=== PATIENT | female | born 1970 | race Caucasian/White ===

== ENCOUNTER → 2019-12-23 17:55 | Outpatient (CLI) | payer OTHER, SELFPAY ==
[2019-12-23 18:17] LABS: Basophils # 0.1 K/mm3 (0-0.2); Basophils % 0.5 % (0.1-2.0); Eosinophils # 0.3 K/mm3 (0.0-0.4); Eosinophils % 2.6 % (0.1-12.0); Hematocrit 42.7 % (37.0-47.0); Hemoglobin 14.4 g/dL (12.2-16.2); Lymphocytes # 2.9 K/mm3 (0.7-4.5); Lymphocytes % 26.7 % (10-50); Mean Corpuscular HGB Conc 33.7 g/dL (31.8-35.4); Mean Corpuscular Hemoglobin 30.6 pg (27.0-31.2); Mean Corpuscular Volume 90.7 fl (81-99); Mean Platelet Volume 8.8 fl (7.4-10.4); Monocytes # 0.6 K/mm3 (0.1-1.0); Monocytes % 5.5 % (1.7-9.3); Neutrophils # 7.1 K/mm3 (1.8-7.8); Neutrophils % 64.6 % (37.0-80.0); Platelet Count 363 K/mm3 (142-424); Red Blood Count 4.71 M/mm3 (4.20-5.40); Red Cell Distribution Width 15.3 % (11.5-17.5); White Blood Count 10.9 K/mm3 (4.8-10.8)
[2019-12-23 18:19] LABS: Chloride 108 mmol/L (98-107); Potassium 4.2 mmoL/L (3.5-5.1); Sodium 142 mmol/L (136-145)
[2019-12-23 18:21] LABS: Blood Urea Nitrogen 8 mg/dl (7-17); Estimated Glomerular Filt Rate 76 ml/min (>60); GFR (African American) 92 ML/MIN (>60)
[2019-12-23 18:22] LABS: Alanine Aminotransferase 19 U/L (12-78); Albumin Level 4.4 g/dl (3.5-5.0); Albumin/Globulin Ratio 1.5 (1.1-1.8); Alkaline Phosphatase 89 U/L (38-126); Anion Gap 14.2 mEq/L (5-15); Aspartate Amino Transferase 27 U/L (14-36); Bilirubin,Total 0.5 mg/dl (0.2-1.3); Calcium 9.9 mg/dl (8.4-10.2); Carbon Dioxide 24 mmol/L (22.0-30.0); Creatine Kinase 112 U/L (30-135); Globulin 2.9 g/dL (1.3-3.2); Glucose 102 mg/dl (74-100); Total Protein,Serum 7.3 g/dl (6.3-8.2)
[2019-12-23 18:28] LABS: C-Reactive Protein 10.6 mg/L (0-4)
[2019-12-23 18:39] LABS: T4 (Thyroxine) 13.5 ug/dl (5.53-11.0)
[2019-12-23 18:53] LABS: Thyroid Stimulating Hormone 1.79 uIU/mL (0.465-4.68)
[2019-12-23 18:54] LABS: Hemoglobin A1C 5.8 % (4.0-6.0)
== END ==
PROVIDERS: Visit Provider Family Medicine
DX: R53.83 Other fatigue (principal)
CPT/HCPCS: 80053; 82550; 83036; 84436; 84443; 85025; 86140

== ENCOUNTER → 2020-01-01 17:52 | Outpatient (CLI) | payer OTHER, SELFPAY ==
[2020-01-01 19:25] LABS: Erythrocyte Sedimentation Rate 17 mm/hr (0-20)
[2020-01-05 15:46] LABS: Anti-Centromere B Antibodies <0.2 AI (0.0-0.9); Anti-Jo-1 <0.2 AI (0.0-0.9); Anti-Smith Antibody <0.2 AI (0.0-0.9); Antichromatin Antibodies <0.2 AI (0.0-0.9); Antiscleroderma-70 Antibodies <0.2 AI (0.0-0.9); RNP Antibodies <0.2 AI (0.0-0.9); Sjogren's Anti-SS-A <0.2 AI (0.0-0.9); Sjogren's Anti-SS-B <0.2 AI (0.0-0.9)
[2020-01-06 09:59] LABS: Anti-DNA (DS) Ab Qn 1 IU/mL (0-9)
== END ==
PROVIDERS: Visit Provider Nurse Practitioner Family
DX: M25.50 Pain in unspecified joint (principal)
CPT/HCPCS: 85651; 86225; 86235

== ENCOUNTER → 2021-05-10 16:00 | Outpatient (CLI) | payer MEDICAID, SELFPAY | PROVIDERS: Visit Provider Family Medicine | DX: R42 Dizziness and giddiness (principal) | CPT/HCPCS: 87086 ==

== ENCOUNTER → 2021-06-23 07:09 | Outpatient (CLI) | payer MEDICAID, SELFPAY ==
--- NOTE | 2021-06-23 | CA_ITS ---
APPROVED REPORT Exam: Pharmacologic Technologist: Coby Garzon, Ht: 5 ft 3 in Wt: 167 lbs BSA: 1.79 m2 HR: 76 bpm BP: 112/79 mmHg Rhythm: NSR, RIGHTWARD AXIS, T WAVE ABNS ANTERIORLY Medical History Medications: Omeprazole,,,,, Albuterol,,,,, Allergies: No known drug allergies Cardiac Risk Factors: FHX of CAD, Smoking Stress Test Details Test: LEXISCAN HR Resting HR: 81 bpm Max Heart Rate (APMHR): 168.568401 bpm Max HR Achieved: 125 bpm Target HR (85% APMHR): 142.150216 bpm % of APMHR: 74.40 Recovery HR: 90 bpm BP Resting BP: 112/79 mmHg Max BP: 166/85 mmHg Recovery BP: 129.0/85.0 mmHg ECG Resting ECG: NSR, RIGHTWARD AXIS T WAVE ABNS ANTERIOLY Clinical Exercise duration: 04:05 min Highest Stage Achieved: Stress ECG Conclusion PT HAD CHEST PRESSURE, MILD NAUSEA, MILD SOA, AND HEAD DISCOMFORT. RARE PVC. NO SIGNIFICANT CHANGES. UNREMARKABLE LEXISCAN STRESS. MYOVIEW IMAGES REPORTED SEPARATELY. Test Summary REST 02:46 . . 81 . 112/ 79 . . Stage 1 01:00 . . 122 . . . . Stage 2 01:00 . . 117 . 153/ 91 . . Stage 3 01:00 . . 107 . 166/ 85 . . Stage 4 01:00 . . 101 . 132/ 79 . . Stage 4 01:05 . . 99 . 132/ 79 . Stop exercise at 04:05 RECOVERY 01:00 . . 100 . . . . RECOVERY 02:00 . . 91 . 113/ 82 . . RECOVERY 03:00 . . 97 . 118/ 85 . . RECOVERY 04:00 . . 90 . 118/ 85 . . RECOVERY 05:00 . . 91 . 129/ 85 . . RECOVERY 05:16 . . 91 . 129/ 85 . . Electronically signed by : Donnie Olmos MD 06/24/2021 11:57:29
--- NOTE | 2021-06-23 07:10 | NM_ITS ---
APPROVED REPORT Exam: Nuclear Stress Test Indication: chest pain Patient Location: Outpatient Stress Tech: Coby Garzon [place] Tech:Ivy Sheffield JETBrandon RT(R)(N) Ht: 5 ft 2 in Wt: 145 lbs Bra Size: 36c HR: 76 bpm BP: 112/79 mmHg BSA: 1.67 m2 BMI: 26.5 Procedure: Patient received a 0.4 mg of intravenous Lexiscan, resting heart rate 76 bpm, resting blood pressure 112/79 mmHg, with Lexiscan maximum heart rate achived was 118 bpm which is 85 % of the maximum predicted heart rate and blood pressure was 153/91 mmHg. Electrocardiogram Resting electrocardiogram shows sinus rhythm nonspecific ST-T changes, with Lexiscan there is less than 1.[address] segment depression noted from the baseline EKG. The EKG portion of the Lexiscan is nondiagnostic. Cardiac Stress and Resting SPECT Images: Cardiac Stress and Resting SPECT images were obtained using technetium 99m Myoview 29.9 mCi stress and 10.48 mCi at rest. Gated SPECT for analysis of segmental wall motion and calculation of the ejection fraction also done. Prone images were also obtained. Cardiac stress and resting SPECT images show a mild fixed defect in the anterior wall with normal contractility gated SPECT is likely secondary to soft tissue attenuation, no reversible ischemia seen, compared right ejection fraction is 68% with no regional wall motion abnormality, right ventricle is normal size and contractility. Conclusion: 1. The EKG portion of the exercise Myoview is nondiagnostic. 2. No scintigraphic evidence of reversible ischemia seen, computer derived ejection fraction is 68% with no regional wall motion abnormality, right ventricle is normal size and contractility. 3. Likely normal Lexiscan Myoview study. Electronically signed by : Donnie Olmos MD 06/24/2021 12:00:27
== END ==
PROVIDERS: PCP Family Medicine; Visit Provider Family Medicine
DX: R07.9 Chest pain, unspecified (principal)
CPT/HCPCS: 78452; 93017; A9502; J2785

== ENCOUNTER → 2022-01-17 12:35 | Outpatient (CLI) | payer MEDICAID, SELFPAY ==
--- NOTE | 2022-01-17 12:41 | XR_ITS ---
FINAL REPORT CLINICAL HISTORY: foot pain FINDINGS: LEFT FOOT Three views of the left foot demonstrate no acute fracture or dislocation. The visualized joint spaces are normally aligned. The joint spaces are preserved. The soft tissues are unremarkable. IMPRESSION: No acute bony abnormality. Reviewed, Interpreted and Dictated by Sammy Vasquez III, MD Transcribed by Honey Rob Authenticated and [facility]
--- NOTE | 2022-01-17 12:41 | XR_ITS ---
FINAL REPORT CLINICAL HISTORY: foot pain FINDINGS: RIGHT FOOT Three views of the right foot demonstrate no acute fracture or dislocation. The visualized joint spaces are normally aligned. The joint spaces are preserved. The soft tissues are unremarkable. IMPRESSION: No acute bony abnormality. Reviewed, Interpreted and Dictated by Sammy Vasquez III, MD Transcribed by Honey Rob Authenticated and [facility]
== END ==
PROVIDERS: PCP Family Medicine; Visit Provider Podiatrist
DX: M79.671 Pain in right foot (principal); M79.672 Pain in left foot
CPT/HCPCS: 73630

== ENCOUNTER → 2022-02-07 13:20 | Outpatient (CLI) | payer MEDICAID, SELFPAY ==
--- NOTE | 2022-02-07 13:20 | US_ITS ---
FINAL REPORT CLINICAL HISTORY: CLAUDICATION,REST PAIN,SMOKER,HLD FINDINGS: ANKLE-BRACHIAL PRESSURE INDICES Pressure indices are as follows: RIGHT LOWER EXTREMITY: Ankle-brachial pressure index: 1.0 Comments: Normal LEFT LOWER EXTREMITY: Ankle-brachial pressure index: 1.0 Comments: Normal CONCLUSION: No evidence of significant obstructive peripheral vascular disease of the lower extremities Reviewed, Interpreted and Dictated by Apolinar Sims MD Transcribed by Honey Rob Authenticated and [facility]
--- NOTE | 2022-02-07 14:11 | US_ITS ---
FINAL REPORT CLINICAL HISTORY: palpable fullness-- hx pf cancer FINDINGS: Sonographic images of the thyroid were obtained. The right lobe of the thyroid measures 4.8 x 1.8 x 2.2 cm. The left lobe of the thyroid measures 3.6 x 1.3 x 1.8 cm. The thyroid is heterogeneous. No discrete nodules are identified, may be related to diffuse goiter. IMPRESSION: Heterogeneous thyroid, may be related to diffuse goiter. Reviewed, Interpreted and Dictated by Apolinar Sims MD Transcribed by Fátima Thompson Authenticated and [facility]
== END ==
PROVIDERS: PCP Family Medicine; Visit Provider Family Medicine
DX: R22.1 Localized swelling, mass and lump, neck (principal)
CPT/HCPCS: 76536; 93923

== ENCOUNTER → 2022-04-11 14:00 | Outpatient (CLI) | payer MEDICAID, SELFPAY ==
[2022-04-11 18:27] LABS: Free T4 (Free Thyroxine) 1.39 ng/dl (0.78-2.19)
[2022-04-11 21:35] LABS: Thyroid Stimulating Hormone 1.13 uIU/mL (0.465-4.68)
== END ==
PROVIDERS: PCP Family Medicine; Visit Provider Family Medicine
DX: R53.83 Other fatigue (principal)
CPT/HCPCS: 84439; 84443

== ENCOUNTER → 2022-08-04 16:15 | Outpatient (CLI) | payer MEDICAID, SELFPAY ==
[2022-08-04 18:13] LABS: Basophils # 0.1 K/mm3 (0-0.2); Basophils % 0.4 % (0.1-2.0); Eosinophils # 0.3 K/mm3 (0.0-0.4); Hemoglobin 14.1 g/dL (12.2-16.2); Lymphocytes # 3.3 K/mm3 (0.7-4.5); Lymphocytes % 25.5 % (10-50); Mean Corpuscular HGB Conc 32.7 g/dL (31.8-35.4); Mean Corpuscular Hemoglobin 30.4 pg (27.0-31.2); Mean Corpuscular Volume 93.1 fl (81-99); Mean Platelet Volume 8.5 fl (7.4-10.4); Monocytes # 0.7 K/mm3 (0.1-1.0); Monocytes % 5.3 % (1.7-9.3); Neutrophils # 8.7 K/mm3 (1.8-7.8); Neutrophils % 66.8 % (37.0-80.0); Platelet Count 357 K/mm3 (142-424); Red Blood Count 4.62 M/mm3 (4.20-5.40); White Blood Count 13.1 K/mm3 (4.8-10.8)
[2022-08-04 18:41] LABS: Alanine Aminotransferase 16 U/L (12-78); Albumin Level 4.3 g/dl (3.5-5.0); Albumin/Globulin Ratio 1.5 (1.1-1.8); Alkaline Phosphatase 92 U/L (38-126); Anion Gap 14.8 mEq/L (5-15); Aspartate Amino Transferase 21 U/L (14-36); Bilirubin,Total 0.5 mg/dl (0.2-1.3); Blood Urea Nitrogen 10 mg/dl (7-17); Calcium 9.3 mg/dl (8.4-10.2); Carbon Dioxide 25 mmol/L (22.0-30.0); Chloride 105 mmol/L (98-107); Estimated Glomerular Filt Rate 65 ml/min (>60); GFR (African American) 79 ML/MIN (>60); Globulin 2.8 g/dL (1.3-3.2); Glucose 81 mg/dl (74-100); Potassium 3.8 mmoL/L (3.5-5.1); Sodium 141 mmol/L (136-145); Total Protein,Serum 7.1 g/dl (6.3-8.2)
[2022-08-04 19:10] LABS: Thyroid Stimulating Hormone 0.84 uIU/mL (0.465-4.68)
[2022-08-11 16:13] LABS: Testosterone, Total, LC/MS 4.7 ng/dL (.); Testosterone,Free <0.2 pg/mL (0.0-4.2)
== END ==
PROVIDERS: PCP Family Medicine; Visit Provider Family Medicine
DX: C80.1 Malignant (primary) neoplasm, unspecified (principal); M54.9 Dorsalgia, unspecified
CPT/HCPCS: 80053; 84402; 84403; 84443; 85025

== ENCOUNTER → 2022-08-16 12:49 | Outpatient (CLI) | payer MEDICAID, SELFPAY ==
--- NOTE | 2022-08-16 12:49 | US_ITS ---
FINAL REPORT CLINICAL HISTORY: goiter FINDINGS: Limited sonographic images of the thyroid were obtained. The thyroid demonstrates a somewhat heterogeneous echotexture. No mass is identified. The right lobe of the thyroid measures 4.1 x 1.7 x 1.9 cm. The left lobe of the thyroid measures 3.7 x 1.3 x 1.5 cm. IMPRESSION: Somewhat heterogeneous thyroid. Reviewed, Interpreted and Dictated by Sammy Vasquez III, MD Transcribed by Fátima Thompson Authenticated and . [facility]
== END ==
PROVIDERS: PCP Family Medicine; Visit Provider Family Medicine
DX: E04.9 Nontoxic goiter, unspecified (principal)
CPT/HCPCS: 76536

== ENCOUNTER → 2022-09-14 11:54 | Outpatient (CLI) | payer MEDICAID, SELFPAY ==
[2022-09-16 12:10] LABS: Thyroid Peroxidase Antibodies 10 IU/mL (0-34)
[2022-09-18 18:09] LABS: Thyroglobulin IMA CHARGE YES; Thyroglobulin Level <1.0 IU/mL (0.0-0.9)
== END ==
PROVIDERS: PCP Family Medicine; Visit Provider Family Medicine
DX: E04.9 Nontoxic goiter, unspecified (principal); E07.9 Disorder of thyroid, unspecified
CPT/HCPCS: 84443; 86376; 86800

== ENCOUNTER → 2022-09-27 08:07 | Outpatient (CLI) | payer MEDICAID, SELFPAY ==
[2022-09-27 09:34] LABS: Chloride 103 mmol/L (98-107); Potassium 3.7 mmoL/L (3.5-5.1); Sodium 142 mmol/L (136-145)
[2022-09-27 09:36] LABS: Blood Urea Nitrogen 10 mg/dl (7-17); Estimated Glomerular Filt Rate 75 ml/min (>60); GFR (African American) 91 ML/MIN (>60)
[2022-09-27 09:37] LABS: Alanine Aminotransferase 18 U/L (12-78); Albumin Level 4.1 g/dl (3.5-5.0); Albumin/Globulin Ratio 1.5 (1.1-1.8); Alkaline Phosphatase 80 U/L (38-126); Anion Gap 14.7 mEq/L (5-15); Aspartate Amino Transferase 21 U/L (14-36); Bilirubin,Total 0.2 mg/dl (0.2-1.3); Calcium 9.1 mg/dl (8.4-10.2); Carbon Dioxide 28 mmol/L (22.0-30.0); Globulin 2.7 g/dL (1.3-3.2); Glucose 77 mg/dl (74-100); Total Protein,Serum 6.8 g/dl (6.3-8.2)
== END ==
PROVIDERS: PCP Family Medicine; Visit Provider Family Medicine
DX: I70.8 Atherosclerosis of other arteries (principal)
CPT/HCPCS: 80053

== ENCOUNTER → 2022-09-28 08:35 | Outpatient (CLI) | payer MEDICAID, SELFPAY ==
--- NOTE | 2022-09-28 08:35 | CT_ITS ---
FINAL REPORT TECHNIQUE: Axial CT images were obtained from the lung bases to the mid abdomen before and following IV contrast administration in multiple phases. Reformatted images were reconstructed from the axial dataset provided for interpretation.This study was performed with techniques to keep radiation doses as low as reasonably achievable (ALARA). Individualized dose reduction techniques using automated exposure control or adjustment of mA and/or kV according to the patient's size were employed. CLINICAL HISTORY: Kinked Celiac Artery FINDINGS: CTA ABDOMEN ABDOMEN: Liver, gallbladder and bile ducts: The liver enhances homogeneously without suspicious focal hepatic lesion.. The patient is status post cholecystectomy. No biliary ductal dilatation. Adrenal glands: The adrenal glands are morphologically unremarkable without suspicious lesion. Kidneys, ureters: No suspicious renal stones. No nephrolithiasis. No hydronephrosis. Spleen: The spleen is normal in size. Pancreas: The pancreas is unremarkable. Gastrointestinal system and mesentery: There is no evidence of bowel obstruction. The appendix is visualized and unremarkable. There is no significant mesenteric inflammation. Lymph nodes: No pathologically enlarged abdominal lymph nodes are present. Vessels: There is no evidence of abdominal aortic aneurysm or dissection. The proximal celiac axis is very tortuous with mild narrowing proximally of a proximally 50%. The superior ear mesenteric artery is normal. The inferior mesenteric artery is patent. The renal arteries appear normal. Peritoneum: No free intraperitoneal fluid or pneumoperitoneum. Body wall: No body wall contusion. No significant body wall hernias. Bones: No acute fracture. IMPRESSION: No evidence of abdominal aortic aneurysm. Mild, less than 50% narrowing of the proximal celiac axis. Reviewed, Interpreted and Dictated by Sammy Vasquez III, MD Transcribed by Nica Frank Authenticated and [facility]
--- NOTE | 2022-09-28 08:35 | CT_ITS ---
FINAL REPORT CLINICAL HISTORY: lung cancer screening CURRENT SMOKER 1.5PPD X40 YEARS FINDINGS: Axial images were obtained from the lung apex to the mid abdomen by computed tomography. Low-dose protocol was utilized. CTDl vol(mGy): 2.90 DLP (mGy-cm): 96.38 FINDINGS: There is no axillary adenopathy. There is no hilar or mediastinal adenopathy. The heart size is normal. There is no pericardial or pleural effusion. There is mild emphysema and mild scarring. Limited images of the upper abdomen show postoperative changes from cholecystectomy. Lung window images demonstrate a calcified granuloma in the left lower lobe. There is a 3 mm noncalcified nodule in the left lower lobe.. IMPRESSION: Lung RADS category 2. Recommend 12 month follow-up low-dose chest CT. Reviewed, Interpreted and Dictated by Sammy Vasquez III, MD Transcribed by Nica Frank Authenticated and [facility]
== END ==
PROVIDERS: PCP Family Medicine; Visit Provider Family Medicine
DX: I70.8 Atherosclerosis of other arteries (principal); Z85.048 Personal history of other malignant neoplasm of rectum, rectosigmoid junction, and anus; Z85.41 Personal history of malignant neoplasm of cervix uteri; Z87.891 Personal history of nicotine dependence; Z12.2 Encounter for screening for malignant neoplasm of respiratory organs
CPT/HCPCS: 71271; 74175; Q9967

== ENCOUNTER 2022-12-05 07:53 | Day surgery (SDC) | payer MEDICAID, SELFPAY ==
[2022-12-01 11:13] VITALS: BMI 28.3
[2022-12-05 08:20] VITALS: BP 124/93; PULSE 85; RESP 18; TEMP 36.1; O2SAT 95
--- NOTE | 2022-12-05 08:37 | P.PNANES_ITS ---
[facility] Disclaimer: The information contained in this section may have been updated after the patient was seen, as this information can be updated by other users. Medical History Anal cancer Cervical cancer GERD (gastroesophageal reflux disease) History of umbilical hernia Hypothyroid Splenic infarct Surgical History History of cholecystectomy History of hysterectomy History of rectal surgery Family History Brother Colon cancer Other Family history of cardiac arrest Social History Smoking Status: Current every day smoker tobacco type: cigarettes alcohol intake: never substance use type: denies use current occupational status: unemployed Travel in the last 8 weeks: None caffeine: Yes [facility] Anesthesia Checklist Patient Identification Patient Identification: Arm Band and Verbal (Name & ) Structural Data Admitted From: Home Planned Operative Procedure/s: Colonoscopy Consent for Planned Operative Procedure(s) Verified: Yes NPO Status Verified Time NPO: 07:40 Additional verifications Anesthesia Reactions: No Airway Assessment Mallampati Score:: Class IV C-Spine Mobility Assessed: Yes TMJ Mobility Assessed: Yes Dentition: Edentulous Neurological Assessment Level of Consciousness: Awake Hx Seizures: No Numbness or tingling in extremities: No Anesthesia Plan Anesthesia Risk discussed: Yes Anesthesia Plan: Verified ASA Class: III Anesthesia Type: MAC
[2022-12-05 10:01] VITALS: O2SAT 95
[2022-12-05 10:34] VITALS: BP 87/60; PULSE 83; RESP 14; TEMP 36.3; O2SAT 91
--- NOTE | 2022-12-05 10:37 | HMH.SCOPE ---
Procedure: Date: 12/05/22 Patient Date of :: 1970 Procedure Performed:: Colonoscopy Indications:: History of colon polyps History of anal cancer (treated at the [facility]) Performing Provider:: Yoan Oden MD Referring Provider:: . Sedation:: Monitored anesthesia care Procedure:: After informed consent was obtained the patient was taken to the endoscopy suite. Sedation ensued after the patient was transferred to the left lateral decubitus position. Pulse, blood pressure, and oxygen saturation were monitored throughout the procedure. Digital rectal exam revealed no significant abnormality. The colonoscope was placed in position. The entire colon was evaluated. The colonoscope was carefully removed and the patient was transferred to recovery in stable condition. Please see findings and specimens below for detail. Findings:: Hemorrhoidal cushions Bowel preparation moderate to poor Fairly significant lack of relaxation (specifically pronounced within sigmoid colon) Specimens:: none Recommendations:: Repeat colonoscopy in 1-2 years with extended/alternate bowel preparation Complications:: Moderate to poor bowel preparation Estimated blood obtained (mL): 0 Colonoscopy Component Colonoscopy Component Was a colonoscopy performed during today's procedure?: Yes Recommended follow up colonoscopy of at least 10 years?: No If no, follow up colonoscopy recommended in ___ years?: 1-2 Reason for not recommending >/= 10 yr follow-up interval?: (See above)
[2022-12-05 10:44] VITALS: BP 90/55; PULSE 78; RESP 15; O2SAT 92
[2022-12-05 10:54] VITALS: BP 105/72; PULSE 75; RESP 18; O2SAT 98
--- NOTE | 2022-12-05 11:00 | SUR.PHASEII ---
1034Osmin Rdz DATA CONTROL ASSISTANT at bedside aware of O2 and BP. nno.
[2022-12-05 11:04] VITALS: BP 107/78; PULSE 73; RESP 16; O2SAT 99
== END 2022-12-05 11:20 | disposition home or self-care (01) ==
PROVIDERS: PCP Family Medicine; Visit Provider Surgery
PROC: 0DJD8ZZ Inspection of Lower Intestinal Tract, Via Natural or Artificial Opening Endoscopic (ICD-10-PCS; CPT 45378; principal; 2022-12-05 09:00)
DX: Z12.11 Encounter for screening for malignant neoplasm of colon (principal); Z86.010 Personal history of colon polyps; Z85.048 Personal history of other malignant neoplasm of rectum, rectosigmoid junction, and anus
CPT/HCPCS: 45378; J2704

== ENCOUNTER 2023-04-30 10:54 | Outpatient (CLI) | payer MEDICAID, SELFPAY ==
--- NOTE | 2023-04-30 11:00 | US_ITS ---
FINAL REPORT CLINICAL HISTORY: Decreased pedal pulses, smoker, hld, COMPARISON: 02/07/2022 FINDINGS: LOWER EXTREMITY SEGMENTAL PRESSURE MEASUREMENTS Pressure indices are as follows: RIGHT LOWER EXTREMITY: Thigh: 0.96 Calf: 0.98 Ankle, posterior tibial artery: 1.04 Ankle, dorsalis pedis: 0.91 Toe: 0.62 Comments: Within normal limits LEFT LOWER EXTREMITY: Thigh: 0.99 Calf: 0.94 Ankle, posterior tibial artery: 0.84 Ankle, dorsalis pedis: 0.98 Toe: 0.68 Comments: Posterior tibial mildly diminished, may reflect isolated disease limited to left posterior artery circulation IMPRESSION: No overall significant peripheral vascular disease, although probable mild peripheral vascular disease in the posterior tibial artery on the left. Reviewed, Interpreted and Dictated by Faye Becker MD Transcribed by Laura Bush Authenticated and [facility]
== END 2023-04-30 23:59 ==
LOC: RT 10:54
PROVIDERS: PCP Family Medicine; Visit Provider Podiatrist
DX: R09.89 Other specified symptoms and signs involving the circulatory and respiratory systems (principal)
CPT/HCPCS: 93923

== ENCOUNTER 2023-05-15 11:18 | Outpatient (CLI) | payer MEDICAID, SELFPAY ==
[2023-05-15 11:52] LABS: Blood Urea Nitrogen 9 mg/dl (7-17); Estimated Glomerular Filt Rate 75 ml/min (>60); GFR (African American) 90 ML/MIN (>60)
[2023-05-15 14:32] LABS: Occult Blood,Stool Negative (Negative)
[2023-05-17 12:39] LABS: Bile Acids 2.9
[2023-05-20 23:00] LABS: Calprotectin, Fecal 76 ug/g (0-120)
[2023-05-22 13:18] LABS: Pancreatic Elastase, Fecal 192 (>200)
== END 2023-05-15 23:59 ==
LOC: LAB.DROPOF 11:19
PROVIDERS: Physician Assistant; PCP Family Medicine; Visit Provider Nurse Practitioner
DX: R19.5 Other fecal abnormalities (principal); R10.10 Upper abdominal pain, unspecified; C21.0 Malignant neoplasm of anus, unspecified; K58.9 Irritable bowel syndrome, unspecified; Z90.49 Acquired absence of other specified parts of digestive tract; Z12.11 Encounter for screening for malignant neoplasm of colon
CPT/HCPCS: 36415; 82239; 82272; 82565; 82656; 83993; 84520; G0328

== ENCOUNTER 2023-06-08 09:46 | Outpatient (CLI) | payer MEDICAID, SELFPAY ==
--- NOTE | 2023-06-08 09:47 | CT_ITS ---
FINAL REPORT CLINICAL HISTORY: claudication of lower extremities harpreet/abnl fatoumata COMPARISON: None FINDINGS: Thin section axial CT images of the abdomen, pelvis and lower extremities were obtained with contrast. Multiplanar reformatted images were also obtained and reviewed. ABDOMEN AND PELVIS: There is no abdominal aortic dissection. There is mild ectasia of the infrarenal abdominal aorta. The celiac axis and proximal superior mesenteric artery are unremarkable. There is an enlarged tortuous gastroduodenal artery of uncertain etiology. There is no renal artery stenosis. The inferior mesenteric artery is patent. There is no significant stenosis of the right common iliac artery or external right iliac artery. There is no significant stenosis of the left common iliac artery or external left iliac artery. The internal iliac arteries are patent. RIGHT LOWER EXTREMITY: There is no significant stenosis of the right common femoral or superficial femoral arteries. The right deep femoral artery is patent. The right popliteal artery is patent. There is three-vessel runoff to the distal lower leg. LEFT LOWER EXTREMITY: There is no significant stenosis of the left common femoral or superficial femoral arteries. The left deep femoral artery is patent. The left popliteal artery is patent. There is three-vessel runoff to the distal lower leg. IMPRESSION: Prominent tortuous gastroduodenal artery of uncertain etiology. If indicated, catheter angiogram could further evaluate. Reviewed, Interpreted and Dictated by Sammy Vasquez III, MD Transcribed by Laura Bush Authenticated and . [facility]
[2023-06-08] MEDS: 0.9 % SODIUM CHLORIDE 50 ML VIAL 100 ML IV (10:51)
[2023-06-08] MEDS: IOPAMIDOL-370 (76%);100ML BOTTLE 120 ML IV (10:51)
[2023-06-08] MEDS: SODIUM CHLORIDE 0.9% 10ML SYR (RAD ONLY) 10 ML IV (10:51)
== END 2023-06-08 23:59 ==
LOC: RAD 09:47
PROVIDERS: PCP Family Medicine; Visit Provider Physician Assistant
DX: I73.9 Peripheral vascular disease, unspecified (principal); R68.89 Other general symptoms and signs; F17.210 Nicotine dependence, cigarettes, uncomplicated
CPT/HCPCS: 75635; Q9967

== ENCOUNTER 2023-06-13 11:13 | Outpatient (CLI) | payer MEDICAID, SELFPAY ==
[2023-06-13 11:38] LABS: Basophils # 0.1 K/mm3 (0-0.2); Eosinophils # 0.3 K/mm3 (0.0-0.4); Eosinophils % 2.1 % (0.1-12.0); Hematocrit 44.5 % (37.0-47.0); Hemoglobin 14.5 g/dL (12.2-16.2); Lymphocytes # 2.8 K/mm3 (0.7-4.5); Lymphocytes % 23.7 % (10-50); Mean Corpuscular HGB Conc 32.5 g/dL (31.8-35.4); Mean Corpuscular Hemoglobin 32.1 pg (27.0-31.2); Mean Corpuscular Volume 98.9 fl (81-99); Monocytes # 0.6 K/mm3 (0.1-1.0); Monocytes % 4.8 % (1.7-9.3); Neutrophils # 8.2 K/mm3 (1.8-7.8); Neutrophils % 68.3 % (37.0-80.0); Platelet Count 311 K/mm3 (142-424); Red Cell Distribution Width 15.2 % (11.5-17.5); White Blood Count 11.9 K/mm3 (4.8-10.8)
[2023-06-13 12:16] LABS: Free T4 (Free Thyroxine) 1.36 ng/dl (0.78-2.19)
[2023-06-13 12:23] LABS: Chloride 108 mmol/L (98-107); Potassium 3.8 mmoL/L (3.5-5.1); Sodium 141 mmol/L (136-145)
[2023-06-13 12:25] LABS: Alanine Aminotransferase 23 U/L (12-78); Aspartate Amino Transferase 27 U/L (14-36); Blood Urea Nitrogen 6 mg/dl (7-17); Estimated Glomerular Filt Rate 75 ml/min (>60); GFR (African American) 90 ML/MIN (>60)
[2023-06-13 12:26] LABS: Alkaline Phosphatase 94 U/L (38-126); Anion Gap 9.8 mEq/L (5-15); Bilirubin,Direct 0.3 mg/dl (0.0-0.4); Bilirubin,Total 0.3 mg/dl (0.2-1.3); Calcium 9.5 mg/dl (8.4-10.2); Carbon Dioxide 27 mmol/L (22.0-30.0); Glucose 85 mg/dl (74-100); HDL Cholesterol 31 mg/dl (40-60); Magnesium 1.9 mg/dl (1.6-2.3); Total Protein,Serum 6.6 g/dl (6.3-8.2); Triglycerides 245 mg/dl (30-150); VLDL Cholesterol 49 mg/dL (0-40)
[2023-06-13 12:37] LABS: Chol/HDL Ratio 11.5 (1-3.5); Cholesterol 355 mg/dl (140-200); Direct LDL Cholesterol 211.88 mg/dL (100-129)
[2023-06-13 13:44] LABS: Hemoglobin A1C 5.7 % (4.0-6.0)
== END 2023-06-13 23:59 ==
PROVIDERS: PCP Family Medicine; Visit Provider Physician Assistant
DX: E04.8 Other specified nontoxic goiter (principal); I25.10 Atherosclerotic heart disease of native coronary artery without angina pectoris; I73.9 Peripheral vascular disease, unspecified; M79.2 Neuralgia and neuritis, unspecified; Z72.0 Tobacco use; Z79.899 Other long term (current) drug therapy
CPT/HCPCS: 36415; 80048; 80061; 80076; 83036; 83735; 84439; 84443; 85025

== ENCOUNTER 2023-07-05 12:05 | Day surgery (SDC) | payer MEDICAID, SELFPAY ==
--- NOTE | 2023-06-26 16:11 | SUR.PREOP ---
per [facility] Cardiology: pt to hold ASA 81mg 5 days prior to procedure. Cardiac clearance obtained, placed in pt chart
[2023-07-02 13:48] VITALS: BMI 29.2
[2023-07-05 12:40] VITALS: BP 147/92; PULSE 83; RESP 18; TEMP 36.2; O2SAT 99
[2023-07-05] MEDS: LACTATED RINGERS 1000ML 1,000 ML 100 ML IV (12:48)
--- NOTE | 2023-07-05 13:37 | P.PNANES_ITS ---
[facility] Disclaimer: The information contained in this section may have been updated after the patient was seen, as this information can be updated by other users. Medical History CAD (coronary artery disease) Abnormal ankle brachial index (AKY) Claudication History of umbilical hernia Splenic infarct GERD (gastroesophageal reflux disease) Hypothyroid Cervical cancer Anal cancer Surgical History History of hernia surgery History of rectal surgery History of hysterectomy History of cholecystectomy Family History Brother Colon cancer Other Family history of cardiac arrest Social History (Updated 07/05/23 @ 12:42 by Mis Brunson RN) Smoking Status: Current every day smoker tobacco type: cigarettes alcohol intake: never substance use type: denies use current occupational status: unemployed Travel in the last 8 weeks: None caffeine: Yes [facility] Anesthesia Checklist Patient Identification Patient Identification: Verbal (Name & ) Structural Data Admitted From: Home Planned Operative Procedure/s: colonoscopy Consent for Planned Operative Procedure(s) Verified: Yes Additional verifications Anesthesia Reactions: No Airway Assessment Mallampati Score:: Class II C-Spine Mobility Assessed: Yes TMJ Mobility Assessed: Yes Dentition: Edentulous Neurological Assessment Level of Consciousness: Awake, Alert and Appropriate Anesthesia Plan Anesthesia Risk discussed: Yes Anesthesia Plan: Verified ASA Class: II Anesthesia Type: MAC
[2023-07-05 13:40] VITALS: O2SAT 96
--- NOTE | 2023-07-05 14:02 | HMH.SCOPE ---
Procedure: Date: 07/05/23 Patient Date of :: 1970 Procedure Performed:: Screening colonoscopy Indications:: Personal history of colorectal cancer Performing Provider:: Karin Baker MD Referring Provider:: Val Baker APRN Sedation:: propofol Procedure:: After placing the patient in the left lateral decubitus position, the colonoscopy was gently inserted into the rectum and under direct visualization advanced to the cecum which was identified by transillumination in the right lower quadrant, identification of the ileocecal valve, appendiceal orifice, and cecal strap. Color, texture, mucosa, and anatomy of the colon were carefully examined with the scope. Findings:: Anal canal: normal Rectum: normal, examined with retroflex view Sigmoid colon: normal without polyps or inflammatory changes Descending colon: normal without polyps or inflammatory changes Splenic flexure: normal Transverse colon: normal without polyps or inflammatory changes Hepatic flexure: normal Ascending colon: normal without polyps or inflammatory changes Cecum: normal Terminal ileum: not visualized Impression: Overall normal colonoscopy exam Recommendations:: Follow up examination in about FIVE years or so, sooner if clinically indicated in view of personal history of colorectal cancer. Complications:: None Estimated blood obtained (mL): 0 Colonoscopy Component Colonoscopy Component Was a colonoscopy performed during today's procedure?: Yes Recommended follow up colonoscopy of at least 10 years?: No If no, follow up colonoscopy recommended in ___ years?: Five Reason for not recommending >/= 10 yr follow-up interval?: Personal history
[2023-07-05 14:07] VITALS: BP 103/66; PULSE 85; RESP 16; TEMP 36.3; O2SAT 93
[2023-07-05 14:17] VITALS: BP 101/68; PULSE 87; RESP 16; O2SAT 92
[2023-07-05 14:27] VITALS: BP 103/72; PULSE 67; RESP 16; O2SAT 97
[2023-07-05 14:37] VITALS: BP 118/69; PULSE 67; RESP 16; TEMP 36.6; O2SAT 97
== END 2023-07-05 14:45 | disposition home or self-care (01) ==
PROVIDERS: PCP Family Medicine; Visit Provider Internal Medicine Gastroenterology
PROC: 0DJD8ZZ Inspection of Lower Intestinal Tract, Via Natural or Artificial Opening Endoscopic (ICD-10-PCS; CPT 45378; principal; 2023-07-05 13:30)
DX: Z12.11 Encounter for screening for malignant neoplasm of colon (principal); Z85.038 Personal history of other malignant neoplasm of large intestine
CPT/HCPCS: 45378

== ENCOUNTER 2023-08-29 10:13 | Outpatient (CLI) | payer MEDICAID, SELFPAY ==
--- NOTE | 2023-08-29 10:13 | CT_ITS ---
FINAL REPORT TECHNIQUE: Pre and post contrast images of the abdomen were obtained. IV contrast was administered. Coronal reformatted images were also obtained and reviewed.This study was performed with techniques to keep radiation doses as low as reasonably achievable (ALARA). Individualized dose reduction techniques using automated exposure control or adjustment of mA and/or kV according to the patient's size were employed. CLINICAL HISTORY: eval pancrease and liver COMPARISON: CTA abdomen 09/28/2022 and 06/08/2023 FINDINGS: On the pre infusion images, no kidney stones are identified. Scarring is noted at the lung bases.. There is moderate diffuse fatty infiltration of the liver. The liver is enlarged measuring 21 cm in craniocaudal dimension. The gallbladder is surgically absent. The spleen, pancreas, adrenal glands, and kidneys are unremarkable. The appendix is unremarkable. IMPRESSION: Hepatomegaly and fatty liver. Reviewed, Interpreted and Dictated by Apolinar Sims MD Transcribed by Laura Bush Authenticated and . [facility]
[2023-08-29 10:45] LABS: Blood Urea Nitrogen 6 mg/dl (7-17); Estimated Glomerular Filt Rate 75 ml/min (>60); GFR (African American) 90 ML/MIN (>60)
[2023-08-29] MEDS: SODIUM CHLORIDE 0.9% 10ML SYR (RAD ONLY) 10 ML IV (11:11)
[2023-08-29] MEDS: 0.9 % SODIUM CHLORIDE 50 ML VIAL IV (11:11)
[2023-08-29] MEDS: IOPAMIDOL-370 (76%);100ML BOTTLE 75 ML IV (11:11)
== END 2023-08-29 23:59 | disposition home or self-care (01) ==
LOC: RAD 10:13
PROVIDERS: PCP Family Medicine; Visit Provider Nurse Practitioner
DX: R10.13 Epigastric pain (principal); Z85.038 Personal history of other malignant neoplasm of large intestine; Z72.0 Tobacco use
CPT/HCPCS: 36415; 74170; 82565; 84520; Q9967

== ENCOUNTER 2023-08-29 11:39 | Inpatient (IN) | payer MEDICAID, SELFPAY ==
[2023-08-29] VITALS (36 sets, daily range): BP systolic 70–145; BP diastolic 46–95; PULSE 101–131; RESP 20–29; TEMP 36.1–37.1; O2SAT 91–126; BMI 28.3; BMI 25.7; BMI 27.1
--- NOTE | 2023-08-29 11:40 | ECG_ITS ---
APPROVED REPORT Exam: Resting ECG HR:131 bpm ECG Measurements Heart Rate 131 AXES MD 125 P 90 QRSd 92 QRS 96 QT 325 T 67 QTc 402 Conclusion SINUS TACHYCARDIA BORDERLINE RIGHT AXIS DEVIATION [QRS AXIS > 90] Nonspecific ST/T wave changes without acute STEMI. Electronically signed by : CARLYLE TOLENTINO, 08/29/2023 16:10:23
[2023-08-29] MEDS: EPINEPHrine 0.1 MG/ML 10ML SYRINGE (CRASH CART) 0.100000000000000006 MG IV (11:44)
[2023-08-29] MEDS: NOREPINEPHRINE BITARTRATE/D5W 8 MG/250 ML PLAST..BAG 15 MG IV (11:45)
[2023-08-29] MEDS: EPINEPHrine 5 MG in 0.9 % SODIUM CHLORIDE 250 ML 91.7999999999999972 MG IV ×2 (11:45→14:50)
[2023-08-29] MEDS: MIDAZOLAM HCL IN 0.9 % NACL/PF 50 MG/50 ML PLAST..BAG 1.39999999999999991 MG IV (11:52)
[2023-08-29] MEDS: FENTANYL CITRATE/PF 1,000 MCG in 0.9 % SODIUM CHLORIDE 80 ML 7.5 MCG IV (11:54)
--- NOTE | 2023-08-29 12:11 | PC.NURSE ---
pt arrived to ed from ct at 11:38
--- NOTE | 2023-08-29 12:13 | XR_ITS ---
FINAL REPORT CLINICAL HISTORY: ET tube placement FINDINGS: A single view of the chest was obtained. An endotracheal tube lies 3 cm superior to the jessenia. The heart is normal in size. The mediastinum is unremarkable. Mild chronic changes are seen in the lungs. There is no acute pulmonary abnormality. There is no pleural effusion. There is no pneumothorax. There is no acute osseous abnormality. IMPRESSION: No acute cardiopulmonary process. Reviewed, Interpreted and Dictated by Apolinar Sims MD Transcribed by Nica Frank Authenticated and [facility]
--- NOTE | 2023-08-29 12:15 | CT_ITS ---
FINAL REPORT TECHNIQUE: Axial CT images were performed through the head. Coronal reformatted images were submitted. This study was performed with techniques to keep radiation doses as low as reasonably achievable (ALARA). Individualized dose reduction techniques using automated exposure control or adjustment of mA and/or kV according to the patient's size were employed. CLINICAL HISTORY: AMS; hx of contrast reaction today FINDINGS: The ventricles are normal in size. There is no evidence of hemorrhage. There is no mass or edema identified. There is no abnormal extra-axial fluid seen. There is extensive mucoperiosteal thickening in the right ethmoid air cells, both maxillary sinuses, and the sphenoid sinuses. An air-fluid level is seen in the right maxillary sinus. IMPRESSION: No acute intracranial process. Acute on chronic pansinusitis. Reviewed, Interpreted and Dictated by Apolinar Sims MD Transcribed by Nica Frank Authenticated and [facility]
[2023-08-29 12:16] LABS: ABG Base Excess -14.8 mmol/L (-2.4-2.3); ABG Oxygen Saturation 100 % (90-100); ABG PO2 369.7 mmhg (80-100)
[2023-08-29 12:18] LABS: Oxygen 100 %; PEEP 5; Source ALINE; Tidal Volume 400; Vent Rate 20
--- NOTE | 2023-08-29 12:18 | XR_ITS ---
FINAL REPORT CLINICAL HISTORY: NG TUBE PLACEMENT COMPARISON: 2 hours prior FINDINGS: A single view of the chest was obtained. The ET tube lies at the level of the jessenia. An NG tube is in the stomach. The heart is normal in size. The mediastinum is unremarkable. Mild chronic changes are seen in both lungs. The lungs are otherwise clear. There is no pleural effusion. There is no pneumothorax. IMPRESSION: No acute cardiopulmonary process. ET tube at the level of the jessenia. NG tube in the stomach. Reviewed, Interpreted and Dictated by Apolinar Sims MD Transcribed by Nica Frank Authenticated and [facility]
[2023-08-29 12:19] LABS: ABG PCO2 62.8 mmhg (35.0-45.0); ABG PH 7.03 mmol/L (7.35-7.45)
--- NOTE | 2023-08-29 12:19 | PC.NURSE ---
DR TOLENTINO UPDATING FAMILY
[2023-08-29 12:41] LABS: Basophils # 0.6 K/mm3 (0-0.2); Basophils % 2.1 % (0.1-2.0); Eosinophils # 0.4 K/mm3 (0.0-0.4); Eosinophils % 1.2 % (0.1-12.0); Hematocrit 52.3 % (37.0-47.0); Hemoglobin 16.4 g/dL (12.2-16.2); Lymphocytes # 9.4 K/mm3 (0.7-4.5); Lymphocytes % 32.3 % (10-50); Mean Corpuscular HGB Conc 31.4 g/dL (31.8-35.4); Mean Corpuscular Hemoglobin 31.3 pg (27.0-31.2); Mean Corpuscular Volume 99.6 fl (81-99); Mean Platelet Volume 9.2 fl (7.4-10.4); Monocytes # 0.8 K/mm3 (0.1-1.0); Monocytes % 2.7 % (1.7-9.3); Neutrophils # 18.1 K/mm3 (1.8-7.8); Neutrophils % 61.8 % (37.0-80.0); Platelet Count 369 K/mm3 (142-424); Red Blood Count 5.25 M/mm3 (4.20-5.40); White Blood Count 29.3 K/mm3 (4.8-10.8)
--- NOTE | 2023-08-29 12:43 | PC.NURSE ---
LAB at to collect blood cx
--- NOTE | 2023-08-29 12:49 | PC.NURSE ---
rapid response called @ 1120. prior to arrival to ed: pt was given 2 doses of 0.3mg epi 100mg of solu-medrol 30mg og etomidate 100mg of succ pt was intubated solar consultant @ 1132 23 @ lip 7.5ett Pt arrived to ed @ 1138 After arrival to ed: 0.01mg of epi given per MD verbal order pt's heart rate was confirmed via u/s @ 1143 arterial line placed per MD epi drip started (see MAR for rate) 1L of LR started fentanyl & versed drips started per MD (see MAR) talbot inserted @ 1218 16FR NG placed
[2023-08-29 12:59] LABS: Lactic Acid 5.2 mmol/L (0.7-2.1)
[2023-08-29 13:00] LABS: MANUAL DIFFERENTIAL MANUAL DIFFERENTIAL (MANUAL DIFF)
[2023-08-29 13:14] LABS: Microscopic, Urine URINE MICROSCOPIC (MICROSCOPIC)
--- NOTE | 2023-08-29 13:15 | PC.NURSE ---
Dr. Morgan at BS
[2023-08-29 13:17] LABS: Appearance,Urine CLEAR (Clear); Bilirubin,Urine Negative (Negative); Blood, Urine Negative (Negative); Color,Urine YELLOW (Yellow); Glucose,Urine (UA) Negative (Negative); Ketones,Urine Negative (Negative); Leukocyte Esterase,Urine Negative (Negative); Nitrate,Urine Negative (Negative); PH,Urine 6.5 (5.0-8.5); Protein,Urine Negative (Negative); Specific Gravity, Urine <= 1.005 (1.005-1.030)
--- NOTE | 2023-08-29 13:23 | PC.NURSE ---
Dr. Zamarripa speaking with Dr. Schmid at this time
--- NOTE | 2023-08-29 13:28 | PC.NURSE ---
pt assigned to room 218-ICU. admissions notified.
[2023-08-29 13:39] LABS: Activated Partial Thrombo Time 26.2 seconds (22.8-30.6); INR 1.15 (0.9-1.1); Prothrombin Time 12.3 seconds (10.1-12.5)
[2023-08-29 13:42] LABS: Chloride 112 mmol/L (98-107)
[2023-08-29 13:43] LABS: Sodium 141 mmol/L (136-145)
[2023-08-29 13:45] LABS: Alanine Aminotransferase 28 U/L (12-78); Anion Gap 13.7 mEq/L (5-15); Aspartate Amino Transferase 40 U/L (14-36); Blood Urea Nitrogen 6 mg/dl (7-17); Carbon Dioxide 18 mmol/L (22.0-30.0); Creatinine Clearance Estimated 79 mL/min (50-200); Estimated Glomerular Filt Rate 65 ml/min (>60); GFR (African American) 79 ML/MIN (>60)
[2023-08-29 13:46] LABS: Albumin/Globulin Ratio 1.2 (1.1-1.8); Alkaline Phosphatase 80 U/L (38-126); Bilirubin,Total 0.4 mg/dl (0.2-1.3); Calcium 7.5 mg/dl (8.4-10.2); Globulin 2.5 g/dL (1.3-3.2); Glucose 236 mg/dl (74-100); Magnesium 1.6 mg/dl (1.6-2.3); Phosphorous 4.5 mg/dl (2.5-4.5); Total Protein,Serum 5.5 g/dl (6.3-8.2)
--- NOTE | 2023-08-29 13:47 | HMH.PHAINT1 ---
Pharmacy Intervention Comments: home medication list verified using list from outpatient pharmacy
--- NOTE | 2023-08-29 13:50 | HMH.EDGENADL ---
Discharge Plan Disposition Patient Disposition: Admitted Condition: Serious Clinical Impressions Clinical Impression: Anaphylactic shock, Acute hypoxic respiratory failure, AMS (altered mental status), Acidosis, lactic Discharge ED Provider: Cinthya Zamarripa General Adult HPI General Chief complaint: Allergic Reaction Stated complaint: rapid response Time Seen by Provider: 08/29/23 11:40 Mode of Arrival: Carried Limitations: intubated Description of Symptoms (Recalled from ER Triage Doc. by RN): pt was in CT outpt getting a scan when a rapid repsonse was called. pt brought to ED intubated History of Present Illness HPI narrative: This patient is a 53-year-old female with a reported history of colorectal cancer, CAD, IBS, GERD, hyperlipidemia, COPD, hypothyroidism, and chronic pancreatitis on medical record review presenting with concern for respiratory distress. Patient was upstairs in outpatient CT scan getting a CT scan pancreatic protocol for monitoring of chronic abdominal pain and pancreatitis. I was called to rapid response upstairs as CT, at which point I found the patient lying on the CT table in acute distress. She was having agonal respirations with perioral cyanosis. She also had an erythematous macular rash covering most of her body. She was noted to be hypotensive and tachycardic at that time with an O2 saturation in the 50s. Per CT staff, this had started right after receiving IV contrast. She had had IV contrast in the past and had no issues with this according to both radiation protection technician as well as the patient's . arrives and notes that the patient was in her usual state of health today with the exception of her chronic abdominal pain. Patient does not contribute to history given acuity of condition. Related Data Home Medications Medication Instructions Recorded Confirmed dicyclomine 20 mg tablet 20 mg PO TIDP PRN abdominal pain 08/29/23 08/29/23 evolocumab 140 mg/mL subcutaneous 140 mg SQ .[id number] 08/29/23 08/29/23 pen injector (Tim Rivera) fluticasone propionate 50 2 spray intranasal DAILYP PRN 08/29/23 08/29/23 mcg/actuation nasal nasal congestion spray,suspension nitroglycerin 0.4 mg sublingual 0.4 mg sublingual Q5MINP PRN chest 08/29/23 08/29/23 tablet pain omeprazole 20 mg capsule,delayed 20 mg PO DAILY 08/29/23 08/29/23 release rosuvastatin 20 mg tablet 20 mg PO HS 08/29/23 08/29/23 Previous Rx's Medication Instructions Recorded aspirin 81 mg tablet,delayed 81 mg PO DAILY #100 tabs 04/26/23 release Allergies Allergy/AdvReac Type Severity Reaction Status Date / Time Iodinated Contrast Media Allergy Verified 08/29/23 16:03 [facility] Disclaimer: The information contained in this section may have been updated after the patient was seen, as this information can be updated by other users. Medical History On mechanically assisted ventilation Anaphylactic shock CAD (coronary artery disease) Abnormal ankle brachial index (KAY) Claudication History of umbilical hernia Splenic infarct GERD (gastroesophageal reflux disease) Hypothyroid Cervical cancer Anal cancer Surgical History History of hernia surgery History of rectal surgery History of hysterectomy History of cholecystectomy Family History Brother Colon cancer Other Family history of cardiac arrest Social History Smoking Status: Current every day smoker tobacco type: cigarettes alcohol intake: never substance use type: denies use current occupational status: unemployed Travel in the last 8 weeks: None caffeine: Yes ROS Obtained: Yes unobtainable due to mental status Physical Exam General General appearance: obtunded Comment: GCS of 3 with agonal respirations, perioral cyanosis Head Head exam: atraumatic and normocephalic Eye Eye exam: Present normal appearance and PERRL ENT ENT exam: Present normal oropharynx and other (Cyanotic) Neck Neck exam: Present normal inspection and full ROM Chest Chest inspection: Present normal inspection and symmetric chest wall rise Respiratory Respiratory exam: Present other (Agonal respirations. Diminished breath sounds bilaterally.) Cardiovascular Cardiovascular exam: Present normal rhythm and tachycardia Abdominal Exam Abdominal exam: Present soft; Absent distention Extremities Exam Extremities exam: Present other (Peripheral cyanosis) Back Exam Back exam: Present normal inspection Neurological Exam Neurological exam: Absent alert Expanded Neurological Exam Coma scale eye opening: None Coma scale motor response: None Coma scale verbal response: None Coma scale total: 3 Skin Skin exam: Present rash (Erythematous rash covering most of the body with peripheral cyanosis) and cyanosis Medical Decision Making Medical Records Medical records reviewed: Yes I reviewed the patient's medical records. Carlos Alberto Inquiry Pt receiving controlled substance: No Vital Signs: 08/29/23 11:39 08/29/23 11:40 08/29/23 12:30 Temperature Pulse Rate 129 H Pulse Rate [Left Radial] 131 H Respiratory Rate 28 H 29 H 24 Blood Pressure 133/95 H Blood Pressure [Right Arm] 145/89 H Blood Pressure Mean Blood Pressure Mean [Right Arm] 107 02 Sat by Pulse Oximetry 95 97 94 L Oxygen Delivery Method Mechanical Ventilation Mechanical Ventilation 08/29/23 13:17 08/29/23 13:30 08/29/23 13:34 Temperature Pulse Rate 106 H 113 H 113 H Pulse Rate [Left Radial] Respiratory Rate 22 22 22 Blood Pressure 85/63 L 104/76 L 95/66 L Blood Pressure [Right Arm] Blood Pressure Mean Blood Pressure Mean [Right Arm] 02 Sat by Pulse Oximetry 92 L 98 99 Oxygen Delivery Method Mechanical Ventilation 08/29/23 14:15 08/29/23 14:18 08/29/23 14:22 Temperature Pulse Rate 107 H 108 H 104 H Pulse Rate [Left Radial] Respiratory Rate Blood Pressure 75/55 L 93/54 L 71/50 L Blood Pressure [Right Arm] Blood Pressure Mean 59 63 54 Blood Pressure Mean [Right Arm] 02 Sat by Pulse Oximetry 98 99 99 Oxygen Delivery Method Mechanical Ventilation Mechanical Ventilation Mechanical Ventilation 08/29/23 14:24 08/29/23 14:48 Temperature 97.9 F Pulse Rate 104 H 104 H Pulse Rate [Left Radial] Respiratory Rate 20 Blood Pressure 70/51 L 70/51 L Blood Pressure [Right Arm] Blood Pressure Mean 55 Blood Pressure Mean [Right Arm] 02 Sat by Pulse Oximetry 98 Oxygen Delivery Method Mechanical Ventilation Mechanical Ventilation Lab Data Lab Results 08/29/23 12:02: Urine Color Yellow, Urine Appearance Clear, Urine pH 6.5, Ur Specific [place] <= 1.005, Urine Protein Negative, Urine Glucose (UA) Negative, Urine Ketones Negative, Urine Blood Negative, Urine Nitrate Negative, Urine Bilirubin Negative, Urine Urobilinogen 1.0, Ur Leukocyte Esterase Negative, Urine RBC None, Urine WBC None, Ur Squamous Epith Cells Occasional, Urine Bacteria Trace 08/29/23 12:13: Specimen Source [place], O2 % 100, ABG pH 7.03 L*, ABG pCO2 62.8 H, ABG pO2 369.7 H, ABG HCO3 16.0 L, ABG Total CO2 18.0 L, ABG O2 Saturation 100, ABG Base Excess -14.8 L, Taj Test N/a, Vent Rate 20, Tidal Volume 400, PEEP 5 08/29/23 12:21: WBC 29.3 H*, RBC 5.25, Hgb 16.4 H, Hct 52.3 H, MCV 99.6 H, MCH 31.3 H, MCHC 31.4 L, RDW 15.0, Plt Count 369, MPV 9.2, Neut % (Auto) 61.8, Lymph % (Auto) 32.3, Power % (Auto) 2.7, Eos % (Auto) 1.2, Baso % (Auto) 2.1 H, Neut # (Auto) 18.1 H, Lymph # (Auto) 9.4 H, Power # (Auto) 0.8, Eos # (Auto) 0.4, Baso # (Auto) 0.6 H, Total Counted 100, Neutrophils % (Manual) 42, Band Neutrophils % 8.0, Lymphocytes % (Manual) 43, Monocytes % (Manual) 5, Eosinophils % (Manual) 2, Platelet Estimate Normal, RBC Morphology Normal, Lactate 5.2 H, Troponin I 0.02 08/29/23 12:50: PT 12.3, INR 1.15 H, APTT 26.2, Sodium 141, Potassium 2.7 L*, Chloride 112 H, Carbon Dioxide 18 L, Anion Gap 13.7, BUN 6 L, Creatinine 0.90, Estimated Creat Clear 79, Estimated GFR 65, Est GFR ( Amer) 79, Glucose 236 H, Calcium 7.5 L, Phosphorus 4.5, Magnesium 1.6, Total Bilirubin 0.4, AST 40 H, ALT 28, Alkaline Phosphatase 80, Total Protein 5.5 L, Albumin 3.0 L, Globulin 2.5, Albumin/Globulin Ratio 1.2 08/29/23 12:21 08/29/23 12:50 Orders (Tests/Meds): ED MEDICATIONS Generic Name Dose Route Start Last Admin Trade Name Freq PRN Reason Stop Dose Admin Acetaminophen 650 mg 08/29/23 13:35 Acetaminophen 325mg Tab PO 09/28/23 13:34 Q4HP PRN Fever or Mild Pain (1-3) Albuterol/Ipratropium 3 ml 08/29/23 18:00 Ipratropium/Albuterol 3 Ml Neb IH 09/28/23 17:59 Q4RT GENESIS Fentanyl Citrate 12.5 mcg 08/29/23 14:44 Fentanyl 100mcg/2ml Vial IV 09/28/23 14:43 [id number] PRN Achieve CPOT Score < 3 Heparin Sodium (Porcine) 5,000 unit 08/29/23 13:45 Heparin Sodium 5,000 Unit/Ml Vial SQ 09/28/23 13:44 Q8H GENESIS Lactated Ringer's 1,000 mls @ 125 mls/hr 08/29/23 13:15 Lactated Ringer's 1000 Ml Bag IV 09/28/23 13:14 .Q8H GENESIS Epinephrine HCl 5 mg/ Sodium 255 mls @ 91.8 mls/hr 08/29/23 14:30 08/29/23 11:45 Chloride IV 09/28/23 14:29 30 mcg/min .[id number] GENESIS 91.8 mls/hr Administration Protocol 30 MCG/MIN Ceftriaxone Sodium 2 gm/ 100 mls @ 200 mls/hr 08/29/23 14:45 Sodium Chloride IV 09/08/23 14:44 Q24H GENESIS Doxycycline Hyclate 100 mg/ 250 mls @ 166.667 mls/hr 08/29/23 14:45 Sodium Chloride IV 09/08/23 14:44 Q12H GENESIS Norepinephrine/Dextrose 8 mg in 250 mls @ 15 mls/hr 08/29/23 14:39 08/29/23 11:45 Norepinephrine 8mg/250ml-D5w Premix IV 09/28/23 14:38 8 mcg/min .[id number] GENESIS 15 mls/hr Administration Protocol 8 MCG/MIN Vasopressin 40 unit/ Sodium 102 mls @ 6.12 mls/hr 08/29/23 14:40 Chloride IV 09/28/23 14:39 .[id number] GENESIS Protocol 0.04 UNITS/MIN Fentanyl Citrate 1,000 mcg/ 100 mls @ 7.5 mls/hr 08/29/23 14:41 08/29/23 11:54 Sodium Chloride IV 09/28/23 14:40 75 mcg/hr .[id number] GENESIS 7.5 mls/hr Administration Protocol 75 MCG/HR Propofol 100 mls @ 2.1 mls/hr 08/29/23 15:00 Diprivan 10mg/Ml 100ml Bottle IV 09/28/23 14:59 .Q24H GENESIS Protocol 5 MCG/KG/MIN Midazolam/Sodium Chloride 50 mg in 50 mls @ 1.4 mls/hr 08/29/23 11:52 08/29/23 11:52 Midazolam 50 Mg/50 Ml-0.9%Nacl IV 09/28/23 11:51 0.02 mg/kg/hr .Q24H GENESIS 1.4 mls/hr Administration Protocol 0.02 MG/KG/HR Methylprednisolone Sodium Succinate 80 mg 08/29/23 14:45 Methylprednisolone Sod Succ 40mg Vial IV 09/28/23 14:44 DAILY GENESIS Ondansetron HCl 4 mg 08/29/23 13:35 Ondansetron 4mg/2ml Vial IV 09/28/23 13:34 Q8HP PRN Nausea Sodium Chloride 10 ml 08/29/23 12:15 Sodium Chloride 0.9% 10ml Flush Syringe IV 09/28/23 12:14 NEEDED PRN Maintain IV Site Discontinued Medications Generic Name Dose Route Start Last Admin Trade Name Freq PRN Reason Stop Dose Admin Epinephrine HCl 0.1 mg 08/29/23 13:46 08/29/23 11:44 Epinephrine 0.1 Mg/Ml 10ml Syringe (Crash Cart) IV 08/29/23 13:47 0.1 mg ONCE ONE Administration ORDERS Category Date Time Status CT head/brain wo con Stat Cat Scan 08/29/23 12:15 Taken XR chest portable Stat Exams 08/29/23 12:13 Completed XR chest portable Stat Exams 08/29/23 12:18 Taken Activated Partial Thrombo Time Stat Lab 08/29/23 12:50 Completed Complete Blood Count Auto Diff Stat Lab 08/29/23 12:21 Completed Comprehensive Metabolic Panel Stat Lab 08/29/23 12:50 Completed Lactic Acid Stat Lab 08/29/23 12:21 Completed Magnesium Stat Lab 08/29/23 12:50 Completed Phosphorous Stat Lab 08/29/23 12:50 Completed Prothrombin Time INR Stat Lab 08/29/23 12:50 Completed Troponin I Q3H Lab 08/29/23 15:29 Received Troponin I Q3H Lab 08/29/23 18:30 Ordered Troponin I Stat Lab 08/29/23 12:21 Completed Urinalysis and Microscopic Stat Lab 08/29/23 12:02 Completed Blood Culture Stat Micro 08/29/23 12:50 Received Sputum Culture & Gram Stain Stat Micro 08/29/23 11:45 Results ABG [Arterial Blood Gas] Stat RT 08/29/23 12:13 Completed ECG Data Tracing #1: I reviewed this ECG and interpreted as documented below: Sinus tachycardia with a ventricular rate of [address] changes concerning for ischemia. Nonspecific ST/T changes. ECG initial impression date: 08/29/23 ECG initial impression time: 11:41 Medical Decision Narrative: In summary, this patient is a 53-year-old female presenting to the Emergency Department for evaluation of acute distress after receiving IV contrast upstairs on CT table. Differential diagnoses considered include but are not limited to anaphylactic reaction, CVA, PE, ACS, dysrhythmia, pulmonary edema. Ruling out the most morbid conditions drove assessment. It should be noted patient's history includes COPD, CAD, hypertension, hypothyroidism, hyperlipidemia, IBS, chronic abdominal pain which may or may not be at goal therapy. This complicates all aspects of care by increasing patient's risk for morbidity. I reviewed patient's past medical records and noted previous evaluations as an outpatient for abdominal pain in the past. I initially arrived upstairs to find the patient in acute distress with agonal respirations, cyanosis, and erythematous rash. She was tachycardic, hypotensive, and had hypoxia on monitor. Patient was emergently given 0.3 mg of IM epinephrine, with a subsequent redosed. She was also given IV Benadryl, IV Solu-Cortef, and a pressure bag of IV fluids was hung. Intubation medications were prepped including etomidate and succinylcholine, and the patient was assisted with [id number] ventilation until intubation was able to be performed. I indicated the patient successfully with 1 attempt with a 7 and half ET tube with video-assisted laryngoscope. She tolerated this well. We emergently rolled the patient down to the ED, at which point resuscitation continued with push dose epinephrine until we have an epi drip ready and available to hang. Sedation was initiated with IV Versed and fentanyl. Later propofol was added once the pressure had stabilized on an epinephrine drip. Second liter bolus of IV fluids was pressure bagged in for a total of 2 L, and maintenance IV fluids were then initiated. Stat chest x-ray was obtained and did not demonstrate any acute focal consolidation, edema, or other concerns. Satisfactory ET tube placement. Labs were obtained that demonstrated significant lactic and respiratory acidosis as well as leukocytosis of nearly 30. Lactic acid on lab evaluation was 5.2. I feel this is likely secondary to the fact that the patient having prolonged hypoxia and hypotension. Patient is stabilized on an epinephrine drip and sedation was maintained well with fentanyl, Versed, and propofol. A third L bolus of IV fluids was then given. Stat CT head without contrast was obtained and on my independent interpretation did not demonstrate any large hemorrhage or artifact. EKG was obtained that demonstrated sinus tachycardia without acute ST changes concerning for STEMI. Based on blood glass that was obtained demonstrated respiratory acidosis, vent settings were adjusted to increased respiratory rate, tidal volume, and also lower FiO2. Patient required extensive one-on-one critical care time and attention for titration of drips including epinephrine and sedation, management of ventilator settings, and critical illness. Ultimately, the patient requires admission for what is likely respiratory failure and anaphylactic shock to IV contrast administered for CT scan as an outpatient. I had an interactive discussion with the adjunct lecturer, Dr. Potter, as well as the hospitalist who admitted the patient for further evaluation and management. I kept family up-to-date with regards to findings and plan of care. Procedures Intubation Time out performed: Yes sedative: Etomidate Mg Given: 30 paralytic: Succinylcholine Mg Given: 100 Laryngoscope: Vinny ET Tube Size: 3 Tube Secured Depth (cm): 23 Tube Secured Location: teeth Tube Placement Confirmation: visualized tube passing through cords, equal breath sounds bilaterally, no breath sounds over epigastrium and confirmation by capnometry Patient Tolerated Procedure: well and no complications Intubation Complications: none Arterial Line Time Out Performed: Yes Size (Gauge): 20 Technique Used: guide wire technique Post-Procedure: line sutured into place and dry sterile dressing placed Patient Tolerated Procedure: well and no complications Complications: none Site: right and radial Critical Care Critical Care Time Critical Care Time: Yes (75) Attestation: On 08/29/23, the high probability of a clinically significant, sudden or life threatening deterioration of the following system(s) required my full and direct attention, intervention and personal management. The time I documented below is in addition to time spent performing reported procedures but includes the following listed in this critical care notation. Total Time Total Critical Care Time: 75
[2023-08-29 14:07] LABS: Potassium 2.7 mmoL/L (3.5-5.1)
[2023-08-29 14:08] LABS: Eosinophils % 2 % (0-3); Lymphocytes % 43 % (10-50); Monocytes % 5 % (2-9); Neutrophils % 42 % (42-76); Total Cells Counted 100
[2023-08-29 14:11] LABS: Bacteria,Urine Trace /lpf; Squamous Epithelial Cell,Urine Occasional #/hpf (0-5)
--- NOTE | 2023-08-29 14:11 | PC.NURSE ---
Holly in LAB called critical potassium of 2.[address] Zamarripa notified.
[2023-08-29 14:13] LABS: Platelet Estimate Normal; RBC Morphology Normal
--- NOTE | 2023-08-29 14:28 | PC.NURSE ---
arrived by stretcher from ED
--- NOTE | 2023-08-29 14:31 | EXP.PULM.CON ---
History of Present Illness History of present illness: Much of the history is obtained from chart review. Patient intubated and sedated. Ms. Huang is a 53-year-old female presented to the hospital for an elective CT abdomen with contrast immediately followed by anaphylactic shock needing intubation mechanical ventilatory support and vasopressor support and pulmonary was called for further evaluation management. Family at bedside discussed patient at her baseline normal this morning prior to presentation for her CT imaging. [facility] Disclaimer: The information contained in this section may have been updated after the patient was seen, as this information can be updated by other users. Medical History (Updated 08/29/23 @ 14:31 by Yuri Potter MD) On mechanically assisted ventilation Anaphylactic shock CAD (coronary artery disease) Abnormal ankle brachial index (KAY) Claudication History of umbilical hernia Splenic infarct GERD (gastroesophageal reflux disease) Hypothyroid Cervical cancer Anal cancer Surgical History History of hernia surgery History of rectal surgery History of hysterectomy History of cholecystectomy Family History Brother Colon cancer Other Family history of cardiac arrest Social History Smoking Status: Current every day smoker tobacco type: cigarettes alcohol intake: never substance use type: denies use current occupational status: unemployed Travel in the last 8 weeks: None caffeine: Yes Review of Systems Review of Systems Review of systems:: unable to obtain Review of systems (narrative): Intubated and sedated Pulmonology Exam Inpatient Vital signs and Labs for Last 24 Hours: Pulse Resp BP Pulse Ox O2 Del Method 104 H 22 70/51 L 98 Mechanical Ventilation 08/29/23 14:24 08/29/23 13:34 08/29/23 14:24 08/29/23 14:24 08/29/23 14:24 Laboratory Results - last 24 hr 08/29/23 12:02: Urine Color Yellow, Urine Appearance Clear, Urine pH 6.5, Ur Specific [place] <= 1.005, Urine Protein Negative, Urine Glucose (UA) Negative, Urine Ketones Negative, Urine Blood Negative, Urine Nitrate Negative, Urine Bilirubin Negative, Urine Urobilinogen 1.0, Ur Leukocyte Esterase Negative, Urine RBC None, Urine WBC None, Ur Squamous Epith Cells Occasional, Urine Bacteria Trace 08/29/23 12:13: Specimen Source Karen, O2 % 100, ABG pH 7.03 L*, ABG pCO2 62.8 H, ABG pO2 369.7 H, ABG HCO3 16.0 L, ABG Total CO2 18.0 L, ABG O2 Saturation 100, ABG Base Excess -14.8 L, Taj Test N/a, Vent Rate 20, Tidal Volume 400, PEEP 5 08/29/23 12:21: WBC 29.3 H*, RBC 5.25, Hgb 16.4 H, Hct 52.3 H, MCV 99.6 H, MCH 31.3 H, MCHC 31.4 L, RDW 15.0, Plt Count 369, MPV 9.2, Neut % (Auto) 61.8, Lymph % (Auto) 32.3, [place] % (Auto) 2.7, Eos % (Auto) 1.2, Baso % (Auto) 2.1 H, Neut # (Auto) 18.1 H, Lymph # (Auto) 9.4 H, [place] # (Auto) 0.8, Eos # (Auto) 0.4, Baso # (Auto) 0.6 H, Total Counted 100, Neutrophils % (Manual) 42, Band Neutrophils % 8.0, Lymphocytes % (Manual) 43, Monocytes % (Manual) 5, Eosinophils % (Manual) 2, Platelet Estimate Normal, RBC Morphology Normal, Lactate 5.2 H 08/29/23 12:50: PT 12.3, INR 1.15 H, APTT 26.2, Sodium 141, Potassium 2.7 L*, Chloride 112 H, Carbon Dioxide 18 L, Anion Gap 13.7, BUN 6 L, Creatinine 0.90, Estimated Creat Clear 79, Estimated GFR 65, Est GFR ( Amer) 79, Glucose 236 H, Calcium 7.5 L, Phosphorus 4.5, Magnesium 1.6, Total Bilirubin 0.4, AST 40 H, ALT 28, Alkaline Phosphatase 80, Total Protein 5.5 L, Albumin 3.0 L, Globulin 2.5, Albumin/Globulin Ratio 1.2 I & O for Labs for Last 24 Hours: Intake & Output 08/26/23 08/27/23 08/28/23 08/29/23 23:59 23:59 23:59 23:59 Weight 154 lb 5.177 oz Constitutional: Present severe distress Comment:: Intubated and Sedated Head: Present normocephalic and atraumatic Neck: Present normal inspection and trachea midline Respiratory: Present patient mechanically ventilated, prolonged expiratory phase, rhonchi and wheezes Cardiac: Present S1/S2 and Tachycardia GI: Present soft; Absent distention or tenderness Skin: Present intact; Absent cyanosis Neuro: Absent alert, awake or oriented x 3 Comment:: Intubated and sedated Extremities: Present normal inspection; Absent clubbing or cyanosis Psychiatric: Present unable to assess Meds Home Medications and Allergies Home Medications Medication Instructions Recorded Confirmed Type aspirin 81 mg tablet,delayed 81 mg PO DAILY #100 tabs 04/26/23 08/29/23 Rx release dicyclomine 20 mg tablet 20 mg PO TIDP PRN abdominal pain 08/29/23 08/29/23 History evolocumab 140 mg/mL subcutaneous 140 mg SQ .[id number] 08/29/23 08/29/23 History pen injector (Tim Rivera) fluticasone propionate 50 2 spray intranasal DAILYP PRN 08/29/23 08/29/23 History mcg/actuation nasal nasal congestion spray,suspension nitroglycerin 0.4 mg sublingual 0.4 mg sublingual Q5MINP PRN chest 08/29/23 08/29/23 History tablet pain omeprazole 20 mg capsule,delayed 20 mg PO DAILY 08/29/23 08/29/23 History release rosuvastatin 20 mg tablet 20 mg PO HS 08/29/23 08/29/23 History New Prescriptions to Start Prescriptions: Allergies Allergy/AdvReac Type Severity Reaction Status Date / Time No Known Allergies Allergy Verified 08/09/23 10:11 Results Laboratory Findings 08/29/23 12:21 08/29/23 12:50 ABG ABG pH 7.03 mmol/L (7.35-7.45) L* 08/29/23 12:13 ABG pCO2 62.8 mmhg (35.0-45.0) H 08/29/23 12:13 ABG pO2 369.7 mmhg (80-100) H 08/29/23 12:13 ABG O2 Saturation 100 % (90-100) 08/29/23 12:13 PT/INR, D-dimer PT 12.3 seconds (10.1-12.5) 08/29/23 12:50 INR 1.15 (0.9-1.1) H 08/29/23 12:50 Abnormal lab findings: Abnormal Labs 08/29/23 08/29/23 08/29/23 12:13 12:21 12:50 WBC 29.3 H* Hgb 16.4 H Hct 52.3 H MCV 99.6 H MCH 31.3 H MCHC 31.4 L Baso % (Auto) 2.1 H Neut # (Auto) 18.1 H Lymph # (Auto) 9.4 H Baso # (Auto) 0.6 H INR 1.15 H ABG pH 7.03 L* ABG pCO2 62.8 H ABG pO2 369.7 H ABG HCO3 16.0 L ABG Total CO2 18.0 L ABG Base Excess -14.8 L Potassium 2.7 L* Chloride 112 H Carbon Dioxide 18 L BUN 6 L Glucose 236 H Lactate 5.2 H Calcium 7.5 L AST 40 H Total Protein 5.5 L Albumin 3.0 L Assessment and Plan *Assessment and plan (1) Anaphylactic shock: Status: Acute Category: Medical Code(s): T78.2XXA - Anaphylactic shock, unspecified, initial encounter (2) On mechanically assisted ventilation: Status: Acute Category: Medical Code(s): Z99.11 - Dependence on respirator [ventilator] status Plan Much of the history is obtained from chart review. Patient intubated and sedated. Ms. Haung is a 53-year-old female presented to the hospital for an elective CT abdomen with contrast immediately followed by anaphylactic shock needing intubation mechanical ventilatory support and vasopressor support and pulmonary was called for further evaluation management. Family at bedside discussed patient at her baseline normal this morning prior to presentation for her CT imaging. Reflect prominent leukocytosis. CT abdomen from today unremarkable except for hepatomegaly and fatty liver. Slight elevation of AST but ALT and alk phos within normal limits. Chest x-ray no dense consolidation or airspace disease. Plan: Continue propofol and fentanyl for sedation. Mechanical ventilator support, currently on PEEP 5 FiO2 50% rate of 22 and tidal volume of 420. ABG hypercarbic respiratory failure and metabolic acidosis. Follow with repeat ABG. DuoNebs every 4 hours scheduled Shock likely from anaphylaxis. Lexiscan from 2021 within normal limits. Continue epinephrine, vasopressin and norepinephrine to maintain a MAP goal of greater than 65. Methylprednisolone 80 every 24 hours Continue ceftriaxone and doxycycline Follow with blood and tracheal aspirate culture. Flu and COVID-19 PCR panel ET tube 1 cm above jessenia, will retract back by 2 cm Abdomen soft nondistended. Will hold off on initiating tube feeds at this point of time. Renally dose medications. Monitor urine output. - Continue mechanical ventilatory support - Continue AnalgoSedation with Propofol and Fentanyl with CPOT gal less than or euqal to 2 and RASS goal of to 2 (No need for deep sedation) - VAP bundle Recommend elevate head of the bed at 30 to 45 degrees Recommend oral care with chlorhexidne Recommend GI ulcer prophylaxis - Famotidine 20mg IV BID Recommend chemical DVT prophylaxis Total critical care time spent on this patient is 35 minutes managing acute hypoxic respiratory failure needing mechanical ventilation. This time spent include reviewing test results including interpreting chest x-rays, labs and arterial blood gas, optimizing the ventilator settings,formulating plan of care, discussing the plan of care with the team and the nursing staff.
[2023-08-29 14:42] LABS: Troponin I 0.02 ng/ml (0.00-0.034)
[2023-08-29] MEDS: propofoL 100 ML 2.10000000000000009 MG IV (15:00)
[2023-08-29 15:07] LABS: ABG Base Excess -12.5 mmol/L (-2.4-2.3); ABG HCO3 16.3 mmhg (22.0-26.0); ABG Oxygen Saturation 92 % (90-100); ABG PO2 70.5 mmhg (80-100); ABG TCO2 17.8 mmhg (23-27); Oxygen 40 %; PEEP 5; Tidal Volume 420; Vent Rate 25
[2023-08-29 15:08] LABS: ABG PH 7.15 mmol/L (7.35-7.45); Allen's Test Patient Unable; Source A LINE
--- NOTE | 2023-08-29 15:53 | PC.NURSE ---
[address] called [address] spoke [address] Dr Potter. notified that pt was on 30mcg of epinephrine and pressures were currently in the 70's on artline. md gave verbal orders for pt to be placed on vasopressin drip and levophed drip. [address] Potter face to face that pt was able to be stabilized on epi drip, which is currently at 10mcg. states that if other drips are needed start vaso drip, once maxed start pt on levo drip.
--- NOTE | 2023-08-29 16:28 | P.HP_ITS ---
History of Present Illness *Admission Date: 08/29/23 *Reason for visit:: shock *History of present illness: Patient is a 53-year-old female with past medical history of CAD, back pain, rectal cancer, GERD, CAD who was admitted to the hospital after anaphylactic reaction from contrast. Reportedly patient was having CT scan of abdomen and was noted to have low BP, change in mental status after contrast injection, rapid response was called, patient was intubated and admitted to hospital for further management. Patient was having CT abdomen with contrast for for screening pancreatic cancer, chronic abdominal pain according to patient's at the bedside [facility] Disclaimer: The information contained in this section may have been updated after the patient was seen, as this information can be updated by other users. Medical History (Updated 08/29/23 @ 16:15 by Ivy Coronado RN) COPD (chronic obstructive pulmonary disease) On mechanically assisted ventilation Anaphylactic shock CAD (coronary artery disease) Abnormal ankle brachial index (KAY) Claudication History of umbilical hernia Splenic infarct GERD (gastroesophageal reflux disease) Hypothyroid Cervical cancer Anal cancer Surgical History History of hernia surgery History of rectal surgery History of hysterectomy History of cholecystectomy Family History (Updated 08/29/23 @ 16:15 by Ivy Coronado RN) Brother Colon cancer Other Alzheimer disease CKD (chronic kidney disease) Coronary artery disease Diabetes Family history of cardiac arrest Liver disease Social History (Updated 08/29/23 @ 16:15 by Ivy Coronado RN) Smoking Status: Current every day smoker tobacco type: cigarettes alcohol intake: never substance use type: denies use current occupational status: unemployed Travel in the last 8 weeks: None caffeine: Yes Review of Systems Review of Systems Review of systems:: unable to obtain Meds Home Medications and Allergies Home Medications Medication Instructions Recorded Confirmed Type aspirin 81 mg tablet,delayed 81 mg PO DAILY #100 tabs 04/26/23 08/29/23 Rx release dicyclomine 20 mg tablet 20 mg PO TIDP PRN abdominal pain 08/29/23 08/29/23 History evolocumab 140 mg/mL subcutaneous 140 mg SQ .[id number] 08/29/23 08/29/23 History pen injector (Tim Rivera) fluticasone propionate 50 2 spray intranasal DAILYP PRN 08/29/23 08/29/23 History mcg/actuation nasal nasal congestion spray,suspension nitroglycerin 0.4 mg sublingual 0.4 mg sublingual Q5MINP PRN chest 08/29/23 08/29/23 History tablet pain omeprazole 20 mg capsule,delayed 20 mg PO DAILY 08/29/23 08/29/23 History release rosuvastatin 20 mg tablet 20 mg PO HS 08/29/23 08/29/23 History New Prescriptions to Start Prescriptions: Allergies Allergy/AdvReac Type Severity Reaction Status Date / Time Iodinated Contrast Media Allergy Verified 08/29/23 16:03 Exam Data for Last 24 hours Vital signs and Labs for Last 24 Hours: Temp Pulse Resp BP Pulse Ox O2 Del Method FiO2 97.0 F L 104 H 26 H 70/51 L 98 Mechanical Ventilation 40 08/29/23 15:49 08/29/23 14:48 08/29/23 15:20 08/29/23 14:48 08/29/23 15:20 08/29/23 14:48 08/29/23 15:20 Laboratory Results - last 24 hr 08/29/23 12:02: Urine Color Yellow, Urine Appearance Clear, Urine pH 6.5, Ur Specific [place] <= 1.005, Urine Protein Negative, Urine Glucose (UA) Negative, Urine Ketones Negative, Urine Blood Negative, Urine Nitrate Negative, Urine Bilirubin Negative, Urine Urobilinogen 1.0, Ur Leukocyte Esterase Negative, Urine RBC None, Urine WBC None, Ur Squamous Epith Cells Occasional, Urine Bacteria Trace 08/29/23 12:13: Specimen Source Karen, O2 % 100, ABG pH 7.03 L*, ABG pCO2 62.8 H , ABG pO2 369.7 H, ABG HCO3 16.0 L, ABG Total CO2 18.0 L, ABG O2 Saturation 100, ABG Base Excess -14.8 L, Taj Test N/a, Vent Rate 20, Tidal Volume 400, PEEP 5 08/29/23 12:21: WBC 29.3 H*, RBC 5.25, Hgb 16.4 H, Hct 52.3 H, MCV 99.6 H, MCH 31.3 H, MCHC 31.4 L, RDW 15.0, Plt Count 369, MPV 9.2, Neut % (Auto) 61.8, Lymph % (Auto) 32.3, [place] % (Auto) 2.7, Eos % (Auto) 1.2, Baso % (Auto) 2.1 H, Neut # (Auto) 18.1 H, Lymph # (Auto) 9.4 H, [place] # (Auto) 0.8, Eos # (Auto) 0.4, Baso # (Auto) 0.6 H, Total Counted 100, Neutrophils % (Manual) 42, Band Neutrophils % 8.0, Lymphocytes % (Manual) 43, Monocytes % (Manual) 5, Eosinophils % (Manual) 2, Platelet Estimate Normal, RBC Morphology Normal, Lactate 5.2 H, Troponin I 0.02 08/29/23 12:50: PT 12.3, INR 1.15 H, APTT 26.2, Sodium 141, Potassium 2.7 L*, Chloride 112 H, Carbon Dioxide 18 L, Anion Gap 13.7, BUN 6 L, Creatinine 0.90, Estimated Creat Clear 79, Estimated GFR 65, Est GFR ( Amer) 79, Glucose 236 H, Calcium 7.5 L, Phosphorus 4.5, Magnesium 1.6, Total Bilirubin 0.4, AST 40 H, ALT 28, Alkaline Phosphatase 80, Total Protein 5.5 L, Albumin 3.0 L, Globulin 2.5, Albumin/Globulin Ratio 1.2 08/29/23 15:04: Specimen Source A line, O2 % 40, ABG pH 7.15 L*, ABG pCO2 48.0 H , ABG pO2 70.5 L, ABG HCO3 16.3 L, ABG Total CO2 17.8 L, ABG O2 Saturation 92, ABG Base Excess -12.5 L, Taj Test Patient unable, Vent Rate 25, Tidal Volume 420, PEEP 5 I & O for Last 24 hours: Intake & Output 08/26/23 08/27/23 08/28/23 08/29/23 23:59 23:59 23:59 23:59 Weight 76.2 kg Microbiology Reports for the Last 24 Hours: Microbiology 08/29/23 11:45 Sputum - Endotracheal Tube Aspirate Gram Stain - Final Constitutional Comments: intubated and sedated *Routine HEENT Exam Head: Present normocephalic Eye: Present EOMI and PERRL ENT: Present mucous membranes moist *Routine Neck Exam Neck: Present supple; Absent lymphadenopathy *Routine Respiratory Exam Respiratory: Present CTA bilaterally *Routine Cardiovascular Exam Cardiovascular: Present RRR *Routine Abdominal Exam Abdominal: Present soft and normoactive bowel sounds; Absent tenderness *Routine Rectal Exam Rectal:: deferred *Routine Genitalia Exam Genitalia:: deferred *Routine Extremities Exam Extremities: Absent cyanosis, clubbing or edema *Routine Skin Exam Skin: Present warm; Absent rash *Routine Neurological Exam Comments: intubated and sedated Assessment and Plan *Assessment and plan (1) Acidosis, lactic: Status: Acute Category: Medical Code(s): E87.20 - Acidosis, unspecified (2) Acute hypoxic respiratory failure: Status: Acute Category: Medical Code(s): J96.01 - Acute respiratory failure with hypoxia (3) Anaphylactic shock: Status: Acute Category: Medical Code(s): T78.2XXA - Anaphylactic shock, unspecified, initial encounter (4) CAD (coronary artery disease): Status: Acute Category: Medical Code(s): I25.10 - Atherosclerotic heart disease of [place] coronary artery without angina pectoris (5) Anal cancer: Status: Acute Category: Medical Code(s): C21.0 - Malignant neoplasm of anus, unspecified Plan Assessment and plan Shock likely anaphylactic shock Patient is started on epinephrine vasopressin Start IV Solu-Medrol Started on Rocephin, doxycycline Patient is intubated and sedated Ventilator dependent respiratory failure Patient is intubated and sedated Consult pulmonary DuoNebs every 4 hours Monitor blood gas Patient is currently on propofol, fentanyl hypokalemia monitor and replace K level check Mg leukocytosis likely reactive - continue empirical Abx with rocephin and doxycyclin DVT prophylaxis-heparin Pepcid 20 IV twice daily for ulcer prophylaxis N.p.o. for now
[2023-08-29 16:29] LABS: Reflex Lactic Add Lactic Reflex
[2023-08-29] MEDS: CEFTRIAXONE SODIUM 2 GM in 0.9 % SODIUM CHLORIDE 100 ML IV (16:44)
[2023-08-29] MEDS: HEPARIN SODIUM 5,000 UNIT/ML VIAL 5000 UNIT SQ ×2 (16:53→20:44)
[2023-08-29] MEDS: LACTATED RINGERS 1000ML 1,000 ML 125 ML IV (16:53)
[2023-08-29] MEDS: METHYLPREDNISOLONE SOD SUCC 40MG VIAL 80 MG IV (16:57)
[2023-08-29 16:59] LABS: Troponin I 0.06 ng/ml (0.00-0.034)
[2023-08-29 17:27] LABS: Lactic Acid Follow Up (RFLX 1) 5.4 mmol/L (0.7-2.1)
[2023-08-29] MEDS: DOXYCYCLINE HYCLATE 100 MG in 0.9 % SODIUM CHLORIDE 250 ML 166.667000000000002 MG IV (17:37)
[2023-08-29 17:39] LABS: Adenovirus F 40/41, stool Not Detected (NotDetected); Astrovirus Not Detected (NotDetected); Campylobacter Not Detected (NotDetected); Clostridium Difficile A/B, PCR Not Detected (NotDetected); Cryptosporidium Not Detected (NotDetected); Cyclospora Cayetanesis Not Detected (NotDetected); Entamoeba histolytica Not Detected (NotDetected); Enteroaggregative E coli Not Detected (NotDetected); Enteropathogenic E coli Not Detected (NotDetected); Enterotoxigenic E coli Not Detected (NotDetected); Giardia lamblia Not Detected (NotDetected); Norovirus Not Detected (NotDetected); Plesimonas Shigalloides, PCR Not Detected (NotDetected); Rotavirus A Not Detected (NotDetected); Salmonella, PCR Not Detected (NotDetected); Sapovirus Not Detected (NotDetected); Shiga-like toxin E coli Not Detected (NotDetected); Shigella Enterovasive E coli Not Detected (NotDetected); Vibrio Cholerae Not Detected (NotDetected); Vibrio, PCR Not Detected (NotDetected); Yersinia Entercolitica, PCR Not Detected (NotDetected)
[2023-08-29 17:43] LABS: Coronavirus 19, PCR Not Detected (NotDetected); Influenza A, PCR Not Detected (NotDetected); Influenza B, PCR Not Detected (NotDetected)
[2023-08-29] MEDS: IPRATROPIUM/ALBUTEROL 3 ML NEB IH ×2 (18:08→21:40)
[2023-08-29 18:59] LABS: Reflex Lactic (2 hrs) Add Lactic Reflex
[2023-08-29 19:16] LABS: Troponin I 0.06 ng/ml (0.00-0.034)
--- NOTE | 2023-08-29 19:30 | PC.NURSE ---
Propofol @ 15mcg/kg/min at beginning of shift
[2023-08-29 19:45] LABS: Lactic Acid Follow up (RFLX 2) 7.3 mmol/L (0.7-2.1)
[2023-08-29] MEDS: KCl 10mEq/100ml 100 ML 100 MEQ IV ×3 (20:03→22:09)
[2023-08-29] MEDS: EPINEPHrine 5 MG in 0.9 % SODIUM CHLORIDE 250 ML 30.6000000000000014 MG IV (21:44)
--- NOTE | 2023-08-29 22:57 | PC.NURSE ---
Epinephrine gtt paused @ 2257. Pt current BP- 108/65
--- NOTE | 2023-08-29 23:42 | PC.NURSE ---
Epinephrine gtt reatrted @ 2mcg/min
[2023-08-30] VITALS (50 sets, daily range): BP systolic 81–139; BP diastolic 30–96; PULSE 62–126; RESP 9–24; TEMP 36.4–37.4; O2SAT 93–100; BMI 27.0
--- NOTE | 2023-08-30 00:36 | PC.NURSE ---
Propofol gtt increased @ 0036, due to agitation and CPOT of 4
[2023-08-30] MEDS: FENTANYL CITRATE/PF 1,000 MCG in 0.9 % SODIUM CHLORIDE 80 ML 8.5 MCG IV (01:17)
--- NOTE | 2023-08-30 01:29 | PC.NURSE ---
Wrong concentration mixed when preparing fentanyl gtt, did not remove 20 ml prior to mixing. Error caught by Skyler Myers RN. New correct concentration gtt prepared and hung. fentanyl verified and wasted @ 0128.
--- NOTE | 2023-08-30 01:34 | PC.NURSE ---
Epinephrine increased to 4 mcg at this time, BP- 88/58.
--- NOTE | 2023-08-30 01:35 | PC.NURSE ---
Epinephrine gtt increased to 4, BP- 88/58
[2023-08-30] MEDS: IPRATROPIUM/ALBUTEROL 3 ML NEB IH ×6 (02:17→21:09)
[2023-08-30] MEDS: propofoL 100 ML 10.5 MG IV ×2 (02:25→21:14)
[2023-08-30] MEDS: DOXYCYCLINE HYCLATE 100 MG in 0.9 % SODIUM CHLORIDE 250 ML 166.667000000000002 MG IV ×2 (03:09→14:32)
[2023-08-30] MEDS: HEPARIN SODIUM 5,000 UNIT/ML VIAL 5000 UNIT SQ ×3 (05:44→21:15)
[2023-08-30 06:04] LABS: Basophils # 0.2 K/mm3 (0-0.2); Basophils % 0.6 % (0.1-2.0); Eosinophils # 0.2 K/mm3 (0.0-0.4); Eosinophils % 0.7 % (0.1-12.0); Hematocrit 43.7 % (37.0-47.0); Lymphocytes # 1.5 K/mm3 (0.7-4.5); Lymphocytes % 6.7 % (10-50); Mean Corpuscular HGB Conc 32.1 g/dL (31.8-35.4); Mean Corpuscular Hemoglobin 31.3 pg (27.0-31.2); Mean Corpuscular Volume 97.5 fl (81-99); Mean Platelet Volume 8.6 fl (7.4-10.4); Monocytes # 0.6 K/mm3 (0.1-1.0); Monocytes % 2.7 % (1.7-9.3); Neutrophils # 20.5 K/mm3 (1.8-7.8); Neutrophils % 89.2 % (37.0-80.0); Platelet Count 179 K/mm3 (142-424); Red Blood Count 4.49 M/mm3 (4.20-5.40); Red Cell Distribution Width 15.2 % (11.5-17.5)
[2023-08-30 06:09] LABS: Hemoglobin 14.1 g/dL (12.2-16.2)
[2023-08-30 06:11] LABS: Anion Gap 13.2 mEq/L (5-15); Blood Urea Nitrogen 16 mg/dl (7-17); Carbon Dioxide 19 mmol/L (22.0-30.0); Chloride 112 mmol/L (98-107); Creatinine Clearance Estimated 70 mL/min (50-200); Estimated Glomerular Filt Rate 52 ml/min (>60); GFR (African American) 63 ML/MIN (>60); Glucose 157 mg/dl (74-100); MANUAL DIFFERENTIAL MANUAL DIFFERENTIAL (MANUAL DIFF); Potassium 4.2 mmoL/L (3.5-5.1); Sodium 140 mmol/L (136-145)
--- NOTE | 2023-08-30 06:26 | PC.NURSE ---
Pt open eyes and awakes to voice. CPOT currently 1. Current gtts: Epinephrine 2 mcg/min, Propofol 25 mcg/kg/min, Fentanyl 85 mcg/hr Current vent settings: Peep- 5, FiO2- 40%, TV- 440, RR- [address] @ 23 cm @ the teeth. NG Right nare in place @ 58 cm. (50 mL of green colored bile throughout this shift) Rodriguez remains in place with a total of 300 out with an average of 20 mL/hr ( made aware) Pt has been Q2 turned (Pt dose not tolerate her left side well), Oral care has been provided Q2 this shift and pt has tolerated well. Pt did get a bed bath, HOB elevated at 35 degrees, and heal elevated. remains at bedside. Call light is in reach.
--- NOTE | 2023-08-30 07:20 | XR_ITS ---
FINAL REPORT CLINICAL HISTORY: verify ett/ng tube COMPARISON: 08/29/2023 FINDINGS: A single view of the chest was obtained. There is mild cardiomegaly. The endotracheal tube tip is 2.5 cm superior to the jessenia. The nasogastric tube tip is in the stomach. Chronic changes are seen in the lung bases. The lungs are otherwise clear. There is no pleural effusion. There is no pneumothorax. There is no acute osseous abnormality. IMPRESSION: No acute cardiopulmonary process. Endotracheal tube tip lies 2.5 cm superior to the jessenia. Nasogastric tube tip is in the stomach. Reviewed, Interpreted and Dictated by Apolinar Sims MD Transcribed by Nica Frank Authenticated and [facility]
[2023-08-30 07:44] LABS: Lymphocytes % 8 % (10-50); Monocytes % 2 % (2-9); Neutrophils % 90 % (42-76); Platelet Estimate Normal; RBC Morphology Normal; Total Cells Counted 100
--- NOTE | 2023-08-30 07:57 | PC.WOUNDNOTE ---
skin assessment at start of shift
[2023-08-30] MEDS: METHYLPREDNISOLONE SOD SUCC 40MG VIAL 80 MG IV (08:46)
[2023-08-30] MEDS: LACTATED RINGERS 1000ML 1,000 ML 100 ML IV ×2 (09:11→21:14)
--- NOTE | 2023-08-30 09:15 | PC.NURSE ---
Addendum entered by Ivy Philip RN 08/30/23 11:30: sbt ended at 1115. abg collected from art line at 1122 by gladys philip rn Original Note: pt vent changed to spontaneous at 0915
--- NOTE | 2023-08-30 10:04 | P.PN_ITS ---
Subjective *Date: 08/30/23 *Time: 12:29 Interval history: No acute respiratory events overnight. Pulmonology Exam Inpatient Vital signs and Labs for Last 24 Hours: Temp Pulse Resp BP Pulse Ox O2 Del Method FiO2 99 F 106 H 12 118/68 97 Mechanical Ventilation 40 08/30/23 08:00 08/30/23 09:48 08/30/23 09:15 08/30/23 09:00 08/30/23 09:00 08/30/23 09:00 08/30/23 09:15 Laboratory Results - last 24 hr 08/29/23 12:02: Urine Color Yellow, Urine Appearance Clear, Urine pH 6.5, Ur Specific [place] <= 1.005, Urine Protein Negative, Urine Glucose (UA) Negative, Urine Ketones Negative, Urine Blood Negative, Urine Nitrate Negative, Urine Bilirubin Negative, Urine Urobilinogen 1.0, Ur Leukocyte Esterase Negative, Urine RBC None, Urine WBC None, Ur Squamous Epith Cells Occasional, Urine Bacteria Trace 08/29/23 12:13: Specimen Source Karen, O2 % 100, ABG pH 7.03 L*, ABG pCO2 62.8 H , ABG pO2 369.7 H, ABG HCO3 16.0 L, ABG Total CO2 18.0 L, ABG O2 Saturation 100, ABG Base Excess -14.8 L, Taj Test N/a, Vent Rate 20, Tidal Volume 400, PEEP 5 08/29/23 12:21: WBC 29.3 H*, RBC 5.25, Hgb 16.4 H, Hct 52.3 H, MCV 99.6 H, MCH 31.3 H, MCHC 31.4 L, RDW 15.0, Plt Count 369, MPV 9.2, Neut % (Auto) 61.8, Lymph % (Auto) 32.3, Campbell % (Auto) 2.7, Eos % (Auto) 1.2, Baso % (Auto) 2.1 H, Neut # (Auto) 18.1 H, Lymph # (Auto) 9.4 H, Campbell # (Auto) 0.8, Eos # (Auto) 0.4, Baso # (Auto) 0.6 H, Total Counted 100, Neutrophils % (Manual) 42, Band Neutrophils % 8.0, Lymphocytes % (Manual) 43, Monocytes % (Manual) 5, Eosinophils % (Manual) 2, Platelet Estimate Normal, RBC Morphology Normal, Lactate 5.2 H, Troponin I 0.02 08/29/23 12:50: PT 12.3, INR 1.15 H, APTT 26.2, Sodium 141, Potassium 2.7 L*, Chloride 112 H, Carbon Dioxide 18 L, Anion Gap 13.7, BUN 6 L, Creatinine 0.90, Estimated Creat Clear 79, Estimated GFR 65, Est GFR ( Amer) 79, Glucose 236 H, Calcium 7.5 L, Phosphorus 4.5, Magnesium 1.6, Total Bilirubin 0.4, AST 40 H, ALT 28, Alkaline Phosphatase 80, Total Protein 5.5 L, Albumin 3.0 L, Globulin 2.5, Albumin/Globulin Ratio 1.2 08/29/23 15:00: SARS-CoV-2 (PCR) Not detected, Influenza A Untype (PCR) Not detected, Influenza Type B (PCR) Not detected 08/29/23 15:04: Specimen Source A line, O2 % 40, ABG pH 7.15 L*, ABG pCO2 48.0 H , ABG pO2 70.5 L, ABG HCO3 16.3 L, ABG Total CO2 17.8 L, ABG O2 Saturation 92, ABG Base Excess -12.5 L, Taj Test Patient unable, Vent Rate 25, Tidal Volume 420, PEEP 5 08/29/23 15:05: Stl Aeromonas (PCR) Not detected, Stl C. cayetanensis PCR Not detected, Stool Rotavirus (PCR) Not detected, Stl Adenov F 40/41 PCR Not detected, Stool Astrovirus (PCR) Not detected, Stool Campylobacter PCR Not detected, Stl C.difficile Tox PCR Not detected, Stool Cryptosporidium PCR Not detected, Stl E.coli Shiga Tox PCR Not detected, Stool E coli O157 PCR Not detected, Stl Enterotoxigenic E PCR Not detected, Stool EPEC (PCR) Not detected, Stool EAEC (PCR) Not detected, Stl E. histolytica PCR Not detected, Stool Giardia Lamblia PCR Not detected, Stool Salmonella PCR Not detected, Stool Sapovirus (PCR) Not detected, Stl P. shigelloides PCR Not detected, Stl Shigella/EIEC PCR Not detected, St Y.enterocolitica PCR Not detected, Stool Vibrio (PCR) Not detected, Stl Vibrio cholerae PCR Not detected, Stl Norovirus GI/GII PCR Not detected 08/29/23 15:29: Troponin I 0.06 H 08/29/23 16:54: Lactate 5.4 H 08/29/23 18:38: Troponin I 0.06 H 08/29/23 19:26: Lactate 7.3 H 08/30/23 05:57: WBC 23.0 H*, RBC 4.49, Hgb 14.1 D, Hct 43.7, MCV 97.5, MCH 31.3 H, MCHC 32.1, RDW 15.2, Plt Count 179 D, MPV 8.6, Neut % (Auto) 89.2 H, Lymph % (Auto) 6.7 L, Campbell % (Auto) 2.7, Eos % (Auto) 0.7, Baso % (Auto) 0.6, Neut # (Auto) 20.5 H, Lymph # (Auto) 1.5, Campbell # (Auto) 0.6, Eos # (Auto) 0.2, Baso # (Auto) 0.2, Total Counted 100, Neutrophils % (Manual) 90 H, Lymphocytes % (Manual) 8 L, Monocytes % (Manual) 2, Platelet Estimate Normal, RBC Morphology Normal, Sodium 140, Potassium 4.2 D, Chloride 112 H, Carbon Dioxide 19 L, Anion Gap 13.2, BUN 16 D, Creatinine 1.10 H D, Estimated Creat Clear 70, Estimated GFR 52 L, Est GFR ( Amer) 63 D, Glucose 157 H D, Calcium 8.0 L Pulse Resp BP Pulse Ox O2 Del Method 104 H 22 70/51 L 98 Mechanical Ventilation 08/29/23 14:24 08/29/23 13:34 08/29/23 14:24 08/29/23 14:24 08/29/23 14:24 Laboratory Results - last 24 hr 08/29/23 12:02: Urine Color Yellow, Urine Appearance Clear, Urine pH 6.5, Ur Specific [place] <= 1.005, Urine Protein Negative, Urine Glucose (UA) Negative, Urine Ketones Negative, Urine Blood Negative, Urine Nitrate Negative, Urine Bilirubin Negative, Urine Urobilinogen 1.0, Ur Leukocyte Esterase Negative, Urine RBC None, Urine WBC None, Ur Squamous Epith Cells Occasional, Urine Bacteria Trace 08/29/23 12:13: Specimen Source [place], O2 % 100, ABG pH 7.03 L*, ABG pCO2 62.8 H , ABG pO2 369.7 H, ABG HCO3 16.0 L, ABG Total CO2 18.0 L, ABG O2 Saturation 100, ABG Base Excess -14.8 L, Taj Test N/a, Vent Rate 20, Tidal Volume 400, PEEP 5 08/29/23 12:21: WBC 29.3 H*, RBC 5.25, Hgb 16.4 H, Hct 52.3 H, MCV 99.6 H, MCH 31.3 H, MCHC 31.4 L, RDW 15.0, Plt Count 369, MPV 9.2, Neut % (Auto) 61.8, Lymph % (Auto) 32.3, [place] % (Auto) 2.7, Eos % (Auto) 1.2, Baso % (Auto) 2.1 H, Neut # (Auto) 18.1 H, Lymph # (Auto) 9.4 H, [place] # (Auto) 0.8, Eos # (Auto) 0.4, Baso # (Auto) 0.6 H, Total Counted 100, Neutrophils % (Manual) 42, Band Neutrophils % 8.0, Lymphocytes % (Manual) 43, Monocytes % (Manual) 5, Eosinophils % (Manual) 2, Platelet Estimate Normal, RBC Morphology Normal, Lactate 5.2 H 08/29/23 12:50: PT 12.3, INR 1.15 H, APTT 26.2, Sodium 141, Potassium 2.7 L*, Chloride 112 H, Carbon Dioxide 18 L, Anion Gap 13.7, BUN 6 L, Creatinine 0.90, Estimated Creat Clear 79, Estimated GFR 65, Est GFR ( Amer) 79, Glucose 236 H, Calcium 7.5 L, Phosphorus 4.5, Magnesium 1.6, Total Bilirubin 0.4, AST 40 H, ALT 28, Alkaline Phosphatase 80, Total Protein 5.5 L, Albumin 3.0 L, Globulin 2.5, Albumin/Globulin Ratio 1.2 I & O for Labs for Last 24 Hours: Intake & Output 08/27/23 08/28/23 08/29/23 08/30/23 23:59 23:59 23:59 23:59 Intake Total 1499.771 / 7718.804 3100.155 / 1434.155 Output Total 443 / 483 275 / 275 Balance 1056.771 / 2023.979 1832.155 / 1159.155 Weight 167 lb 15.876 oz 167 lb 15.876 oz Intake & Output 08/26/23 08/27/23 08/28/23 08/29/23 23:59 23:59 23:59 23:59 Weight 154 lb 5.177 oz Microbiology Reports for the Last 24 Hours: Microbiology 08/29/23 11:45 Sputum - Endotracheal Tube Aspirate Gram Stain - Final Constitutional: Present severe distress Comment:: Intubated and Sedated Head: Present normocephalic and atraumatic Neck: Present normal inspection and trachea midline Respiratory: Present patient mechanically ventilated, prolonged expiratory phase, rhonchi and wheezes Cardiac: Present S1/S2 and Tachycardia GI: Present soft; Absent distention or tenderness Skin: Present intact; Absent cyanosis Neuro: Present awake; Absent alert or oriented x 3 Comment:: Intubated and sedated Extremities: Present normal inspection; Absent clubbing or cyanosis Psychiatric: Present unable to assess Assessment and Plan *Assessment and plan (1) Anaphylactic shock: Status: Acute Category: Medical Code(s): T78.2XXA - Anaphylactic shock, unspecified, initial encounter (2) On mechanically assisted ventilation: Status: Acute Category: Medical Code(s): Z99.11 - Dependence on respirator [ventilator] status Plan Much of the history is obtained from chart review. Patient intubated and sedated. Ms. Huang is a 53-year-old female presented to the hospital for an elective CT abdomen with contrast immediately followed by anaphylactic shock needing intubation mechanical ventilatory support and vasopressor support and pulmonary was called for further evaluation management. Family at bedside discussed patient at her baseline normal this morning prior to presentation for her CT imaging. On admission noted to have neutrophilic predominant leukocytosis. CT abdomen from today unremarkable except for hepatomegaly and fatty liver. Slight elevation of AST but ALT and alk phos within normal limits. Admission chest x-ray no dense consolidation or airspace disease. Interval update: No acute respiratory events overnight. Weaned off pressors. Absent cuff leak. Successfully perform SBT. ABG post SBT did not show any evidence of hypoxic hypercarbic respiratory failure. Lactic acidosis improving. Continue to receive antibiotics. Slight improvement in leukocytosis now at 23.0. Cultures pending so far. Oliguric SIGIFREDO. Plan: Continue propofol and fentanyl for sedation. Mechanical ventilator support, currently on PEEP 5 FiO2 40% rate of 24 and tidal volume of 440. Chest x-ray from this morning rotated. No acute/new airspace disease noted. ET tube in place. DuoNebs every 4 hours scheduled Shock resolved. Off pressors. Continue methylprednisolone 80 every 24 hours Continue ceftriaxone and doxycycline Follow with blood and tracheal aspirate culture. Abdomen soft nondistended. Will hold off on initiating tube feeds at this point of time. Renally dose medications. Monitor urine output. - Continue mechanical ventilatory support - Continue AnalgoSedation with Propofol and Fentanyl with CPOT gal less than or euqal to 2 and RASS goal of to 2 (No need for deep sedation) - VAP bundle Recommend elevate head of the bed at 30 to 45 degrees Recommend oral care with chlorhexidne Recommend GI ulcer prophylaxis - Famotidine 20mg IV BID Recommend chemical DVT prophylaxis Total critical care time spent on this patient is 35 minutes managing acute hypoxic respiratory failure needing mechanical ventilation. This time spent include reviewing test results including interpreting chest x-rays, labs and arterial blood gas, optimizing the ventilator settings,formulating plan of care, discussing the plan of care with the team and the nursing staff.
--- NOTE | 2023-08-30 10:35 | PC.NURSE ---
family removed pt mitten from left hand to attempt to write with pen and paper. [id number]
[2023-08-30] MEDS: ONDANSETRON 4MG/2ML VIAL 4 MG IV (10:41)
[2023-08-30] MEDS: FAMOTIDINE 20MG/2ML VIAL 20 MG IV ×2 (10:43→21:17)
[2023-08-30] MEDS: SODIUM CHLORIDE 0.9% 10ML VIAL 8 ML IV (10:43)
[2023-08-30 11:29] LABS: ABG Base Excess -8.3 mmol/L (-2.4-2.3); ABG HCO3 17.8 mmhg (22.0-26.0); ABG Oxygen Saturation 93 % (90-100); ABG PCO2 35.3 mmhg (35.0-45.0); ABG PH 7.32 mmol/L (7.35-7.45); ABG PO2 65.4 mmhg (80-100); ABG TCO2 18.9 mmhg (23-27)
[2023-08-30 11:31] LABS: Oxygen 40 %; Pressure Support 5; Source aline
--- NOTE | 2023-08-30 11:37 | PC.NURSE ---
Addendum entered by Ivy Coronado RN 08/30/23 14:20: 1420 art line zeroed. Original Note: art line zeroed at 1120 and 1135
[2023-08-30] MEDS: propofoL 100 ML 6.29999999999999982 MG IV (12:21)
[2023-08-30] MEDS: FENTANYL CITRATE/PF 1,000 MCG in 0.9 % SODIUM CHLORIDE 80 ML 5 MCG IV (12:55)
--- NOTE | 2023-08-30 13:21 | DIET.NUTRFU ---
Patient is intubated, NPO since admission on 08/28 secondary to intubation. If unable to extubate and start oral diet enteral nutrition is recommended. When medically feasible start TF at [facility] at 20ml/hr with goal rate of 50ml/hr ATC= 1200ml formula/1800kcal/81gm protein with 942 free formula water. Flush dependent on IVF currently on lactated ringers for hydration. labs reviewed. Will continue to follow
[2023-08-30] MEDS: CEFTRIAXONE SODIUM 2 GM in 0.9 % SODIUM CHLORIDE 100 ML IV (13:57)
--- NOTE | 2023-08-30 14:23 | P.PN_ITS ---
Subjective *Date: 08/30/23 *Time: 14:23 Interval history: seen at bedside, currently undergoing SBT trial, no acute events overnight, off epinephrine drip Exam Data for Last 24 hours Vital signs and Labs for Last 24 Hours: Temp Pulse Resp BP Pulse Ox O2 Del Method FiO2 99 F 67 24 103/87 L 100 Mechanical Ventilation 40 08/30/23 08:00 08/30/23 14:00 08/30/23 14:00 08/30/23 14:00 08/30/23 14:00 08/30/23 14:00 08/30/23 14:00 Laboratory Results - last 24 hr 08/29/23 12:21: Troponin I 0.02 08/29/23 15:00: SARS-CoV-2 (PCR) Not detected, Influenza A Untype (PCR) Not detected, Influenza Type B (PCR) Not detected 08/29/23 15:04: Specimen Source A line, O2 % 40, ABG pH 7.15 L*, ABG pCO2 48.0 H , ABG pO2 70.5 L, ABG HCO3 16.3 L, ABG Total CO2 17.8 L, ABG O2 Saturation 92, ABG Base Excess -12.5 L, Taj Test Patient unable, Vent Rate 25, Tidal Volume 420, PEEP 5 08/29/23 15:05: Stl Aeromonas (PCR) Not detected, Stl C. cayetanensis PCR Not detected, Stool Rotavirus (PCR) Not detected, Stl Adenov F 40/41 PCR Not detected, Stool Astrovirus (PCR) Not detected, Stool Campylobacter PCR Not detected, Stl C.difficile Tox PCR Not detected, Stool Cryptosporidium PCR Not detected, Stl E.coli Shiga Tox PCR Not detected, Stool E coli O157 PCR Not detected, Stl Enterotoxigenic E PCR Not detected, Stool EPEC (PCR) Not detected, Stool EAEC (PCR) Not detected, Stl E. histolytica PCR Not detected, Stool Giardia Lamblia PCR Not detected, Stool Salmonella PCR Not detected, Stool Sapovirus (PCR) Not detected, Stl P. shigelloides PCR Not detected, Stl Shigella/EIEC PCR Not detected, St Y.enterocolitica PCR Not detected, Stool Vibrio (PCR) Not detected, Stl Vibrio cholerae PCR Not detected, Stl Norovirus GI/GII PCR Not detected 08/29/23 15:29: Troponin I 0.06 H 08/29/23 16:54: Lactate 5.4 H 08/29/23 18:38: Troponin I 0.06 H 08/29/23 19:26: Lactate 7.3 H 08/30/23 05:57: WBC 23.0 H*, RBC 4.49, Hgb 14.1 D, Hct 43.7, MCV 97.5, MCH 31.3 H, MCHC 32.1, RDW 15.2, Plt Count 179 D, MPV 8.6, Neut % (Auto) 89.2 H, Lymph % (Auto) 6.7 L, Harvey % (Auto) 2.7, Eos % (Auto) 0.7, Baso % (Auto) 0.6, Neut # (Auto) 20.5 H, Lymph # (Auto) 1.5, Harvey # (Auto) 0.6, Eos # (Auto) 0.2, Baso # (Auto) 0.2, Total Counted 100, Neutrophils % (Manual) 90 H, Lymphocytes % (Manual) 8 L, Monocytes % (Manual) 2, Platelet Estimate Normal, RBC Morphology Normal, Sodium 140, Potassium 4.2 D, Chloride 112 H, Carbon Dioxide 19 L, Anion Gap 13.2, BUN 16 D, Creatinine 1.10 H D, Estimated Creat Clear 70, Estimated GFR 52 L, Est GFR ( Amer) 63 D, Glucose 157 H D, Calcium 8.0 L 08/30/23 11:27: Specimen Source ab[place], O2 % 40, ABG pH 7.32 L, ABG pCO2 35.3, ABG pO2 65.4 L, ABG HCO3 17.8 L, ABG Total CO2 18.9 L, ABG O2 Saturation 93, ABG Base Excess -8.3 L, Taj Test n/a I & O for Last 24 hours: Intake & Output 08/27/23 08/28/23 08/29/23 08/30/23 23:59 23:59 23:59 23:59 Intake Total 1499.771 / 6785.740 0189.503 / 1972.503 Output Total 443 / 483 560 / 560 Balance 1056.771 / 4749.881 5125.503 / 1413.503 Weight 76.2 kg 76.2 kg Microbiology Reports for the Last 24 Hours: Microbiology 08/29/23 12:50 Blood Blood Culture - Preliminary NO GROWTH AFTER 24 HOURS 08/29/23 12:21 Blood Blood Culture - Preliminary NO GROWTH AFTER 24 HOURS 08/29/23 11:45 Sputum - Endotracheal Tube Aspirate Gram Stain - Final Constitutional Comments: intubated and sedated *Routine HEENT Exam Head: Present normocephalic Eye: Present EOMI and PERRL ENT: Present mucous membranes moist *Routine Neck Exam Neck: Present supple; Absent lymphadenopathy *Routine Respiratory Exam Respiratory: Present CTA bilaterally *Routine Cardiovascular Exam Cardiovascular: Present RRR *Routine Abdominal Exam Abdominal: Present soft and normoactive bowel sounds; Absent tenderness *Routine Extremities Exam Extremities: Absent cyanosis, clubbing or edema *Routine Skin Exam Skin: Present warm; Absent rash *Routine Neurological Exam Comments: intubated and sedated Assessment and Plan *Assessment and plan (1) Acidosis, lactic: Status: Acute Category: Medical Code(s): E87.20 - Acidosis, unspecified (2) Acute hypoxic respiratory failure: Status: Acute Category: Medical Code(s): J96.01 - Acute respiratory failure with hypoxia (3) Anaphylactic shock: Status: Acute Category: Medical Code(s): T78.2XXA - Anaphylactic shock, unspecified, initial encounter (4) CAD (coronary artery disease): Status: Acute Category: Medical Code(s): I25.10 - Atherosclerotic heart disease of [place] coronary artery without angina pectoris (5) Anal cancer: Status: Acute Category: Medical Code(s): 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.0 - Malignant neoplasm of anus, unspecified Plan Assessment and plan Shock likely anaphylactic shock - improving Patient is off started on epinephrine vasopressin contineu IV Solu-Medrol Started on Rocephin, doxycycline Patient is intubated and sedated, likely to be extubated tomorrow Ventilator dependent respiratory failure Patient is intubated and sedated Consult pulmonary DuoNebs every 4 hours Monitor blood gas Patient is currently on propofol, fentanyl hypokalemia - resolved monitor and replace K level leukocytosis likely reactive - continue empirical Abx with rocephin and doxycyclin, improving blood cultures in process DVT prophylaxis-heparin Pepcid 20 IV twice daily for ulcer prophylaxis N.p.o. for now likely plan to extubate tomorrow
--- NOTE | 2023-08-30 16:54 | PC.NURSE ---
right wrist art line removed at 1640. Manual pressure held until 1654
--- NOTE | 2023-08-30 18:15 | PC.NURSE ---
pt has been moderately to lightly sedated throughout the shift. pt underwent SBT from 0915 to 1115 this am. pt was able to inhale and exhale adequate volumes on vent. pt was noted to have low respiratory rates at time of SBT. pt had 2nd leak test performed by Dr Potter as well. noted minimal to no airflow around ETT during test. pt art line was removed this shift as well r/t inaccurate readings/dampened waveform. pt has had numerous family members present throughout the shift. nad noted. pt is noted to frequently attempt to communicate with family/staff via hand gestures and mouthing of words. nad noted.
--- NOTE | 2023-08-30 22:13 | PC.NURSE ---
R NGT REMOVED PER PT AND SPOUSE REQUEST; NGT NOT BEING USED FOR MEDS OR SUCTION.
[2023-08-31] VITALS (36 sets, daily range): BP systolic 89–146; BP diastolic 39–87; PULSE 56–110; RESP 12–24; TEMP 36.5–37.1; O2SAT 87–98; BMI 27.0
[2023-08-31] MEDS: FENTANYL CITRATE/PF 1,000 MCG in 0.9 % SODIUM CHLORIDE 80 ML 15 MCG IV (01:02)
[2023-08-31] MEDS: IPRATROPIUM/ALBUTEROL 3 ML NEB IH ×5 (02:28→23:35)
--- NOTE | 2023-08-31 02:28 | PC.NURSE ---
EPI AND SEDATION BEING TITRATED NEEDED TO KEEP MAP 65 OR GREATER AND TO KEEP PT COMFORTABLE AND NOT WORKING AGAINST THE VENT. PT GETS VERY ANXIOUS, RESTLESS, AND AGITATED WHEN STIMULATED. THIS RN WILL CONTINUE TO WEAN GTTS PT TOLERATES.
[2023-08-31] MEDS: DOXYCYCLINE HYCLATE 100 MG in 0.9 % SODIUM CHLORIDE 250 ML 166.667000000000002 MG IV ×2 (04:29→13:53)
[2023-08-31] MEDS: EPINEPHrine 5 MG in 0.9 % SODIUM CHLORIDE 250 ML 18.3599999999999994 MG IV (05:39)
[2023-08-31] MEDS: HEPARIN SODIUM 5,000 UNIT/ML VIAL 5000 UNIT SQ ×3 (06:16→20:45)
[2023-08-31 06:57] LABS: Basophils # 0.1 K/mm3 (0-0.2); Basophils % 0.3 % (0.1-2.0); Eosinophils # 0.2 K/mm3 (0.0-0.4); Eosinophils % 0.8 % (0.1-12.0); Hematocrit 35.1 % (37.0-47.0); Hemoglobin 12.1 g/dL (12.2-16.2); Lymphocytes # 1.9 K/mm3 (0.7-4.5); Lymphocytes % 7.8 % (10-50); Mean Corpuscular HGB Conc 34.5 g/dL (31.8-35.4); Mean Corpuscular Hemoglobin 32.6 pg (27.0-31.2); Mean Corpuscular Volume 94.7 fl (81-99); Mean Platelet Volume 8.4 fl (7.4-10.4); Monocytes # 1.1 K/mm3 (0.1-1.0); Monocytes % 4.4 % (1.7-9.3); Neutrophils # 21.2 K/mm3 (1.8-7.8); Neutrophils % 86.6 % (37.0-80.0); Platelet Count 209 K/mm3 (142-424); Red Blood Count 3.71 M/mm3 (4.20-5.40); Red Cell Distribution Width 15.5 % (11.5-17.5); White Blood Count 24.5 K/mm3 (4.8-10.8)
[2023-08-31 07:10] LABS: MANUAL DIFFERENTIAL MANUAL DIFFERENTIAL (MANUAL DIFF)
[2023-08-31 07:12] LABS: Chloride 112 mmol/L (98-107); Potassium 3.2 mmoL/L (3.5-5.1); Sodium 140 mmol/L (136-145)
[2023-08-31 07:14] LABS: Blood Urea Nitrogen 15 mg/dl (7-17); Creatinine Clearance Estimated 111 mL/min (50-200); Estimated Glomerular Filt Rate 87 ml/min (>60); GFR (African American) 106 ML/MIN (>60)
[2023-08-31 07:15] LABS: Anion Gap 12.2 mEq/L (5-15); Calcium 8.3 mg/dl (8.4-10.2); Carbon Dioxide 19 mmol/L (22.0-30.0); Glucose 127 mg/dl (74-100)
[2023-08-31 08:01] LABS: Lymphocytes % 7 % (10-50); Monocytes % 2 % (2-9); Neutrophils % 89 % (42-76); Nucleated Red Blood Cells 2; Total Cells Counted 100
[2023-08-31 08:06] LABS: Hypersegmented Neutrophils 1+; Platelet Estimate Normal; RBC Morphology Normal
[2023-08-31] MEDS: FAMOTIDINE 20MG/2ML VIAL 20 MG IV ×2 (08:12→20:11)
[2023-08-31] MEDS: METHYLPREDNISOLONE SOD SUCC 40MG VIAL 80 MG IV (08:15)
[2023-08-31] MEDS: LACTATED RINGERS 1000ML 1,000 ML 100 ML IV ×2 (08:19→20:11)
--- NOTE | 2023-08-31 08:28 | PC.NURSE ---
RESP CARE NOTE: Pt ET cuff deflated after placing pt into Spontaneous Breathing Trial of 5 cmH2O pressure support and 5 cmH2O of PEEP. Inspiratory Vt 550-600ml ml, expiratory Vt 550-585 ml. Pt has an occasional slight gurgle and excellent cough and gag reflex. Cuff re-inflated using Minimal Leak technique and pt resting comfortably with eyes closed. Will continue to monitor patient.
[2023-08-31] MEDS: ONDANSETRON 4MG/2ML VIAL 4 MG IV ×2 (09:55→20:14)
--- NOTE | 2023-08-31 10:52 | XR_ITS ---
FINAL REPORT CLINICAL HISTORY: MV COMPARISON: 08/30/2023 FINDINGS: There is discoid atelectasis in the perihilar region which is new from the prior study. There is no evidence of effusion or pneumothorax. ET tube is in stable position. There has been interval removal of the NG tube. Heart size is normal. IMPRESSION: New mild atelectasis. Reviewed, Interpreted and Dictated by Faye Becker MD Transcribed by Laura Bush Authenticated and [facility]
--- NOTE | 2023-08-31 10:58 | DIET.NUTRFU ---
Reviewed patient's NPO status with team in rounds, patient may not extubate today d/t increased swelling. She also had her NG removed yesterday secondary to discomfort and family request. If unable to extubate may need to reinsert NG tube to provide nutritional support, recommendations: TF at [facility] at 20ml/hr with goal rate of 50ml/hr ATC= 1200ml formula/1800kcal/81gm protein with 942 free formula water. Flush dependent on IVF currently on lactated ringers for hydration, minimal flush of 50ml QID until IVF discontinued. Propofol held at this time. labs reviewed-potassium replaced. Will continue to follow
[2023-08-31] MEDS: SODIUM CHLORIDE 0.9% 25ML BAG 25 ML IV (11:15)
[2023-08-31] MEDS: PROMETHAZINE HCL 25MG/ML 1ML VIAL 12.5 MG IV (11:15)
--- NOTE | 2023-08-31 11:25 | PC.NURSE ---
Pt extubated at this time and placed on a 6L NC
--- NOTE | 2023-08-31 11:49 | PC.NURSE ---
Addendum entered by Palak Morales RN 08/31/23 11:49: 6LNC not 5LNC Original Note: patient extubated at 1125, put on 5LNC by respiratory
--- NOTE | 2023-08-31 12:28 | EXP.PULM.PN ---
Subjective *Date: 08/31/23 *Time: 12:28 Interval history: No acute respiratory events overnight. Pulmonology Exam Inpatient Vital signs and Labs for Last 24 Hours: Temp Pulse Resp BP Pulse Ox O2 Del Method FiO2 97.7 F 74 16 142/87 H 95 Nasal Cannula 40 08/31/23 11:32 08/31/23 11:00 08/31/23 11:00 08/31/23 11:00 08/31/23 11:00 08/31/23 11:32 08/31/23 07:46 Laboratory Results - last 24 hr 08/31/23 06:50: WBC 24.5 H*, RBC 3.71 L, Hgb 12.1 L, Hct 35.1 L, MCV 94.7, MCH 32.6 H, MCHC 34.5, RDW 15.5, Plt Count 209, MPV 8.4, Neut % (Auto) 86.6 H, Lymph % (Auto) 7.8 L, [place] % (Auto) 4.4, Eos % (Auto) 0.8, Baso % (Auto) 0.3, Neut # (Auto) 21.2 H, Lymph # (Auto) 1.9, [place] # (Auto) 1.1 H, Eos # (Auto) 0.2, Baso # (Auto) 0.1, Total Counted 100, Neutrophils % (Manual) 89 H, Band Neutrophils % 2.0, Lymphocytes % (Manual) 7 L, Monocytes % (Manual) 2, Nucleated RBCs 2, Hypersegmented Neuts 1+, Platelet Estimate Normal, RBC Morphology Normal, Sodium 140, Potassium 3.2 L D, Chloride 112 H, Carbon Dioxide 19 L, Anion Gap 12.2, BUN 15, Creatinine 0.70 D, Estimated Creat Clear 111, Estimated GFR 87, Est GFR ( Amer) 106 D, Glucose 127 H, Calcium 8.3 L Pulse Resp BP Pulse Ox O2 Del Method 104 H 22 70/51 L 98 Mechanical Ventilation 08/29/23 14:24 08/29/23 13:34 08/29/23 14:24 08/29/23 14:24 08/29/23 14:24 Laboratory Results - last 24 hr 08/29/23 12:02: Urine Color Yellow, Urine Appearance Clear, Urine pH 6.5, Ur Specific [place] <= 1.005, Urine Protein Negative, Urine Glucose (UA) Negative, Urine Ketones Negative, Urine Blood Negative, Urine Nitrate Negative, Urine Bilirubin Negative, Urine Urobilinogen 1.0, Ur Leukocyte Esterase Negative, Urine RBC None, Urine WBC None, Ur Squamous Epith Cells Occasional, Urine Bacteria Trace 08/29/23 12:13: Specimen Source Karen, O2 % 100, ABG pH 7.03 L*, ABG pCO2 62.8 H, ABG pO2 369.7 H, ABG HCO3 16.0 L, ABG Total CO2 18.0 L, ABG O2 Saturation 100, ABG Base Excess -14.8 L, Taj Test N/a, Vent Rate 20, Tidal Volume 400, PEEP 5 08/29/23 12:21: WBC 29.3 H*, RBC 5.25, Hgb 16.4 H, Hct 52.3 H, MCV 99.6 H, MCH 31.3 H, MCHC 31.4 L, RDW 15.0, Plt Count 369, MPV 9.2, Neut % (Auto) 61.8, Lymph % (Auto) 32.3, [place] % (Auto) 2.7, Eos % (Auto) 1.2, Baso % (Auto) 2.1 H, Neut # (Auto) 18.1 H, Lymph # (Auto) 9.4 H, [place] # (Auto) 0.8, Eos # (Auto) 0.4, Baso # (Auto) 0.6 H, Total Counted 100, Neutrophils % (Manual) 42, Band Neutrophils % 8.0, Lymphocytes % (Manual) 43, Monocytes % (Manual) 5, Eosinophils % (Manual) 2, Platelet Estimate Normal, RBC Morphology Normal, Lactate 5.2 H 08/29/23 12:50: PT 12.3, INR 1.15 H, APTT 26.2, Sodium 141, Potassium 2.7 L*, Chloride 112 H, Carbon Dioxide 18 L, Anion Gap 13.7, BUN 6 L, Creatinine 0.90, Estimated Creat Clear 79, Estimated GFR 65, Est GFR ( Amer) 79, Glucose 236 H, Calcium 7.5 L, Phosphorus 4.5, Magnesium 1.6, Total Bilirubin 0.4, AST 40 H, ALT 28, Alkaline Phosphatase 80, Total Protein 5.5 L, Albumin 3.0 L, Globulin 2.5, Albumin/Globulin Ratio 1.2 I & O for Labs for Last 24 Hours: Intake & Output 08/28/23 08/29/23 08/30/23 08/31/23 23:59 23:59 23:59 23:59 Intake Total 1499.771 / 1825.251 7516.700 / 2750.700 2229.170 / 2229.170 Output Total 443 / 483 1030 / 1030 1785 / 1785 Balance 1056.771 / 2378.797 4211.700 / 1720.700 444.170 / 444.170 Weight 167 lb 15.876 oz 167 lb 15.876 oz 167 lb 15.876 oz Intake & Output 08/26/23 08/27/23 08/28/23 08/29/23 23:59 23:59 23:59 23:59 Weight 154 lb 5.177 oz Microbiology Reports for the Last 24 Hours: Microbiology 08/29/23 11:45 Sputum - Endotracheal Tube Aspirate Gram Stain - Final 08/29/23 11:45 Sputum - Endotracheal Tube Aspirate Sputum Culture - Preliminary 08/29/23 15:08 Nose MRSA Culture - Final Negative 08/29/23 12:50 Blood Blood Culture - Preliminary NO GROWTH AFTER 24 HOURS 08/29/23 12:21 Blood Blood Culture - Preliminary NO GROWTH AFTER 24 HOURS Constitutional: Present severe distress Comment:: Intubated and Sedated Head: Present normocephalic and atraumatic Neck: Present normal inspection and trachea midline Respiratory: Present patient mechanically ventilated; Absent prolonged expiratory phase, rhonchi or wheezes Cardiac: Present S1/S2 and Tachycardia GI: Present soft; Absent distention or tenderness Skin: Present intact; Absent cyanosis Neuro: Present alert and awake; Absent oriented x 3 Comment:: Intubated and sedated Extremities: Present normal inspection; Absent clubbing or cyanosis Psychiatric: Present unable to assess Assessment and Plan *Assessment and plan (1) Anaphylactic shock: Status: Acute Category: Medical Code(s): T78.2XXA - Anaphylactic shock, unspecified, initial encounter (2) On mechanically assisted ventilation: Status: Acute Category: Medical Code(s): Z99.11 - Dependence on respirator [ventilator] status Plan Much of the history is obtained from chart review. Patient intubated and sedated. Ms. Huang is a 53-year-old female presented to the hospital for an elective CT abdomen with contrast immediately followed by anaphylactic shock needing intubation mechanical ventilatory support and vasopressor support and pulmonary was called for further evaluation management. Family at bedside discussed patient at her baseline normal this morning prior to presentation for her CT imaging. On admission noted to have neutrophilic predominant leukocytosis. CT abdomen from today unremarkable except for hepatomegaly and fatty liver. Slight elevation of AST but ALT and alk phos within normal limits. Admission chest x-ray no dense consolidation or airspace disease. Interval update: No acute respiratory vents overnight. Continue minimal ventilator settings. Blood cultures and tracheal aspirate cultures negative so far. Nasal MRSA PCR negative. Chest x-ray concerning for volume overload, Lasix 40 mg IV once Adequate cuff leak. Will plan to extubate to nasal cannula. Plan: Wean sedation, perform SBT Adequate cuff leak, extubated to nasal cannula Mechanical ventilator support, currently on PEEP 5 FiO2 40% rate of 24 and tidal volume of 440. Tolerating SBT well. Chest x-ray concern for volume overload. ET tube in place. No acute airspace disease. Continue DuoNebs every 6 hours continue Continued to have leukocytosis, will closely monitor. Cultures negative so far. Continue ceftriaxone azithromycin for total of 5 days. Abdomen soft nondistended. Complaining of nausea and vomiting, defer management to primary team. Received Zofran and Phenergan this morning. Renally dose medications. Monitor urine output.
[2023-08-31] MEDS: FUROSEMIDE 40MG/4ML VIAL 40 MG IV (13:14)
--- NOTE | 2023-08-31 15:23 | HMH.SLDYSPHA ---
Speech & Language Evaluation Speech/Language Dysphagia Evaluation Start: 08/31/23 14:56 Freq: ONCE Status: Active Protocol: Document 08/31/23 14:56 [place] (Rec: 08/31/23 15:22 ECLARK Laptop) Co-signed By ST Bob Dysphagia Assess/Goals/Plan Assessment Date of Evaluation: 08/31/23 Evaluation Type Initial Certification Assessment/Problems Post-extubation protocol per MD order Does Patient Qualify for Service No Qualify/Failure Comment Based on clinical observations made during the CSE, the patient does not qualify for skilled speech therapy services. Recommendations PHYSICIAN CERTIFICATION: The specified therapy services are required, authorized, and reviewed every 30 days. Diet Recommendations Mechanical Soft Liquid Type Recommendations Normal/Thin SL Swallow Guidelines Alt bite w/sip thru meal, Standard Aspiration Prec.,Eat at slow rate,Oral Care Education,Reflux precautions Dysphagia Swallow Precautions/Strategies Sitting Upright (90 deg),Small Bites and Sips,Alternate Liquids/Solids Plan Pt/Guardian verbally ack understanding Yes of dx/prognosis/goals G -code Required No Education Instructions provided The results of the CSE were discussed with patient, family , nursing, and care management . Pt/Caregiver able to recall information Able to recall/restate Reinforcement needed No Speech & Language HPI History Present Illness Description of Patient Problem CARDIOPULMONARY TECHNOLOGIST copied statement from pt's H&P: Patient is a 53-year-old female with past medical history of CAD, back pain, rectal cancer, GERD, CAD who was admitted to the hospital after anaphylactic reaction from contrast. Reportedly patient was having CT scan of abdomen and was noted to have low BP, change in mental status after contrast injection, rapid response was called, patient was intubated and admitted to hospital for further management. Patient was having CT abdomen with contrast for for screening pancreatic cancer, chronic abdominal pain according to patient's at the bedside. Pt extubated on 08/31/23. General Information General Current Food Consistancy Mechanical Soft,Thin Liquids Dentition Edentulous Oxygen Status Nasal Cannula Patient Orientation Person,Place,Time,Situation Ability to Follow Directions Excellent Communication Ability No Impairment Voice Voice Quality Breathy,Hoarse,Weak,Loss of Voice Voice Pitch Limited Variation Voice Loudness Severely Soft/Quiet Comment Vocal quality differences 2' post-extubation Dysphagia:Food Presentation Evaluation Food Type Pureed,Mechanical Soft,Liquid, Pudding Dysphagia Evaluation Summary Pt sitting upright at bedside for CSE. Pt was A&O x4. Pt was given extensive oral care prior to bolus trial administration. No overt s/sx of aspiration were observed throughout administration of various bolus consistencies throughout the trial period of CSE. Each bolus consistency was trialed 2-3 times to assess consistency and/or fatigue. The following bolus consistencies were administered: thin liquids ( via ice chips, single sip from open cup/straw, and 2 consecutive sips from open cup /straw), pudding, puree ( applesauce), and mechanical soft (Nutrigrain bar.) Regular solid bolus not trialed 2' edentulous status. Based off these observations made throughout clinical bedside swallow evaluation pt would benefit from mechanical soft, chopped and thin liquid diet. No further skilled speech therapy services are warranted at this time. CARDIOPULMONARY TECHNOLOGIST will fu as needed. Stroke Dysphagia Assessment PHYSICIAN CERTIFICATION: I certify the specified therapy services for Caitlin Huang are required, authorized, and reviewed every 30 days.
--- NOTE | 2023-08-31 15:27 | P.PN_ITS ---
Subjective *Date: 09/01/23 *Time: 14:34 Interval history: patient is seen at bedside, she is under going SBT trial, patient is seen at 9.30 AM Exam Data for Last 24 hours Vital signs and Labs for Last 24 Hours: Temp Pulse Resp BP Pulse Ox O2 Del Method O2 Flow Rate 97.7 F 70 14 135/87 94 L Nasal Cannula 4 08/31/23 11:32 08/31/23 15:00 08/31/23 15:00 08/31/23 15:00 08/31/23 15:00 08/31/23 15:00 08/31/23 15:00 FiO2 40 08/31/23 07:46 Laboratory Results - last 24 hr 08/31/23 06:50: WBC 24.5 H*, RBC 3.71 L, Hgb 12.1 L, Hct 35.1 L, MCV 94.7, MCH 32.6 H, MCHC 34.5, RDW 15.5, Plt Count 209, MPV 8.4, Neut % (Auto) 86.6 H, Lymph % (Auto) 7.8 L, [place] % (Auto) 4.4, Eos % (Auto) 0.8, Baso % (Auto) 0.3, Neut # (Auto) 21.2 H, Lymph # (Auto) 1.9, [place] # (Auto) 1.1 H, Eos # (Auto) 0.2, Baso # (Auto) 0.1, Total Counted 100, Neutrophils % (Manual) 89 H, Band Neutrophils % 2.0, Lymphocytes % (Manual) 7 L, Monocytes % (Manual) 2, Nucleated RBCs 2, Hypersegmented Neuts 1+, Platelet Estimate Normal, RBC Morphology Normal, Sodium 140, Potassium 3.2 L D, Chloride 112 H, Carbon Dioxide 19 L, Anion Gap 12.2, BUN 15, Creatinine 0.70 D, Estimated Creat Clear 111, Estimated GFR 87, Est GFR ( Amer) 106 D, Glucose 127 H, Calcium 8.3 L I & O for Last 24 hours: Intake & Output 08/28/23 08/29/23 08/30/23 08/31/23 23:59 23:59 23:59 23:59 Intake Total 1499.771 / 0308.529 4866.700 / 2750.700 2329.170 / 2329.170 Output Total 443 / 483 1030 / 1030 2650 / 2650 Balance 1056.771 / 0790.736 5469.700 / 1720.700 -320.830 / -320.830 Weight 76.2 kg 76.2 kg 76.2 kg Microbiology Reports for the Last 24 Hours: Microbiology 08/29/23 12:50 Blood Blood Culture - Preliminary NO GROWTH AFTER 48 HOURS 08/29/23 12:21 Blood Blood Culture - Preliminary NO GROWTH AFTER 48 HOURS 08/29/23 11:45 Sputum - Endotracheal Tube Aspirate Gram Stain - Final 08/29/23 11:45 Sputum - Endotracheal Tube Aspirate Sputum Culture - Preliminary 08/29/23 15:08 Nose MRSA Culture - Final Negative Constitutional Comments: intubated and sedated *Routine HEENT Exam Head: Present normocephalic Eye: Present EOMI and PERRL ENT: Present mucous membranes moist *Routine Neck Exam Neck: Present supple; Absent lymphadenopathy *Routine Respiratory Exam Respiratory: Present CTA bilaterally *Routine Cardiovascular Exam Cardiovascular: Present RRR *Routine Abdominal Exam Abdominal: Present soft and normoactive bowel sounds; Absent tenderness *Routine Extremities Exam Extremities: Absent cyanosis, clubbing or edema *Routine Skin Exam Skin: Present warm; Absent rash *Routine Neurological Exam Comments: intubated and sedated Assessment and Plan *Assessment and plan (1) Acidosis, lactic: Status: Acute Category: Medical Code(s): E87.20 - Acidosis, unspecified (2) Acute hypoxic respiratory failure: Status: Acute Category: Medical Code(s): J96.01 - Acute respiratory failure with hypoxia (3) Anaphylactic shock: Status: Acute Category: Medical Code(s): T78.2XXA - Anaphylactic shock, unspecified, initial encounter (4) CAD (coronary artery disease): Status: Acute Category: Medical Code(s): I25.10 - Atherosclerotic heart disease of [place] coronary artery without angina pectoris (5) Anal cancer: Status: Acute Category: Medical Code(s): C21.0 - Malignant neoplasm of anus, unspecified Plan Assessment and plan Shock likely anaphylactic shock - improving Patient is off started on epinephrine vasopressin contineu IV Solu-Medrol Started on Rocephin, doxycycline Patient is intubated and sedated, likely to be extubated tomorrow Ventilator dependent respiratory failure Patient is intubated and sedated Consult pulmonary DuoNebs every 4 hours Monitor blood gas Patient is currently on propofol, fentanyl hypokalemia - resolved monitor and replace K level leukocytosis likely reactive - continue empirical Abx with rocephin and doxycyclin, improving blood cultures in process DVT prophylaxis-heparin Pepcid 20 IV twice daily for ulcer prophylaxis N.p.o. for now likely plan to extubate tomorrow
[2023-08-31] MEDS: CEFTRIAXONE SODIUM 2 GM in 0.9 % SODIUM CHLORIDE 100 ML IV (15:38)
--- NOTE | 2023-08-31 16:25 | ECG_ITS ---
APPROVED REPORT Exam: Resting ECG HR:72 bpm ECG Measurements Heart Rate 72 AXES IN 157 P 56 QRSd 90 QRS 73 QT 425 T -47 QTc 449 Conclusion SINUS RHYTHM WITH SINUS ARRHYTHMIA MODERATE T-WAVE ABNORMALITY, CONSIDER ANTERIOR ISCHEMIA [-0.1+ mV T-WAVE IN V3/V4] MODERATE T-WAVE ABNORMALITY, CONSIDER INFERIOR ISCHEMIA [-0.1+ mV T-WAVE IN II/aVF] ABNORMAL ECG UNCONFIRMED REPORT Electronically signed by : Mesfin Ruelas MD 09/01/2023 08:35:26
--- NOTE | 2023-08-31 16:25 | PC.NURSE ---
1612 patient complained of chest pain, sharp pain in center of chest, no radiation and pain is constant. bp 137/83 95% 2LNC heart rate 69 respirations 22. EKG ordered, respiratory notified.
--- NOTE | 2023-08-31 17:04 | ECG_ITS ---
APPROVED REPORT Exam: Resting ECG HR:65 bpm ECG Measurements Heart Rate 65 AXES OK 154 P 53 QRSd 91 QRS 66 QT 435 T -28 QTc 446 Conclusion SINUS RHYTHM WITH SINUS ARRHYTHMIA MODERATE T-WAVE ABNORMALITY, CONSIDER ANTERIOR ISCHEMIA [-0.1+ mV T-WAVE IN V3/V4] ABNORMAL ECG UNCONFIRMED REPORT Electronically signed by : Mesfin Ruelas MD 09/01/2023 08:35:18
--- NOTE | 2023-08-31 17:29 | PC.NURSE ---
EKG obtained, called to notify hospitalist but was not able to reach them. Took EKG to ER for ER doctor to read, ER doctor stated to get another EKG order in ten minutes to reevaluate. Patient notified and EKG obtained, unchanged from before. notified ER doctor. BP stable, 139/84, heart rate 70, 94% on 2LNC, patient resting. Patient stated pain was a little better and continued to rest.
--- NOTE | 2023-08-31 17:33 | PC.NURSE ---
Patient weaned from 6LNC to 2LNC and tolerating well. Lung sounds clear. Patient resting comfortably in bed upon entering the room each round, no guarding or facial grimacing noted. Patient stated she didn't want to eat anything on dinner tray, other options offered but patient declined and wanted to rest. VS stable.
[2023-08-31] MEDS: MORPHINE 2MG/ML SYRINGE 2 MG IV (20:11)
[2023-09-01] VITALS (20 sets, daily range): BP systolic 120–164; BP diastolic 69–91; PULSE 57–100; RESP 14–22; TEMP 36.6–37.2; O2SAT 88–97; BMI 27.6
--- NOTE | 2023-09-01 00:35 | PC.NURSE ---
PT INCREASED FROM 2L NC TO 4L NC D/T LOW O2 SATS WHILE ASLEEP
[2023-09-01] MEDS: DOXYCYCLINE HYCLATE 100 MG in 0.9 % SODIUM CHLORIDE 250 ML 166.667000000000002 MG IV ×2 (03:45→14:51)
[2023-09-01] MEDS: HEPARIN SODIUM 5,000 UNIT/ML VIAL 5000 UNIT SQ ×3 (04:46→21:31)
[2023-09-01] MEDS: IPRATROPIUM/ALBUTEROL 3 ML NEB IH ×3 (06:05→18:26)
[2023-09-01] MEDS: ONDANSETRON 4MG/2ML VIAL 4 MG IV ×2 (07:15→21:53)
[2023-09-01 07:53] LABS: Anion Gap 15.1 mEq/L (5-15); Blood Urea Nitrogen 18 mg/dl (7-17); Calcium 8.8 mg/dl (8.4-10.2); Carbon Dioxide 24 mmol/L (22.0-30.0); Chloride 109 mmol/L (98-107); Creatinine Clearance Estimated 113 mL/min (50-200); Estimated Glomerular Filt Rate 87 ml/min (>60); GFR (African American) 106 ML/MIN (>60); Glucose 78 mg/dl (74-100); Potassium 4.1 mmoL/L (3.5-5.1); Sodium 144 mmol/L (136-145)
[2023-09-01] MEDS: FAMOTIDINE 20MG/2ML VIAL 20 MG IV ×2 (08:07→20:12)
[2023-09-01] MEDS: SODIUM CHLORIDE 0.9% 10ML VIAL 8 ML IV (08:07)
[2023-09-01] MEDS: ASPIRIN EC 81MG TABLET 81 MG PO (08:08)
[2023-09-01] MEDS: METHYLPREDNISOLONE SOD SUCC 40MG VIAL 80 MG IV (08:08)
[2023-09-01] MEDS: LACTATED RINGERS 1000ML 1,000 ML 100 ML IV ×2 (08:08→20:13)
[2023-09-01] MEDS: PROMETHAZINE HCL 25MG/ML 1ML VIAL 12.5 MG IV (08:26)
[2023-09-01] MEDS: SODIUM CHLORIDE 0.9% 25ML BAG 25 ML IV (08:26)
[2023-09-01 08:42] LABS: Basophils % 0.2 % (0.1-2.0); Eosinophils # 0.1 K/mm3 (0.0-0.4); Eosinophils % 0.5 % (0.1-12.0); Hematocrit 36.3 % (37.0-47.0); Hemoglobin 11.6 g/dL (12.2-16.2); Lymphocytes # 1.4 K/mm3 (0.7-4.5); Lymphocytes % 12.1 % (10-50); Mean Corpuscular HGB Conc 31.8 g/dL (31.8-35.4); Mean Corpuscular Hemoglobin 30.9 pg (27.0-31.2); Mean Corpuscular Volume 97.2 fl (81-99); Mean Platelet Volume 8.7 fl (7.4-10.4); Monocytes # 0.4 K/mm3 (0.1-1.0); Monocytes % 3.7 % (1.7-9.3); Neutrophils # 9.6 K/mm3 (1.8-7.8); Neutrophils % 83.7 % (37.0-80.0); Platelet Count 146 K/mm3 (142-424); Red Blood Count 3.74 M/mm3 (4.20-5.40); Red Cell Distribution Width 15.7 % (11.5-17.5); White Blood Count 11.5 K/mm3 (4.8-10.8)
--- NOTE | 2023-09-01 09:05 | PC.NURSE ---
Patient oxygen saturation 86% at rest on room air
--- NOTE | 2023-09-01 09:55 | P.PN_ITS ---
Subjective *Date: 09/01/23 *Time: 09:55 Medical Exam Vital signs and Labs for Last 24 Hours: Vital Signs Temp Pulse Pulse Resp BP Pulse Ox O2 Del Method 09/01/23 09:00 Room Air 09/01/23 09:00 70 22 145/84 H 93 L Nasal Cannula 09/01/23 08:00 83 22 144/82 H 96 Nasal Cannula 09/01/23 08:00 100 H 09/01/23 07:45 97.8 F 09/01/23 07:25 Nasal Cannula 09/01/23 06:06 62 09/01/23 06:06 64 09/01/23 06:06 94 L Nasal Cannula 09/01/23 06:00 65 18 130/80 95 Nasal Cannula 09/01/23 05:00 61 20 147/85 H 90 L Nasal Cannula 09/01/23 05:00 Nasal Cannula 09/01/23 04:00 98.0 F 09/01/23 04:00 Nasal Cannula 09/01/23 04:00 57 L 18 120/69 97 Nasal Cannula 09/01/23 03:00 63 18 137/77 92 L Nasal Cannula 09/01/23 03:00 Nasal Cannula 09/01/23 02:00 98.0 F 09/01/23 02:00 67 18 132/80 92 L Nasal Cannula 09/01/23 01:00 85 16 136/90 92 L Nasal Cannula 09/01/23 01:00 Nasal Cannula 09/01/23 00:00 Nasal Cannula 09/01/23 00:00 71 18 130/77 88 L Nasal Cannula 08/31/23 23:42 89 08/31/23 23:42 64 08/31/23 23:00 Nasal Cannula 08/31/23 23:00 67 18 112/65 91 L Nasal Cannula 08/31/23 22:00 77 16 128/76 91 L Nasal Cannula 08/31/23 21:00 56 L 16 140/80 92 L Nasal Cannula 08/31/23 21:00 Nasal Cannula 08/31/23 20:00 98.8 F 08/31/23 20:00 Nasal Cannula 08/31/23 20:00 70 18 134/76 92 L Nasal Cannula 08/31/23 19:00 67 20 112/61 91 L Nasal Cannula 08/31/23 19:00 Nasal Cannula 08/31/23 18:56 75 16 116/71 93 L Nasal Cannula 08/31/23 18:49 74 12 116/71 92 L Nasal Cannula 08/31/23 18:00 85 14 116/71 93 L Nasal Cannula 08/31/23 17:59 77 08/31/23 17:59 71 08/31/23 17:59 93 L Nasal Cannula 08/31/23 17:00 Nasal Cannula 08/31/23 17:00 68 16 139/84 94 L Nasal Cannula 08/31/23 16:14 Nasal Cannula 08/31/23 16:00 80 08/31/23 16:00 98.6 F 08/31/23 15:55 69 14 92 L Nasal Cannula 08/31/23 15:00 70 14 135/87 94 L Nasal Cannula 08/31/23 15:00 Nasal Cannula 08/31/23 14:56 Nasal Cannula 08/31/23 14:00 94 L 08/31/23 14:00 78 16 133/81 94 L Nasal Cannula 08/31/23 13:00 Nasal Cannula 08/31/23 13:00 71 16 143/83 H 93 L Nasal Cannula 08/31/23 12:53 65 08/31/23 12:53 64 08/31/23 12:53 87 L Nasal Cannula 08/31/23 12:00 80 08/31/23 12:00 71 08/31/23 12:00 Nasal Cannula 08/31/23 12:00 91 H 16 140/79 93 L Nasal Cannula 08/31/23 11:32 97.7 F Nasal Cannula 08/31/23 11:00 Mechanical Ventilation 08/31/23 11:00 74 16 142/87 H 95 Mechanical Ventilation 08/31/23 10:00 87 24 146/83 H 94 L O2 Flow Rate 09/01/23 09:00 09/01/23 09:00 2 09/01/23 08:00 2 09/01/23 08:00 09/01/23 07:45 09/01/23 07:25 4 09/01/23 06:06 09/01/23 06:06 09/01/23 06:06 4 09/01/23 06:00 4 09/01/23 05:00 4 09/01/23 05:00 4 09/01/23 04:00 09/01/23 04:00 4 09/01/23 04:00 4 09/01/23 03:00 4 09/01/23 03:00 4 09/01/23 02:00 09/01/23 02:00 4 09/01/23 01:00 4 09/01/23 01:00 4 09/01/23 00:00 2 09/01/23 00:00 2 08/31/23 23:42 08/31/23 23:42 08/31/23 23:00 2 08/31/23 23:00 2 08/31/23 22:00 08/31/23 21:00 2 08/31/23 21:00 2 08/31/23 20:00 08/31/23 20:00 2 08/31/23 20:00 2 08/31/23 19:00 2 08/31/23 19:00 08/31/23 18:56 2 08/31/23 18:49 2 08/31/23 18:00 2 08/31/23 17:59 08/31/23 17:59 08/31/23 17:59 2 08/31/23 17:00 2 08/31/23 17:00 2 08/31/23 16:14 2 08/31/23 16:00 08/31/23 16:00 08/31/23 15:55 2 08/31/23 15:00 4 08/31/23 15:00 4 08/31/23 14:56 08/31/23 14:00 4 08/31/23 14:00 4 08/31/23 13:00 6 08/31/23 13:00 6 08/31/23 12:53 08/31/23 12:53 08/31/23 12:53 6 08/31/23 12:00 08/31/23 12:00 08/31/23 12:00 6 08/31/23 12:00 6 08/31/23 11:32 08/31/23 11:00 08/31/23 11:00 08/31/23 10:00 Intake and Output 08/31/23 09/01/23 09/01/23 23:59 07:59 15:59 Intake Total 300 / 2879.170 1039 / 1532 493 / 1532 Output Total 525 / 3500 800 / 1090 290 / 1090 Balance -225 / -620.830 239 / 442 203 / 442 Intake: Intake, Oral Amount 0 / 0 Intake, Total IV Amount 300 / 2502 1039 / 1532 493 / 1532 Ceftriaxone Sodium 2 gm In 0.9 100 / 100 % Sodium Chloride 100 ml @ 200 mls/hr IV Q24H [facility] Rx#:[id number] Doxycycline Hyclate 100 mg In 0 109 / 109 .9 % Sodium Chloride 250 ml @ 166.667 mls/hr IV Q12H [facility] Rx#: [id number] Fentanyl Citrate/Pf 1,000 mcg 0 / 147 In 0.9 % Sodium Chloride 80 ml @ 75 MCG/HR 7.5 mls/hr IV . [id number] [facility] Rx#:[id number] Lactated Ringers 1000ML 1,000 200 / 1418 930 / 1423 493 / 1423 ml @ 100 mls/hr IV .Q10H [facility] Rx #:[id number] Output: Output, Urine Amount 0 / 0 800 / 800 Output, Stool Amount 0 / 0 Output, Emesis Amount 0 / 0 Output, Oral Regurgitation 0 / 0 Amount Output, Pleural Fluid Amount 0 / 0 Output, Estimated Blood Loss 0 / 0 Amount Output, Other Amount 0 / 0 Output, Urine Amount (Catheter) 525 / 3500 290 / 290 Rodriguez 525 / 3500 290 / 290 Other: Number of Unmeasured Voids 0 0 Number of Unmeasured Emesis 0 Episodes Number of Oral Regurgitations 0 Weight 78.103 kg Patient Weight 09/01/23 23:59 Weight 78.103 kg Laboratory Results - last 24 hr 09/01/23 06:28: WBC 11.5 H D, RBC 3.74 L, Hgb 11.6 L, Hct 36.3 L, MCV 97.2, MCH 30.9, MCHC 31.8, RDW 15.7, Plt Count 146 D, MPV 8.7, Neut % (Auto) 83.7 H, Lymph % (Auto) 12.1, [place] % (Auto) 3.7, Eos % (Auto) 0.5, Baso % (Auto) 0.2, Neut # (Auto) 9.6 H, Lymph # (Auto) 1.4, [place] # (Auto) 0.4, Eos # (Auto) 0.1, Baso # (Auto) 0.0, Sodium 144, Potassium 4.1 D, Chloride 109 H, Carbon Dioxide 24, Anion Gap 15.1 H, BUN 18 H, Creatinine 0.70, Estimated Creat Clear 113, Estimated GFR 87, Est GFR ( Amer) 106, Glucose 78 D, Calcium 8.8 I & O for Labs for Last 24 Hours: Intake & Output 08/29/23 08/30/23 08/31/23 09/01/23 23:59 23:59 23:59 23:59 Intake Total 1499.771 / 1220.395 8680.700 / 2750.700 2879.170 / 2879.170 1532 / 1532 Output Total 443 / 483 1030 / 1030 3500 / 3500 1090 / 1090 Balance 1056.771 / 6874.836 8678.700 / 1720.700 -620.830 / -620.830 442 / 442 Weight 76.2 kg 76.2 kg 76.2 kg 78.103 kg Microbiology Reports for the Last 24 Hours: Microbiology 08/29/23 11:45 Sputum - Endotracheal Tube Aspirate Gram Stain - Final 08/29/23 11:45 Sputum - Endotracheal Tube Aspirate Sputum Culture - Preliminary Gram Positive Cocci 08/29/23 21:03 Urine,Catheterized Urine Culture - Final No growth. 08/29/23 12:50 Blood Blood Culture - Preliminary NO GROWTH AFTER 48 HOURS 08/29/23 12:21 Blood Blood Culture - Preliminary NO GROWTH AFTER 48 HOURS 08/29/23 15:08 Nose MRSA Culture - Final Negative The patient's infection will respond to the chosen ABx?: Yes (URINE/BLOOD CX NO GROWTH, ET TUBE CX GRAM POS COCCI/SENSITIVITY PENDING) Is the patient receiving the right drug, dose, and route?: Yes Could a more targeted ABx be ordered?: No
[2023-09-01] MEDS: CEFTRIAXONE SODIUM 2 GM in 0.9 % SODIUM CHLORIDE 100 ML IV (13:44)
--- NOTE | 2023-09-01 14:35 | EXP.PN ---
Subjective *Date: 09/01/23 *Time: 14:35 Interval history: patient is seen at bedside, denied CP, SOB, N/V, she is eating a little, mentions she does not feel hungry Exam Data for Last 24 hours Vital signs and Labs for Last 24 Hours: Temp Pulse Resp BP Pulse Ox O2 Del Method O2 Flow Rate 99.0 F 90 14 148/89 H 90 L Nasal Cannula 3 09/01/23 11:33 09/01/23 12:00 09/01/23 11:33 09/01/23 11:33 09/01/23 11:33 09/01/23 12:53 09/01/23 12:53 FiO2 40 08/31/23 07:46 Laboratory Results - last 24 hr 09/01/23 06:28: WBC 11.5 H D, RBC 3.74 L, Hgb 11.6 L, Hct 36.3 L, MCV 97.2, MCH 30.9, MCHC 31.8, RDW 15.7, Plt Count 146 D, MPV 8.7, Neut % (Auto) 83.7 H, Lymph % (Auto) 12.1, [place] % (Auto) 3.7, Eos % (Auto) 0.5, Baso % (Auto) 0.2, Neut # (Auto) 9.6 H, Lymph # (Auto) 1.4, [place] # (Auto) 0.4, Eos # (Auto) 0.1, Baso # (Auto) 0.0, Sodium 144, Potassium 4.1 D, Chloride 109 H, Carbon Dioxide 24, Anion Gap 15.1 H, BUN 18 H, Creatinine 0.70, Estimated Creat Clear 113, Estimated GFR 87, Est GFR ( Amer) 106, Glucose 78 D, Calcium 8.8 I & O for Last 24 hours: Intake & Output 08/29/23 08/30/23 08/31/23 09/01/23 23:59 23:59 23:59 23:59 Intake Total 1499.771 / 5446.862 1909.700 / 2750.700 2879.170 / 2879.170 1532 / 1532 Output Total 443 / 483 1030 / 1030 3500 / 3500 1240 / 1240 Balance 1056.771 / 9886.806 3027.700 / 1720.700 -620.830 / -620.830 292 / 292 Weight 76.2 kg 76.2 kg 76.2 kg 78.103 kg Microbiology Reports for the Last 24 Hours: Microbiology 08/29/23 11:45 Sputum - Endotracheal Tube Aspirate Gram Stain - Final 08/29/23 11:45 Sputum - Endotracheal Tube Aspirate Sputum Culture - Preliminary Gram Positive Cocci 08/29/23 21:03 Urine,Catheterized Urine Culture - Final No growth. 08/29/23 12:50 Blood Blood Culture - Preliminary NO GROWTH AFTER 48 HOURS 08/29/23 12:21 Blood Blood Culture - Preliminary NO GROWTH AFTER 48 HOURS Constitutional Constitutional: no acute distress *Routine HEENT Exam Head: Present normocephalic Eye: Present EOMI and PERRL ENT: Present mucous membranes moist *Routine Neck Exam Neck: Present supple; Absent lymphadenopathy *Routine Respiratory Exam Respiratory: Present CTA bilaterally *Routine Cardiovascular Exam Cardiovascular: Present RRR *Routine Abdominal Exam Abdominal: Present soft and normoactive bowel sounds; Absent tenderness *Routine Extremities Exam Extremities: Absent cyanosis, clubbing or edema *Routine Skin Exam Skin: Present warm; Absent rash *Routine Neurological Exam Neurological: Present alert and oriented X3 Assessment and Plan *Assessment and plan (1) Acidosis, lactic: Status: Acute Category: Medical Code(s): E87.20 - Acidosis, unspecified (2) Acute hypoxic respiratory failure: Status: Acute Category: Medical Code(s): J96.01 - Acute respiratory failure with hypoxia (3) Anaphylactic shock: Status: Acute Category: Medical Code(s): T78.2XXA - Anaphylactic shock, unspecified, initial encounter (4) CAD (coronary artery disease): Status: Acute Category: Medical Code(s): I25.10 - Atherosclerotic heart disease of [place] coronary artery without angina pectoris (5) Anal cancer: Status: Acute Category: Medical Code(s): C21.0 - Malignant neoplasm of anus, unspecified Plan Assessment and plan Shock likely anaphylactic shock - improved started on epinephrine vasopressin - off pressors continue IV Solu-Medrol Started on Rocephin, doxycycline s/p extubation Ventilator dependent respiratory failure - extrubated currently on 2L NC patient qualifies for home oxygen Patient is intubated and sedated Consult pulmonary DuoNebs every 4h off propofol, fentanyl Hypokalemia - resolved monitor and replace K level leukocytosis likely reactive - continue empirical Abx with rocephin and doxycyclin, improving blood cultures in process DVT prophylaxis-heparin Pepcid 20 IV twice daily for ulcer prophylaxis on regular diet likely dc tomorrow
--- NOTE | 2023-09-01 18:07 | PC.NURSE ---
VS stable, patient on 3LNC and given incentive spirometer. Patient educated on how to use IS and able to demonstrate proper use of IS. Patient able to walk to the bathroom and void with 1-2 assist. Patient still very weak, lung sounds clear but diminished. Zofran and phenergan given for nausea and relief noted. Patient attempting to eat but states that everything tastes nasty and makes her feel sick. Alternative food choices provided but patient unable to eat. Patient voided twice after talbot removal.
[2023-09-01] MEDS: ATORVASTATIN 40MG TABLET 40 MG PO (20:12)
[2023-09-01] MEDS: MORPHINE 2MG/ML SYRINGE 2 MG IV (21:53)
[2023-09-02] VITALS: BP 131/77; PULSE 68; RESP 18; TEMP 37.2; O2SAT 95
[2023-09-02 04:00] VITALS: BP 117/70; PULSE 63; RESP 18; TEMP 36.9; O2SAT 95; BMI 27.6
[2023-09-02] MEDS: HEPARIN SODIUM 5,000 UNIT/ML VIAL 5000 UNIT SQ (04:33)
[2023-09-02] MEDS: DOXYCYCLINE HYCLATE 100 MG in 0.9 % SODIUM CHLORIDE 250 ML 166.667000000000002 MG IV (04:33)
[2023-09-02] MEDS: IPRATROPIUM/ALBUTEROL 3 ML NEB IH ×2 (06:07→11:03)
[2023-09-02 06:08] VITALS: PULSE 66; PULSE 72; O2SAT 93
--- NOTE | 2023-09-02 06:52 | PC.NURSE ---
CARE ASST NOTIFIED OF PIV GOING BAD ON PT AND BEING TAKEN OUT; CARE ASST SAID PIV DOES NOT NEED TO BE REPLACED
[2023-09-02 07:57] VITALS: BP 150/83; PULSE 67; RESP 18; TEMP 36.9; O2SAT 94
[2023-09-02] MEDS: ASPIRIN EC 81MG TABLET 81 MG PO (08:30)
[2023-09-02] MEDS: FAMOTIDINE 20MG TABLET 20 MG PO (08:30)
--- NOTE | 2023-09-02 08:49 | PC.NURSE ---
Patient oxygen saturation 87% on room air at rest.
[2023-09-02 09:40] LABS: Basophils # 0.1 K/mm3 (0-0.2); Basophils % 0.6 % (0.1-2.0); Eosinophils # 0.1 K/mm3 (0.0-0.4); Eosinophils % 0.5 % (0.1-12.0); Hematocrit 36.1 % (37.0-47.0); Hemoglobin 11.8 g/dL (12.2-16.2); Lymphocytes % 16.8 % (10-50); Mean Corpuscular HGB Conc 32.7 g/dL (31.8-35.4); Mean Corpuscular Hemoglobin 31.9 pg (27.0-31.2); Mean Corpuscular Volume 97.6 fl (81-99); Mean Platelet Volume 8.5 fl (7.4-10.4); Monocytes # 0.4 K/mm3 (0.1-1.0); Monocytes % 3.5 % (1.7-9.3); Neutrophils # 9.2 K/mm3 (1.8-7.8); Neutrophils % 78.6 % (37.0-80.0); Platelet Count 171 K/mm3 (142-424); Red Cell Distribution Width 15.4 % (11.5-17.5); White Blood Count 11.7 K/mm3 (4.8-10.8)
[2023-09-02 09:48] LABS: Chloride 109 mmol/L (98-107); Potassium 3.6 mmoL/L (3.5-5.1); Sodium 143 mmol/L (136-145)
[2023-09-02 09:51] LABS: Anion Gap 5.6 mEq/L (5-15); Blood Urea Nitrogen 16 mg/dl (7-17); Carbon Dioxide 32 mmol/L (22.0-30.0); Creatinine Clearance Estimated 88 mL/min (50-200); Estimated Glomerular Filt Rate 65 ml/min (>60); GFR (African American) 79 ML/MIN (>60)
[2023-09-02 09:52] LABS: Calcium 9.1 mg/dl (8.4-10.2); Glucose 93 mg/dl (74-100)
[2023-09-02 11:03] VITALS: PULSE 66; PULSE 70; O2SAT 90
--- NOTE | 2023-09-02 11:21 | HMH.PTEV ---
Physical Therapy Evaluation Rehab PT IP Evaluation Start: 09/01/23 10:13 Freq: ONCE Status: Active Protocol: Document 09/02/23 11:08 ERUM (Rec: 09/02/23 11:21 ERUM [id number]) Subjective/History History History Pt is a 53 y/o female who was admitted to the hospital after anaphylactic reaction from contrast. Reportedly patient was having CT scan of abdomen and was noted to have low BP, change in mental status after contrast injection, rapid response was called, patient was intubated and admitted to hospital for further management. Patient was having CT abdomen with contrast for for screening pancreatic cancer, chronic abdominal pain according to patient's at the bedside Medical History: COPD (chronic obstructive pulmonary disease), On mechanically assisted ventilation, Anaphylactic shock, CAD (coronary artery disease), Abnormal ankle brachial index (KAY), Claudication, History of umbilical hernia, Splenic infarct, GERD ( gastroesophageal reflux disease), Hypothyroid, Cervical cancer, Anal cancer Subjective Subjective Pt reports she feels better today, denies SOA on 1L NC at rest. Pt reports she lives in single story home with 3 steps to enter. Pt reports she lives with her . Pt reports prior to hospitalization she was independent with ambulation, ADLs/iADLs, and driving. Pt reports the doctor/nurses mentioned her being on oxygen all the time once discharged. Pt reports her oxygen drops while she sleeps at night time otherwise she does well. SpO2 94% on 1L NC sitting EOB, dropped to 91% following ambulating 20 feet without oxygen New diagnosis of cancer in past 12 Yes months? Rehab PT IP Eval Objective Appearance Patient Behavior Appropriate,Cooperative Patient Orientation Place,Name,Birthday,Situation Difficulty following instructions none Speech Pattern Clear,Appropriate Ambulation Patient Able to Ambulate Yes Ambulation Observation IP General Gait Pattern Observation Wide Based Gait Ambulation Distance (feet) 20 Ambulation Assistive Device None Ambulation Ability Supervision/Stand by Balance Ability to Arise Able, uses arms to help Sitting Balance Steady, safe Standing Balance Steady, wide stance Dynamic Sitting Balance Ability Good Dynamic Standing Balance Ability Good Transfers Bed Transfer Ability Independent Sit to Stand Bed Transfer Ability Independent Rehab PT IP prob,goals,plan Problems Date of Evaluation: 09/02/23 PT IP Problems Other Other Pt Problem Endurance Rehab Potential Rehab Potential Innapropriate for Skilled Therapy Equipment Needs Assistive Devices None / NA Discharge Plan PT Discharge Plan Pt seems to be at current functional mobility baseline with exception of decreased endurance and supplemental oxygen requirements. Currently the pt is most appropriate to discharge home with family assist once deemed medically stable by MD. Pt may benefit from HHPT once discharged to improve overall muscular strength and endurance post hospitalization. Eval Complexity Eval Charge Codes 59279 - Moderate Complexity PHYSICIAN CERTIFICATION: I certify the specified therapy services for Caitlin Huang are required, authorized, and reviewed every 30 days.
[2023-09-02 11:50] VITALS: BP 150/79; PULSE 71; RESP 18; TEMP 36.7; O2SAT 91
--- NOTE | 2023-09-02 13:35 | P.DS_ITS ---
General Admission date:: 08/29/23 Discharge date: 09/02/23 HPI HPI HPI: Patient is a 53-year-old female with past medical history of CAD, back pain, rectal cancer, GERD, CAD who was admitted to the hospital after anaphylactic reaction from contrast. Reportedly patient was having CT scan of abdomen and was noted to have low BP, change in mental status after contrast injection, rapid response was called, patient was intubated and admitted to hospital for further management. Patient was having CT abdomen with contrast for for screening pancreatic cancer, chronic abdominal pain according to patient's at the bedside Hospital Course Hospital Course Hospital Course: Patient is a 53-year-old female with past medical history of CAD, back pain, rectal cancer, GERD, CAD who was admitted to the hospital after anaphylactic reaction from contrast. Reportedly patient was having CT scan of abdomen and was noted to have low BP, change in mental status after contrast injection, rapid response was called, patient was intubated and admitted to hospital for further management. Patient was having CT abdomen with contrast for for screening pancreatic cancer, chronic abdominal pain according to patient's at the bedside Shock likely anaphylactic shock - resolved patient was admitted after anaphylactic shock from contrast administration, patient was intubated and was evaluated by credit compliance officer, patient had quick recovery and was able to be extubated with 48hrs, patient has hostory of COPD, patient was treated for COPD exacerbation and aspiration pneumonia, patient will be discharged on oral Doxycline and levofloxacin, patient will also be discharged on Home oxygen Patient requires DME home oxygen, patient found to be oxygen saturation 86% on room air. On the date of discharge, the patient reported feeling stable. The patient was found not to be in any acute distress, and no new abnormalities on physical examination. Further, the patient expressed appropriate understanding of, and agreement with, the discharge recommendations, medications, and plan. Time spent 37 mins Exam Data for Last 24 hours Vital signs and Labs for Last 24 Hours: Temp Pulse Resp BP Pulse Ox O2 Del Method O2 Flow Rate 98.1 F 71 18 150/79 H 91 L Room Air 1 09/02/23 11:50 09/02/23 11:50 09/02/23 11:50 09/02/23 11:50 09/02/23 11:50 09/02/23 11:50 09/02/23 11:05 FiO2 40 08/31/23 07:46 Laboratory Results - last 24 hr 09/02/23 09:33: WBC 11.7 H, RBC 3.70 L, Hgb 11.8 L, Hct 36.1 L, MCV 97.6, MCH 31.9 H, MCHC 32.7, RDW 15.4, Plt Count 171, MPV 8.5, Neut % (Auto) 78.6, Lymph % (Auto) 16.8, [place] % (Auto) 3.5, Eos % (Auto) 0.5, Baso % (Auto) 0.6, Neut # (Auto) 9.2 H, Lymph # (Auto) 2.0, [place] # (Auto) 0.4, Eos # (Auto) 0.1, Baso # (Auto) 0.1, Sodium 143, Potassium 3.6, Chloride 109 H, Carbon Dioxide 32 H, Anion Gap 5.6, BUN 16, Creatinine 0.90 D, Estimated Creat Clear 88, Estimated GFR 65, Est GFR ( Amer) 79 D, Glucose 93, Calcium 9.1 I & O for Last 24 hours: Intake & Output 08/30/23 08/31/23 09/01/23 09/02/23 23:59 23:59 23:59 23:59 Intake Total 2750.700 / 2750.700 2879.170 / 2879.170 2349 / 2349 0 / 0 Output Total 1030 / 1030 3500 / 3500 1240 / 1240 0 / 0 Balance 1720.700 / 1720.700 -620.830 / -929.113 8033 / 1109 0 / 0 Weight 76.2 kg 76.2 kg 78.103 kg 78.063 kg Microbiology Reports for the Last 24 Hours: Microbiology 08/29/23 12:50 Blood Blood Culture - Preliminary NO GROWTH AFTER 4 DAYS 08/29/23 12:21 Blood Blood Culture - Preliminary NO GROWTH AFTER 4 DAYS 08/29/23 11:45 Sputum - Endotracheal Tube Aspirate Gram Stain - Final 08/29/23 11:45 Sputum - Endotracheal Tube Aspirate Sputum Culture - Final Streptococcus pneumoniae Constitutional Constitutional: no acute distress *Routine HEENT Exam Head: Present normocephalic Eye: Present EOMI and PERRL ENT: Present mucous membranes moist *Routine Neck Exam Neck: Present supple; Absent lymphadenopathy *Routine Respiratory Exam Respiratory: Present CTA bilaterally *Routine Cardiovascular Exam Cardiovascular: Present RRR *Routine Abdominal Exam Abdominal: Present soft and normoactive bowel sounds; Absent tenderness *Routine Extremities Exam Extremities: Absent cyanosis, clubbing or edema *Routine Skin Exam Skin: Present warm; Absent rash *Routine Neurological Exam Neurological: Present alert and oriented X3 Results Data Completed and Pending Labs on day of discharge: Labs from last 24 hours 09/02/23 09:33 WBC 11.7 H RBC 3.70 L Hgb 11.8 L Hct 36.1 L MCV 97.6 MCH 31.9 H MCHC 32.7 RDW 15.4 Plt Count 171 MPV 8.5 Neut % (Auto) 78.6 Lymph % (Auto) 16.8 [place] % (Auto) 3.5 Eos % (Auto) 0.5 Baso % (Auto) 0.6 Neut # (Auto) 9.2 H Lymph # (Auto) 2.0 [place] # (Auto) 0.4 Eos # (Auto) 0.1 Baso # (Auto) 0.1 Sodium 143 Potassium 3.6 Chloride 109 H Carbon Dioxide 32 H Anion Gap 5.6 BUN 16 Creatinine 0.90 D Estimated Creat Clear 88 Estimated GFR 65 Est GFR ( Amer) 79 D Glucose 93 Calcium 9.1 Preliminary micro results at discharge 08/29/23 12:50 Blood Culture - Preliminary Blood NO GROWTH AFTER 4 DAYS 08/29/23 12:21 Blood Culture - Preliminary Blood NO GROWTH AFTER 4 DAYS DS: Diagnosis Discharge Diagnosis (1) Acidosis, lactic: Status: Acute Code(s): E87.20 - Acidosis, unspecified (2) Acute hypoxic respiratory failure: Status: Acute Code(s): J96.01 - Acute respiratory failure with hypoxia (3) Anaphylactic shock: Status: Acute Code(s): T78.2XXA - Anaphylactic shock, unspecified, initial encounter (4) CAD (coronary artery disease): Status: Acute Code(s): I25.10 - Atherosclerotic heart disease of [place] coronary artery without angina pectoris (5) Anal cancer: Status: Acute Code(s): C21.0 - Malignant neoplasm of anus, unspecified Meds Home Medications and Allergies Home Medications Medication Instructions Recorded Confirmed Type aspirin 81 mg tablet,delayed 81 mg PO DAILY #100 tabs 04/26/23 08/29/23 Rx release albuterol sulfate 90 mcg/actuation 2 puff inhalation Q6H PRN soa 08/29/23 08/29/23 History aerosol inhaler dicyclomine 20 mg tablet 20 mg PO TIDP PRN abdominal pain 08/29/23 08/29/23 History evolocumab 140 mg/mL subcutaneous 140 mg [id number] 08/29/23 08/29/23 History pen injector (Tim Rivera) fluticasone propionate 50 2 spray intranasal DAILYP PRN 08/29/23 08/29/23 History mcg/actuation nasal nasal congestion spray,suspension nitroglycerin 0.4 mg sublingual 0.4 mg sublingual Q5MINP PRN chest 08/29/23 08/29/23 History tablet pain rosuvastatin 20 mg tablet 20 mg PO DAILY 08/29/23 08/29/23 History doxycycline hyclate 100 mg capsule 100 mg PO BID 5 days #10 caps 09/02/23 Rx levofloxacin 750 mg tablet 750 mg PO Q24H 5 days #5 tabs 09/02/23 Rx prednisone 50 mg tablet 50 mg PO DAILY 5 days #5 tabs 09/02/23 Rx New Prescriptions to Start Prescriptions: doxycycline hyclate Binu,Shirin levofloxacin Binu,[place] prednisone Binu,[place] Allergies Allergy/AdvReac Type Severity Reaction Status Date / Time Iodinated Contrast Media Allergy Verified 08/29/23 16:03 Discharge Plan Disposition Patient Disposition: Home, Self-Care Condition: Good Discharge Order Discharge Orders: Discharge Order (Routine); Ordered 09/02/23 Ordered By: Shirin Schmid Follow up Plan Follow up with: Yuri Potter MD [Physician] - 1 week (please call for appointment ) Timoteo Martinez MD [Primary Care Provider] - 1 week (please call for appointment) Prescriptions/Medication Reconciliation: New prednisone 50 mg tablet 50 mg PO DAILY 5 Days Qty: 5 0RF levofloxacin 750 mg tablet 750 mg PO Q24H 5 Days Qty: 5 0RF doxycycline hyclate 100 mg capsule 100 mg PO BID 5 Days Qty: 10 0RF Continued aspirin 81 mg tablet,delayed release (DR/EC) 81 mg PO DAILY Qty: 100 3RF dicyclomine 20 mg tablet 20 mg PO TIDP PRN (Reason: abdominal pain) nitroglycerin 0.4 mg tablet, sublingual 0.4 mg sublingual Q5MINP PRN (Reason: chest pain) Rx Instructions: do not exceed 3 doses per episode fluticasone propionate 50 mcg/actuation spray,suspension 2 spray intranasal DAILYP PRN (Reason: nasal congestion) Rx Instructions: administer into each nostril Repatha SureClick 140 mg/mL pen injector 140 mg SQ [id number] albuterol sulfate 90 mcg/actuation Hfa Aerosol Inhaler 2 puff INHALATION Q6H PRN (Reason: soa) rosuvastatin 20 mg tablet 20 mg PO DAILY Patient Comments: TAKE 1 TABLET BY MOUTH ONCE DAILY Problem Reconciliation Problems Reviewed?: Yes Patient Discharge Instructions DIET: continue same diet Patient Instructions: DI for General Allergic Reactions, DI for Adverse Drug Reaction -- Allergic, Catheter-associated Urinary Tract Infection Providers Primary Care Provider: Timoteo Martinez Provider: Shirin Schmid Attending Provider: Shirin Schmid
== END 2023-09-02 15:33 | disposition home or self-care (01) | DRG 915 ==
LOC: ER 13:29 → 2ND 14:51
PROVIDERS: Internal Medicine Pulmonary Disease; Admitting Provider Internal Medicine; Emergency Provider Emergency Medicine; PCP Family Medicine; Visit Provider Internal Medicine
DX: T88.6XXA Anaphylactic reaction due to adverse effect of correct drug or medicament properly administered, initial encounter (principal); J96.01 Acute respiratory failure with hypoxia; N17.9 Acute kidney failure, unspecified; E87.20 Acidosis, unspecified; I25.10 Atherosclerotic heart disease of native coronary artery without angina pectoris; I73.9 Peripheral vascular disease, unspecified; K21.9 Gastro-esophageal reflux disease without esophagitis; E03.9 Hypothyroidism, unspecified; Z85.41 Personal history of malignant neoplasm of cervix uteri; Z85.048 Personal history of other malignant neoplasm of rectum, rectosigmoid junction, and anus; J44.9 Chronic obstructive pulmonary disease, unspecified; I10 Essential (primary) hypertension; E78.5 Hyperlipidemia, unspecified; R10.9 Unspecified abdominal pain; G89.29 Other chronic pain; E87.6 Hypokalemia
CPT/HCPCS: 31500; 94002; 36415; 51702; 70450; 71045; 74170; 80048; 80053; 81001; 82565; 82803; 83605; 83735; 84100; 84484; 84520; 85007; 85025; 85610; 85730; 87040; 87070; 87077; 87081; 87086; 87186; 87205; 87507; 87636; 92610; 93005; 94003; 94640; 94761; 97162; 99291; 99292; J0696; J2405; J2704; J7120; Q9967

== ENCOUNTER 2023-09-14 10:53 | Emergency (ER) | payer MEDICAID, SELFPAY ==
[2023-09-14] VITALS (9 sets, daily range): BP systolic 123–142; BP diastolic 77–95; PULSE 68–84; RESP 18–20; TEMP 36.7–37.1; O2SAT 91–98; BMI 26.5
--- NOTE | 2023-09-14 10:53 | ECG_ITS ---
APPROVED REPORT Exam: Resting ECG HR:76 bpm ECG Measurements Heart Rate 76 AXES IA 139 P 44 QRSd 88 QRS 67 QT 392 T 3 QTc 423 Conclusion SINUS RHYTHM LOW QRS VOLTAGE IN PRECORDIAL LEADS [QRS DEFLECTION < 1.0 mV IN CHEST LEADS] BORDERLINE ECG Electronically signed by : JESSICA BURNETT, 09/15/2023 07:18:54
--- NOTE | 2023-09-14 10:57 | ED_ITS ---
Discharge Plan Disposition Patient Disposition: Home, Self-Care Condition: Good Prescriptions Prescriptions: New hydroxyzine HCl 25 mg tablet 25 mg PO BID PRN (Reason: anxiety) Qty: 20 0RF methocarbamol 500 mg tablet 500 mg PO HS Qty: 30 0RF No Action aspirin 81 mg tablet,delayed release (DR/EC) 81 mg PO DAILY Qty: 100 3RF albuterol sulfate 90 mcg/actuation HFA aerosol inhaler 2 inh inhalation QID PRN (Reason: shortness of breath or wheezing) 90 Days Qty: 8.5 2RF omeprazole 20 mg capsule,delayed release(DR/EC) 20 mg PO DAILY Patient Comments: TAKE 1 CAPSULE BY MOUTH ONCE DAILY rosuvastatin 20 mg tablet 20 mg PO DAILY Qty: 90 1RF Patient Comments: TAKE 1 TABLET BY MOUTH ONCE DAILY dicyclomine 20 mg tablet 20 mg PO TIDP PRN (Reason: abdominal pain) nitroglycerin 0.4 mg tablet, sublingual 0.4 mg sublingual Q5MINP PRN (Reason: chest pain) Rx Instructions: do not exceed 3 doses per episode fluticasone propionate 50 mcg/actuation spray,suspension 2 spray intranasal DAILYP PRN (Reason: nasal congestion) Rx Instructions: administer into each nostril Repatha SureClick 140 mg/mL pen injector 140 mg SQ [id number] Referrals Follow up/Referrals: Timoteo Martinez MD [Primary Care Provider] - See instructions Activity Restrictions/Add. Instructions Additional Instructions/Restrictions: As we discussed, it is likely that your chest pain is due to the compressions he received when you had that allergic reaction to the IV contrast. I have prescribed a medication to help with his pain as well as a medication to use as needed for anxiety. Please follow-up with your primary care doctor. Please return with any new or worsening symptoms. Clinical Impressions Clinical Impression: Acute chest pain Discharge ED Provider: Hector Stern Adult HPI General Chief complaint: Chest Pain Stated complaint: chest pain Time Seen by Provider: 09/14/23 10:56 History of Present Illness HPI narrative: The patient presents with chest pain that started this morning. She reports a history of a recent ICU stay due to a severe reaction to contrast, during which her throat and tongue swelled up. She is unsure if chest compressions were performed during that event but has been experiencing intermittent chest pain since being discharged from the ICU. The chest pain is described as a crushing sensation, located in the middle of the chest area. The pain is exacerbated slightly upon palpation. There is no pain upon taking deep breaths, and no cough or sputum production is reported. The patient has been experiencing pressure on the chest upon waking up for the past couple of mornings and has also been having panic attacks. No medications have been taken for the chest pain yet. The pain does not radiate or spread to other areas. Please note that above description of symptoms, in this electronic medical record under categorization of recalled from ER triage doctor by RN are reflective of an initial nursing assessment, however, is not reflective of my full history and physical exam that was personally taken and clarified. Consequentially, this preceding description of symptoms, which may include the patient's categorized chief complaint in the EMR, do not reflect my personal clinical impression, and the ultimate description of history of present illness and patient stated complaints should be deferred to this section of the note. Unless stated otherwise or congruent with this section of the note, additional signs, symptoms, or incongruence should be interpreted as inaccurate with my clinical impression. Related Data Home Medications Medication Instructions Recorded Confirmed dicyclomine 20 mg tablet 20 mg PO TIDP PRN abdominal pain 08/29/23 09/13/23 evolocumab 140 mg/mL subcutaneous 140 mg SQ .[id number] 08/29/23 09/13/23 pen injector (Tim Rivera) fluticasone propionate 50 2 spray intranasal DAILYP PRN 08/29/23 09/13/23 mcg/actuation nasal nasal congestion spray,suspension nitroglycerin 0.4 mg sublingual 0.4 mg sublingual Q5MINP PRN chest 08/29/23 09/13/23 tablet pain omeprazole 20 mg capsule,delayed 20 mg PO DAILY 09/10/23 09/13/23 release Previous Rx's Medication Instructions Recorded aspirin 81 mg tablet,delayed 81 mg PO DAILY #100 tabs 04/26/23 release rosuvastatin 20 mg tablet 20 mg PO DAILY #90 tabs 09/04/23 albuterol sulfate 90 mcg/actuation 2 inh inhalation QID PRN shortness 09/13/23 aerosol inhaler of breath or wheezing 90 days #8.5 grams hydroxyzine HCl 25 mg tablet 25 mg PO BID PRN anxiety #20 tabs 09/14/23 methocarbamol 500 mg tablet 500 mg PO HS #30 tabs 09/14/23 Allergies Allergy/AdvReac Type Severity Reaction Status Date / Time Iodinated Contrast Media Allergy Severe Anaphylaxis Verified 09/13/23 13:04 [facility] Disclaimer: The information contained in this section may have been updated after the patient was seen, as this information can be updated by other users. Medical History (Updated 09/14/23 @ 15:06 by Hector Stern MD) History of asthma Anaphylactic reaction to contrast media Smoking greater than 30 pack years Dyspnea on exertion COPD (chronic obstructive pulmonary disease) On mechanically assisted ventilation Anaphylactic shock CAD (coronary artery disease) Abnormal ankle brachial index (KAY) Claudication History of umbilical hernia Splenic infarct GERD (gastroesophageal reflux disease) Hypothyroid Cervical cancer Anal cancer Surgical History History of hernia surgery History of rectal surgery History of hysterectomy History of cholecystectomy Family History Brother Colon cancer Other Alzheimer disease CKD (chronic kidney disease) Coronary artery disease Diabetes Family history of cardiac arrest Liver disease Social History Smoking Status: Current every day smoker tobacco type: cigarettes alcohol intake: never substance use type: denies use current occupational status: unemployed Travel in the last 8 weeks: None caffeine: Yes ROS Obtained: Yes other As per HPI Physical Exam General General appearance: alert and anxious Head Head exam: atraumatic and normocephalic Eye Eye exam: Present normal appearance Neck Neck exam: Present normal inspection Chest Chest inspection: Present normal inspection and symmetric chest wall rise Respiratory Respiratory exam: Present normal lung sounds bilaterally; Absent respiratory distress Cardiovascular Cardiovascular exam: Present regular rate and normal rhythm Abdominal Exam Abdominal exam: Present soft Neurological Exam Neurological exam: Present alert and oriented X3 Psychiatric Psychiatric exam: Present normal affect and normal mood Skin Skin exam: Present warm and dry Other Other exam information: Sternal and parasternal chest wall tenderness to palpation. Medical Decision Making Medical Records Medical records reviewed: Yes I reviewed the patient's medical records. Carlos Alberto Inquiry Pt receiving controlled substance: No Vital Signs: 09/14/23 10:54 09/14/23 11:06 09/14/23 11:30 Temperature 98.8 F Temperature Source Oral Pulse Rate 80 84 Pulse Rate [Right] 80 Respiratory Rate 20 Blood Pressure 134/92 H 133/95 H Blood Pressure [Right Arm] 134/92 H Blood Pressure Mean [Right Arm] 106 02 Sat by Pulse Oximetry 91 L 98 95 Oxygen Delivery Method Room Air 09/14/23 12:30 09/14/23 13:00 09/14/23 13:30 Temperature Temperature Source Pulse Rate 76 82 78 Pulse Rate [Right] Respiratory Rate Blood Pressure 136/89 134/90 131/83 Blood Pressure [Right Arm] Blood Pressure Mean [Right Arm] 02 Sat by Pulse Oximetry 97 95 97 Oxygen Delivery Method 09/14/23 14:00 09/14/23 14:30 09/14/23 15:11 Temperature 98.1 F Temperature Source Pulse Rate 68 80 79 Pulse Rate [Right] Respiratory Rate 18 Blood Pressure 123/82 128/77 142/87 H Blood Pressure [Right Arm] Blood Pressure Mean [Right Arm] 02 Sat by Pulse Oximetry 94 L 94 L Oxygen Delivery Method Room Air Lab Data Lab Results 09/14/23 11:05: WBC 11.1 H, RBC 4.21, Hgb 13.3, Hct 40.6, MCV 96.4, MCH 31.5 H, MCHC 32.7, RDW 15.6, Plt Count 295, MPV 7.9, Neut % (Auto) 74.5, Lymph % (Auto) 18.3, Drew % (Auto) 4.0, Eos % (Auto) 2.4, Baso % (Auto) 0.9, Neut # (Auto) 8.3 H, Lymph # (Auto) 2.0, Drew # (Auto) 0.4, Eos # (Auto) 0.3, Baso # (Auto) 0.1, Sodium 143, Potassium 3.5, Chloride 111 H, Carbon Dioxide 24, Anion Gap 11.5, BUN 8, Creatinine 0.80, Estimated Creat Clear 83, Estimated GFR 75, Est GFR ( Amer) 90, Glucose 97, Calcium 9.7, Magnesium 1.7, Total Bilirubin 0.5, AST 30, ALT 29, Alkaline Phosphatase 75, Troponin I < 0.01, NT-Pro-B Natriuret Pep 67.6, Total Protein 7.1 D, Albumin 4.1, Globulin 3.0, Albumin/Globulin Ratio 1.4, TSH 1.02, Free T4 1.82 09/14/23 11:11: VBG pH 7.45 H, VBG pCO2 34.0 L, VBG pO2 72.5 H, VBG HCO3 23.0, VBG Total CO2 24.1, VBG O2 Saturation 95.3 H, VBG Base Excess -1.0, VBG Lactic Acid 2.6 H 09/14/23 11:20: SARS-CoV-2 (PCR) Not detected, Influenza A Untype (PCR) Not detected, Influenza Type B (PCR) Not detected 09/14/23 14:06: Troponin I < 0.01 09/14/23 11:05 09/14/23 11:05 Orders (Tests/Meds): ED MEDICATIONS Discontinued Medications Generic Name Dose Route Start Last Admin Trade Name Freq PRN Reason Stop Dose Admin Aspirin 325 mg 09/14/23 11:44 09/14/23 11:53 Aspirin 325mg Tablet PO 09/14/23 11:45 325 mg ONCE ONE Administration Hydroxyzine Pamoate 25 mg 09/14/23 11:44 09/14/23 11:53 Hydroxyzine Pamoate 25mg Capsule PO 09/14/23 11:45 25 mg ONCE ONE Administration Lactated Ringer's 1,000 mls @ 999 mls/hr 09/14/23 11:44 09/14/23 11:53 Lactated Ringer's 1000 Ml Bag IV 09/14/23 12:44 999 mls/hr .Q1H1M ONE Administration ORDERS Category Date Time Status XR chest 2V Stat Exams 09/14/23 11:39 Completed BNP [NT Pro Brain Natriuretic Pep.] Stat Lab 09/14/23 11:05 Completed CBC w/Auto Diff [Complete Blood Count Auto Diff] Stat Lab 09/14/23 11:05 Completed CMP [Comprehensive Metabolic Panel] Stat Lab 09/14/23 11:05 Completed Free T4 (Free Thyroxine) Stat Lab 09/14/23 11:05 Completed MAG [Magnesium] Stat Lab 09/14/23 11:05 Completed Rapid PCR Covid and Flu A/B Stat Lab 09/14/23 11:20 Completed TSH [Thyroid Stimulating Hormone] Stat Lab 09/14/23 11:05 Completed Troponin I Q3H Lab 09/14/23 11:05 Completed Troponin I Q3H Lab 09/14/23 14:06 Completed VBG [Venous Blood Gas] Stat RT 09/14/23 11:11 Completed Medical Decision Narrative: Patient with history and exam per above presenting for evaluation of chest wall pain Diagnoses considered include ACS, rib fracture, pneumonia, costochondritis, among others ED workup and treatment included: ED MEDICATIONS Discontinued Medications Generic Name Dose Route Start Last Admin Trade Name Freq PRN Reason Stop Dose Admin Aspirin 325 mg 09/14/23 11:44 09/14/23 11:53 Aspirin 325mg Tablet PO 09/14/23 11:45 325 mg ONCE ONE Administration Hydroxyzine Pamoate 25 mg 09/14/23 11:44 09/14/23 11:53 Hydroxyzine Pamoate 25mg Capsule PO 09/14/23 11:45 25 mg ONCE ONE Administration Lactated Ringer's 1,000 mls @ 999 mls/hr 09/14/23 11:44 09/14/23 11:53 Lactated Ringer's 1000 Ml Bag IV 09/14/23 12:44 999 mls/hr .Q1H1M ONE Administration ORDERS Category Date Time Status XR chest 2V Stat Exams 09/14/23 11:39 Completed BNP [NT Pro Brain Natriuretic Pep.] Stat Lab 09/14/23 11:05 Completed CBC w/Auto Diff [Complete Blood Count Auto Diff] Stat Lab 09/14/23 11:05 Completed CMP [Comprehensive Metabolic Panel] Stat Lab 09/14/23 11:05 Completed Free T4 (Free Thyroxine) Stat Lab 09/14/23 11:05 Completed MAG [Magnesium] Stat Lab 09/14/23 11:05 Completed Rapid PCR Covid and Flu A/B Stat Lab 09/14/23 11:20 Completed TSH [Thyroid Stimulating Hormone] Stat Lab 09/14/23 11:05 Completed Troponin I Q3H Lab 09/14/23 11:05 Completed Troponin I Q3H Lab 09/14/23 14:06 Completed VBG [Venous Blood Gas] Stat RT 09/14/23 11:11 Completed Labs were independently interpreted by me, significant for troponins within normal limits x 2, VBG with respiratory alkalosis consistent with hyperventilation clinically correlated Imaging was independently visualized and interpreted by me, significant for no acute findings. Please refer to radiology report for full details. My clinical impression at this time is most consistent with chest wall pain secondary to history of chest compressions, exacerbated by acute anxiety I discussed my clinical impression with patient and answered all questions. At this time, the evidence for any other entities in the differential is insufficient to warrant any further testing or ED observation. This was explained to the patient. The patient was advised that persistent or worsening symptoms require further evaluation. I confirmed the patient's understanding of this discussion. Critical Care Critical Care Time Critical Care Time: No
[2023-09-14 11:15] LABS: Basophils # 0.1 K/mm3 (0-0.2); Basophils % 0.9 % (0.1-2.0); Eosinophils # 0.3 K/mm3 (0.0-0.4); Eosinophils % 2.4 % (0.1-12.0); Hematocrit 40.6 % (37.0-47.0); Hemoglobin 13.3 g/dL (12.2-16.2); Lymphocytes % 18.3 % (10-50); Mean Corpuscular HGB Conc 32.7 g/dL (31.8-35.4); Mean Corpuscular Hemoglobin 31.5 pg (27.0-31.2); Mean Corpuscular Volume 96.4 fl (81-99); Mean Platelet Volume 7.9 fl (7.4-10.4); Monocytes # 0.4 K/mm3 (0.1-1.0); Neutrophils # 8.3 K/mm3 (1.8-7.8); Neutrophils % 74.5 % (37.0-80.0); Platelet Count 295 K/mm3 (142-424); Red Blood Count 4.21 M/mm3 (4.20-5.40); Red Cell Distribution Width 15.6 % (11.5-17.5); White Blood Count 11.1 K/mm3 (4.8-10.8)
[2023-09-14 11:27] LABS: Coronavirus 19, PCR Not Detected (NotDetected); Influenza A, PCR Not Detected (NotDetected); Influenza B, PCR Not Detected (NotDetected)
[2023-09-14 11:29] LABS: VBG Oxygen Saturation 95.3 % (50-70); VBG PH 7.45 mmol/L (7.31-7.41); VBG PO2 72.5 mmol/L (28-40); VBG Total CO2 24.1 mmol/L (23-27)
[2023-09-14 11:30] LABS: Lactate Venous 2.6 mmol/L (0.4-2.0)
--- NOTE | 2023-09-14 11:39 | XR_ITS ---
FINAL REPORT CLINICAL HISTORY: chest pain COMPARISON: 08/31/2023 FINDINGS: Two views of the chest were obtained. The heart size and pulmonary vascularity are within normal limits. The mediastinum is normal. No acute pulmonary abnormality is identified. There is no pneumothorax. The bony thorax is intact. IMPRESSION: No active cardiopulmonary disease. Reviewed, Interpreted and Dictated by Sammy Vasquez III, MD Transcribed by Laura Bush Authenticated and [facility]
[2023-09-14 11:42] LABS: Chloride 111 mmol/L (98-107); Potassium 3.5 mmoL/L (3.5-5.1); Sodium 143 mmol/L (136-145)
[2023-09-14 11:45] LABS: Alanine Aminotransferase 29 U/L (12-78); Albumin Level 4.1 g/dl (3.5-5.0); Albumin/Globulin Ratio 1.4 (1.1-1.8); Alkaline Phosphatase 75 U/L (38-126); Anion Gap 11.5 mEq/L (5-15); Aspartate Amino Transferase 30 U/L (14-36); Bilirubin,Total 0.5 mg/dl (0.2-1.3); Blood Urea Nitrogen 8 mg/dl (7-17); Calcium 9.7 mg/dl (8.4-10.2); Carbon Dioxide 24 mmol/L (22.0-30.0); Creatinine Clearance Estimated 83 mL/min (50-200); Estimated Glomerular Filt Rate 75 ml/min (>60); GFR (African American) 90 ML/MIN (>60); Glucose 97 mg/dl (74-100); Total Protein,Serum 7.1 g/dl (6.3-8.2)
[2023-09-14 11:46] LABS: Magnesium 1.7 mg/dl (1.6-2.3)
[2023-09-14] MEDS: LACTATED RINGERS 1000ML 1,000 ML 999 ML IV (11:53)
[2023-09-14] MEDS: ASPIRIN 325MG TABLET 325 MG PO (11:53)
[2023-09-14] MEDS: hydrOXYzine pamoate 25MG CAPSULE 25 MG PO (11:53)
[2023-09-14 11:55] LABS: NT Pro Brain Natriuretic Pep. 67.6 pg/mL (0-125)
[2023-09-14 11:59] LABS: Troponin I < 0.01 ng/ml (0.00-0.034)
[2023-09-14 12:02] LABS: Free T4 (Free Thyroxine) 1.82 ng/dl (0.78-2.19)
[2023-09-14 12:17] LABS: Thyroid Stimulating Hormone 1.02 uIU/mL (0.465-4.68)
[2023-09-14 14:51] LABS: Troponin I < 0.01 ng/ml (0.00-0.034)
[2023-09-14 15:29] LABS: Reflex Lactic Add Lactic Reflex
== END 2023-09-14 15:18 | disposition home or self-care (01) ==
PROVIDERS: Emergency Provider Emergency Medicine; PCP Family Medicine
DX: R07.9 Chest pain, unspecified (principal); F17.210 Nicotine dependence, cigarettes, uncomplicated; J44.9 Chronic obstructive pulmonary disease, unspecified; K21.9 Gastro-esophageal reflux disease without esophagitis; E03.9 Hypothyroidism, unspecified
CPT/HCPCS: 71046; 80053; 82803; 83735; 83880; 84439; 84443; 84484; 85025; 87636; 93005; 96360; 99284; J7120

== ENCOUNTER 2023-09-29 12:56 | Emergency (ER) | payer MEDICAID, SELFPAY ==
[2023-09-29 12:57] VITALS: BP 136/92; PULSE 96; RESP 20; TEMP 36.9; O2SAT 96; BMI 27.3
--- NOTE | 2023-09-29 13:12 | PC.NURSE ---
DR TOLENTINO AT BEDSIDE
--- NOTE | 2023-09-29 13:22 | XR_ITS ---
PROCEDURE INFORMATION: Exam: XR Chest Exam date and time: 09/29/2023 1:27 PM Age: 53 years old Clinical indication: Shortness of breath; Additional info: SOA, anxiety TECHNIQUE: Imaging protocol: Radiologic exam of the chest. Views: 1 view. COMPARISON: CR XR CHEST 2V 09/14/2023 11:47 AM FINDINGS: Lungs: Hyperexpanded lung boyd consistent with COPD. No focal consolidation. Pleural spaces: Unremarkable. No pleural effusion. No pneumothorax. Heart/Mediastinum: Unremarkable. No cardiomegaly. Bones/joints: Unremarkable. IMPRESSION: Hyperexpanded lung boyd consistent with COPD. No focal consolidation.
--- NOTE | 2023-09-29 13:24 | ED_ITS ---
Discharge Plan Disposition Patient Disposition: Home, Self-Care Condition: Good Prescriptions Prescriptions: No Action aspirin 81 mg tablet,delayed release (DR/EC) 81 mg PO DAILY Qty: 100 3RF albuterol sulfate 90 mcg/actuation HFA aerosol inhaler 2 inh inhalation QID PRN (Reason: shortness of breath or wheezing) 90 Days Qty: 8.5 2RF hydroxyzine HCl 25 mg tablet 25 mg PO BID PRN dicyclomine 20 mg tablet 20 mg PO TID pioglitazone 30 mg tablet 30 mg PO DAILY Qty: 90 3RF escitalopram oxalate [Lexapro] 20 mg tablet 20 mg PO DAILY Qty: 90 3RF lorazepam 1 mg tablet 1 mg PO DAILY PRN (Reason: panic attack(s)) Qty: 10 0RF omeprazole 20 mg capsule,delayed release(DR/EC) 20 mg PO DAILY Patient Comments: TAKE 1 CAPSULE BY MOUTH ONCE DAILY amitriptyline 25 mg tablet 25 mg PO HS Qty: 30 2RF rosuvastatin 20 mg tablet 20 mg PO DAILY Qty: 90 1RF Patient Comments: TAKE 1 TABLET BY MOUTH ONCE DAILY nitroglycerin 0.4 mg tablet, sublingual 0.4 mg sublingual Q5MINP PRN (Reason: chest pain) Rx Instructions: do not exceed 3 doses per episode fluticasone propionate 50 mcg/actuation spray,suspension 2 spray intranasal DAILYP PRN (Reason: nasal congestion) Rx Instructions: administer into each nostril Repatha SureClick 140 mg/mL pen injector 140 mg SQ .[id number] methocarbamol 500 mg tablet 500 mg PO HS Qty: 30 0RF Referrals Follow up/Referrals: Ayah Tate APRN [Nurse Practitioner] - See instructions Efraín Hercules MD [Staff Physician] - See instructions Timoteo Martinez MD [Primary Care Provider] - See instructions Mynor Crawford MD [Staff Physician] - See instructions Activity Restrictions/Add. Instructions Additional Instructions/Restrictions: You were evaluated in the emergency department today. I am referring you to cardiology to see if they feel potentially a Holter monitor would be beneficial to you to monitor for cardiac events when you get the symptoms. I know you already have follow-up scheduled in December, but I would recommend getting earlier. Please continue taking your anxiety medication prescribed by your primary care provider at home and continue following up outpatient with him. I also recommend follow up with behavioral health. Clinical Impressions Clinical Impression: Anxiety, Elevated serum free T4 level Instructions Patient Instructions: Anxiety Disorders, Anxiety and Panic Attacks (Alternative Therapy) Discharge ED Provider: Cinthya Zamarripa General Adult HPI General Chief complaint: Anxiety Stated complaint: legs burning, weak, shakes, elev. heart rate Time Seen by Provider: 09/29/23 13:02 Mode of Arrival: Ambulatory Source of Information: Patient and Spouse Limitations: No Limitations Description of Symptoms (Recalled from ER Triage Doc. by RN): Patient reports that she thinks that she is having a panic attack. States that ever since she had an allergic reaction to contrast she has had difficulty swallowing, feeling like her throat is swelling, weakness, dizzy and nausea. Presents today stating that her symptoms are getting worse. History of Present Illness HPI narrative: This patient is a 53-year-old female with a history of chronic abdominal pain for which she is followed by gastroenterology, hypertension, hyperlipidemia, diabetes, CAD, tobacco use, and COPD presenting to the emergency department for evaluation with concern for anxiety. Patient was evaluated here by myself back in July, at which point she had what is believed to be an anaphylactic reaction to contrast media. She had acute onset of respiratory failure, shock, and altered mental status after receiving IV contrast for an outpatient CT scan. I intubated the patient and admitted her to the ICU on pressors. Since being extubated, she has been dealing with severe anxiety for which she is followed closely with her primary care provider. She has also been following with pulmonology and gastroenterology. She notes that despite being tried on anxiety medication by her primary care provider, including Ativan and Lexapro, she has been dealing with severe panic attacks. She states that she will get a funny sensation and then started hyperventilating, and she gets to the point where she feels like her throat is swelling, her tongue is strong up in her mouth, she gets tingling of her hands, feet, and around her mouth, and she gets very dizzy and nauseated. She notes that she is constantly afraid that she is going to have another reaction, as she is not sure why this happened in the first place because she had never been allergic to contrast in the past. She notes she has difficulty swallowing when this happens. She has not been eating or drinking very much. She states her symptoms are debilitating and she cannot deal with the anxiety. Related Data Home Medications Medication Instructions Recorded Confirmed evolocumab 140 mg/mL subcutaneous 140 mg SQ .[id number] 08/29/23 09/21/23 pen injector (Tim Rivera) fluticasone propionate 50 2 spray intranasal DAILYP PRN 08/29/23 09/21/23 mcg/actuation nasal nasal congestion spray,suspension nitroglycerin 0.4 mg sublingual 0.4 mg sublingual Q5MINP PRN chest 08/29/23 09/21/23 tablet pain omeprazole 20 mg capsule,delayed 20 mg PO DAILY 09/10/23 09/21/23 release dicyclomine 20 mg tablet 20 mg PO TID 09/21/23 09/21/23 hydroxyzine HCl 25 mg tablet 25 mg PO BID PRN 09/21/23 09/21/23 Previous Rx's Medication Instructions Recorded aspirin 81 mg tablet,delayed 81 mg PO DAILY #100 tabs 04/26/23 release rosuvastatin 20 mg tablet 20 mg PO DAILY #90 tabs 09/04/23 albuterol sulfate 90 mcg/actuation 2 inh inhalation QID PRN shortness 09/13/23 aerosol inhaler of breath or wheezing 90 days #8.5 grams methocarbamol 500 mg tablet 500 mg PO HS #30 tabs 09/14/23 amitriptyline 25 mg tablet 25 mg PO HS #30 tabs 09/20/23 escitalopram oxalate 20 mg tablet 20 mg PO DAILY #90 tabs 09/21/23 (Lexapro) lorazepam 1 mg tablet 1 mg PO DAILY PRN panic attack(s) 09/21/23 #10 tabs pioglitazone 30 mg tablet 30 mg PO DAILY #90 tabs 09/21/23 Allergies Allergy/AdvReac Type Severity Reaction Status Date / Time Iodinated Contrast Media Allergy Severe Anaphylaxis Verified 09/21/23 09:15 [facility] Disclaimer: The information contained in this section may have been updated after the patient was seen, as this information can be updated by other users. Medical History History of asthma Anaphylactic reaction to contrast media Smoking greater than 30 pack years Dyspnea on exertion COPD (chronic obstructive pulmonary disease) On mechanically assisted ventilation Anaphylactic shock CAD (coronary artery disease) Abnormal ankle brachial index (KAY) Claudication History of umbilical hernia Splenic infarct GERD (gastroesophageal reflux disease) Hypothyroid Cervical cancer Anal cancer Surgical History History of hernia surgery History of rectal surgery History of hysterectomy History of cholecystectomy Family History Brother Colon cancer Other Alzheimer disease CKD (chronic kidney disease) Coronary artery disease Diabetes Family history of cardiac arrest Liver disease Social History Smoking Status: Current every day smoker tobacco type: cigarettes alcohol intake: never substance use type: denies use current occupational status: unemployed Travel in the last 8 weeks: None caffeine: Yes ROS Obtained: Yes All systems reviewed & no additional complaints except as documented Physical Exam General General appearance: alert, in no apparent distress and anxious Comment: Very anxious appearing, tearful, hyperventilating Head Head exam: atraumatic and normocephalic Eye Eye exam: Present normal appearance, PERRL and EOMI ENT ENT exam: Present normal exam, normal oropharynx, mucous membranes moist and normal external ear exam Neck Neck exam: Present normal inspection, full ROM and trachea midline; Absent tenderness Chest Chest inspection: Present normal inspection and symmetric chest wall rise; Absent tenderness Respiratory Respiratory exam: Present normal lung sounds bilaterally; Absent respiratory distress, wheezes, stridor or accessory muscle use Cardiovascular Cardiovascular exam: Present regular rate and normal rhythm Abdominal Exam Abdominal exam: Present soft; Absent distention, tenderness, guarding or rebound Extremities Exam Extremities exam: Present normal inspection, full ROM and normal capillary refill; Absent tenderness or edema Back Exam Back exam: Present normal inspection and full ROM; Absent tenderness Neurological Exam Neurological exam: Present alert, oriented X3, CN II-XII intact and normal gait; Absent motor sensory deficit Psychiatric Psychiatric exam: Present anxious Skin Skin exam: Present warm and dry Medical Decision Making Medical Records Medical records reviewed: Yes I reviewed the patient's medical records. Carlos Alberto Inquiry Pt receiving controlled substance: No Vital Signs: 09/29/23 12:57 09/29/23 13:30 09/29/23 14:15 Temperature 98.4 F Temperature Source Oral Pulse Rate 87 77 Pulse Rate [Radial] 96 H Respiratory Rate 20 Blood Pressure 123/87 120/84 Blood Pressure [Right Arm] 136/92 H Blood Pressure Mean [Right Arm] 106 Blood Pressure Source [Right Arm] Automatic Cuff Blood Pressure Position [Right Arm] Sitting 02 Sat by Pulse Oximetry 96 96 89 L Oxygen Delivery Method Room Air Room Air 09/29/23 14:30 09/29/23 15:00 09/29/23 15:25 Temperature 98.4 F Temperature Source Oral Pulse Rate 76 66 81 Pulse Rate [Radial] Respiratory Rate 19 Blood Pressure 118/85 129/82 129/82 Blood Pressure [Right Arm] Blood Pressure Mean [Right Arm] Blood Pressure Source [Right Arm] Blood Pressure Position [Right Arm] 02 Sat by Pulse Oximetry 92 L 92 L Oxygen Delivery Method Room Air Lab Data Lab results reviewed: Yes I reviewed the patient's lab results. Lab Results 09/29/23 13:40: WBC 11.9 H, RBC 4.40, Hgb 14.0, Hct 42.0, MCV 95.6, MCH 31.8 H, MCHC 33.3, RDW 15.6, Plt Count 241, MPV 8.4, Neut % (Auto) 73.7, Lymph % (Auto) 18.9, Carbon % (Auto) 5.0, Eos % (Auto) 1.9, Baso % (Auto) 0.6, Neut # (Auto) 8.8 H, Lymph # (Auto) 2.2, Carbon # (Auto) 0.6, Eos # (Auto) 0.2, Baso # (Auto) 0.1, PT 10.6, INR 0.94, APTT 25.4, Sodium 142, Potassium 3.6, Chloride 105, Carbon Dioxide 27, Anion Gap 13.6, BUN 8, Creatinine 0.90, Estimated Creat Clear 79, Estimated GFR 65, Est GFR ( Amer) 79, Glucose 111 H, Calcium 9.8, Magnesium 1.7, Total Bilirubin 0.4, AST 28, ALT 27, Alkaline Phosphatase 84, Troponin I < 0.01, NT-Pro-B Natriuret Pep 41.9, Total Protein 7.3, Albumin 4.3, Globulin 3.0, Albumin/Globulin Ratio 1.4, TSH 0.49, Thyroxine (T4) 16.8 H 09/29/23 13:46: VBG pH 7.42 H, VBG pCO2 38.5, VBG pO2 104.6 H, VBG HCO3 24.3, VBG Total CO2 25.5, VBG O2 Saturation 98.1 H, VBG Base Excess -0.2, VBG Lactic Acid 1.7 09/29/23 13:40 09/29/23 13:40 Orders (Tests/Meds): ED MEDICATIONS Discontinued Medications Generic Name Dose Route Start Last Admin Trade Name Freq PRN Reason Stop Dose Admin Diazepam 5 mg 09/29/23 13:24 09/29/23 13:34 Diazepam 5mg Tablet PO 09/29/23 13:25 5 mg ONCE ONE Administration ORDERS Category Date Time Status XR chest portable Stat Exams 09/29/23 13:22 Completed Activated Partial Thrombo Time Stat Lab 09/29/23 13:40 Completed BNP [NT Pro Brain Natriuretic Pep.] Stat Lab 09/29/23 13:40 Completed CBC w/Auto Diff [Complete Blood Count Auto Diff] Stat Lab 09/29/23 13:40 Completed CMP [Comprehensive Metabolic Panel] Stat Lab 09/29/23 13:40 Completed MAG [Magnesium] Stat Lab 09/29/23 13:40 Completed Prothrombin Time INR Stat Lab 09/29/23 13:40 Completed T4 (Thyroxine) Stat Lab 09/29/23 13:40 Completed TSH [Thyroid Stimulating Hormone] Stat Lab 09/29/23 13:40 Completed Trop I [Troponin I] Stat Lab 09/29/23 13:40 Completed VBG [Venous Blood Gas] Stat RT 09/29/23 13:46 Completed ECG Data Tracing #1: I reviewed this ECG and interpreted as documented below: Atrial flutter versus normal sinus rhythm motion artifact with a ventricular rate of [address] changes concerning for ischemia. Will plan to repeat to further evaluate for motion artifact vs atrial flutter after anxiolysis when the patient is more calm. Favor motion artifact, as lead I is normal. ECG initial impression date: 09/29/23 Tracing #2: I reviewed this ECG and interpreted as documented below: Normal sinus rhythm with a ventricular rate of [address] changes concerning for ischemia. No significant changes from prior EKG. ECG initial impression date: 09/29/23 ECG initial impression time: 14:05 Medical Decision Narrative: In summary, this patient is a 53-year-old female presenting to the Emergency Department for evaluation of severe anxiety after hospitalization last month for shock and respiratory failure in the setting of presumed anaphylactic action to contrast. Differential diagnoses considered include but are not limited to anxiety, dysrhythmia, electrolyte derangements, hypothyroidism. Ruling out the most morbid conditions drove assessment. It should be noted patient's history includes CAD, hypertension, dyslipidemia, anxiety, tobacco use which may or may not be at goal therapy. This complicates all aspects of care by increasing patient's risk for morbidity. I reviewed patient's past medical records and noted previous evaluations by her PCP as an outpatient for similar issues. I also noted the patient's admission after this reaction. On exam, the patient is very anxious appearing and tearful. She has no stridor to suggest that her airway actually is closing, and her cardiopulmonary exam is reassuring with clear lungs to auscultation and normal vital signs on cardiac telemetry. I feel she most likely has health-related anxiety given the traumatic event that she went through with her unexpected intubation and hospitalization after routine outpatient testing. To evaluate for functional causes, workup was ordered including cardiac workup as well as metabolic workup to evaluate for derangements that could organically cause the patient's symptoms. She was given oral Valium for symptomatic improvement of anxiety. Initial EKG demonstrates Atrial flutter versus normal sinus rhythm motion artifact with a ventricular rate of [address] changes concerning for ischemia. Will plan to repeat to further evaluate for motion artifact vs atrial flutter after anxiolysis when the patient is more calm. Favor motion artifact, as lead I is normal. Repeat EKG at 1400 demonstrated normal sinus rhythm with a ventricular rate of [address] changes concerning for ischemia. No atrial tachycardia or flutter present. I feel first EKG was likely artifact. Overall, will refer the patient to cardiology for outpatient follow-up to see if they feel Holter monitor would be beneficial. I independently interpreted x-ray prior to the radiologist read and noted no acute focal consolidation or pneumothorax. Please see their read for final interpretation. Labs were obtained that demonstrated very mild leukocytosis and mildly elevated T4, which I do not feel is clinically significant at this time. She also has a mild alkalosis, which I feel is likely related to her hyperventilation. On reassessment, the patient is resting calmly with significant improvement in her symptoms after administration of Valium. She has normal vital signs on cardiac telemetry. She is feeling much better. I advised that I do feel we have ruled out life-threatening pathology at this time that would require admission or further evaluation in the emergency department, and I do feel she is appropriate for discharge home with continued follow-up as an outpatient. I provided her with information for follow-up with behavioral health as well as primary care and cardiology. She was given strict return precautions and she was discharged in stable condition after all questions were answered. Critical Care Critical Care Time Critical Care Time: No
--- NOTE | 2023-09-29 13:29 | ECG_ITS ---
APPROVED REPORT Exam: Resting ECG HR:80 bpm ECG Measurements Heart Rate 80 AXES QRSd 87 QRS 95 QT 421 T -23 QTc 457 Conclusion Sinus tachycardia with motion artifact BORDERLINE RIGHT AXIS DEVIATION [QRS AXIS > 90] ST DEVIATION AND MODERATE T-WAVE ABNORMALITY, CONSIDER INFERIOR ISCHEMIA [-0.1+ mV T-WAVE IN II/aVF] Electronically signed by : CARLYLE TOLENTINO, 09/30/2023 15:52:16
[2023-09-29 13:30] VITALS: BP 123/87; PULSE 87; O2SAT 96
[2023-09-29] MEDS: diazePAM 5MG TABLET 5 MG PO (13:34)
--- NOTE | 2023-09-29 13:34 | PC.NURSE ---
XR AT BEDSIDE
[2023-09-29 13:59] LABS: Alanine Aminotransferase 27 U/L (12-78); Albumin Level 4.3 g/dl (3.5-5.0); Albumin/Globulin Ratio 1.4 (1.1-1.8); Alkaline Phosphatase 84 U/L (38-126); Anion Gap 13.6 mEq/L (5-15); Aspartate Amino Transferase 28 U/L (14-36); Bilirubin,Total 0.4 mg/dl (0.2-1.3); Blood Urea Nitrogen 8 mg/dl (7-17); Calcium 9.8 mg/dl (8.4-10.2); Carbon Dioxide 27 mmol/L (22.0-30.0); Chloride 105 mmol/L (98-107); Creatinine Clearance Estimated 79 mL/min (50-200); Estimated Glomerular Filt Rate 65 ml/min (>60); GFR (African American) 79 ML/MIN (>60); Glucose 111 mg/dl (74-100); Magnesium 1.7 mg/dl (1.6-2.3); Potassium 3.6 mmoL/L (3.5-5.1); Sodium 142 mmol/L (136-145); Total Protein,Serum 7.3 g/dl (6.3-8.2)
[2023-09-29 13:59] LABS: Lactate Venous 1.7 mmol/L (0.4-2.0); VBG Base Excess -0.2 mmol/L (-2.4-2.3); VBG HCO3 24.3 mmol/L (23-30); VBG Oxygen Saturation 98.1 % (50-70); VBG PCO2 38.5 mmol/L (35-51); VBG PH 7.42 mmol/L (7.31-7.41); VBG PO2 104.6 mmol/L (28-40); VBG Total CO2 25.5 mmol/L (23-27)
[2023-09-29 14:01] LABS: Activated Partial Thrombo Time 25.4 seconds (22.8-30.6); INR 0.94 (0.9-1.1); Prothrombin Time 10.6 seconds (10.1-12.5)
[2023-09-29 14:03] LABS: Basophils # 0.1 K/mm3 (0-0.2); Basophils % 0.6 % (0.1-2.0); Eosinophils # 0.2 K/mm3 (0.0-0.4); Eosinophils % 1.9 % (0.1-12.0); Lymphocytes # 2.2 K/mm3 (0.7-4.5); Lymphocytes % 18.9 % (10-50); Mean Corpuscular HGB Conc 33.3 g/dL (31.8-35.4); Mean Corpuscular Hemoglobin 31.8 pg (27.0-31.2); Mean Corpuscular Volume 95.6 fl (81-99); Mean Platelet Volume 8.4 fl (7.4-10.4); Monocytes # 0.6 K/mm3 (0.1-1.0); Neutrophils # 8.8 K/mm3 (1.8-7.8); Neutrophils % 73.7 % (37.0-80.0); Platelet Count 241 K/mm3 (142-424); Red Cell Distribution Width 15.6 % (11.5-17.5); White Blood Count 11.9 K/mm3 (4.8-10.8)
--- NOTE | 2023-09-29 14:04 | ECG_ITS ---
APPROVED REPORT Exam: Resting ECG HR:83 bpm ECG Measurements Heart Rate 83 AXES VA 139 P 64 QRSd 89 QRS 94 QT 377 T -14 QTc 417 Conclusion SINUS RHYTHM BORDERLINE RIGHT AXIS DEVIATION [QRS AXIS > 90] NONSPECIFIC T-WAVE ABNORMALITY Electronically signed by : CARLYLE TOLENTINO, 09/30/2023 15:51:53
[2023-09-29 14:09] LABS: NT Pro Brain Natriuretic Pep. 41.9 pg/mL (0-125)
[2023-09-29 14:15] VITALS: BP 120/84; PULSE 77; O2SAT 89
[2023-09-29 14:16] LABS: T4 (Thyroxine) 16.8 ug/dl (5.53-11.0); Troponin I < 0.01 ng/ml (0.00-0.034)
[2023-09-29 14:30] VITALS: BP 118/85; PULSE 76; O2SAT 92
[2023-09-29 14:30] LABS: Thyroid Stimulating Hormone 0.49 uIU/mL (0.465-4.68)
[2023-09-29 15:00] VITALS: BP 129/82; PULSE 66; O2SAT 92
--- NOTE | 2023-09-29 15:19 | PC.NURSE ---
DR TOLENTINO AT BEDSIDE TO UPDATE PT AND FAMILY
[2023-09-29 15:25] VITALS: BP 129/82; PULSE 81; RESP 19; TEMP 36.9; O2SAT 95
== END 2023-09-29 15:26 | disposition home or self-care (01) ==
PROVIDERS: Emergency Provider Emergency Medicine; PCP Family Medicine
DX: F41.0 Panic disorder [episodic paroxysmal anxiety] (principal); R06.4 Hyperventilation; R94.6 Abnormal results of thyroid function studies; R00.0 Tachycardia, unspecified; F17.210 Nicotine dependence, cigarettes, uncomplicated; J44.9 Chronic obstructive pulmonary disease, unspecified; E78.5 Hyperlipidemia, unspecified; I11.9 Hypertensive heart disease without heart failure; I25.10 Atherosclerotic heart disease of native coronary artery without angina pectoris
CPT/HCPCS: 71045; 80053; 82803; 83735; 83880; 84436; 84443; 84484; 85025; 85610; 85730; 93005; 99284

== ENCOUNTER 2023-10-12 10:50 | Outpatient (CLI) | payer MEDICAID, SELFPAY ==
[2023-10-12 19:34] LABS: Triiodothryronine (T3) Uptake 27 % (23.5-40.5)
[2023-10-12 19:35] LABS: Free T4 (Free Thyroxine) 1.49 ng/dl (0.78-2.19)
[2023-10-12 19:49] LABS: Thyroid Stimulating Hormone 1.84 uIU/mL (0.465-4.68)
[2023-10-14 09:08] LABS: Thyroid Peroxidase Antibodies 10 IU/mL (0-34); Triiodothyronine (T3) Free 3.5 pg/mL (2.0-4.4)
== END 2023-10-12 23:59 | disposition home or self-care (01) ==
LOC: LAB.DROPOF 10-15 10:51
PROVIDERS: PCP Family Medicine; Visit Provider Family Medicine
DX: R89.9 Unspecified abnormal finding in specimens from other organs, systems and tissues (principal)
CPT/HCPCS: 84439; 84443; 84479; 84481; 86376

== ENCOUNTER 2024-04-11 10:36 | Outpatient (CLI) | payer MEDICAID, SELFPAY ==
[2024-04-11 18:08] LABS: Basophils % 0.2 % (0.1-2.0); Hematocrit 44.1 % (37.0-47.0); Hemoglobin 14.4 g/dL (12.2-16.2); Lymphocytes # 1.6 K/mm3 (0.7-4.5); Lymphocytes % 9.8 % (10-50); Mean Corpuscular HGB Conc 32.7 g/dL (31.8-35.4); Mean Corpuscular Hemoglobin 30.5 pg (27.0-31.2); Mean Corpuscular Volume 93.4 fl (81-99); Mean Platelet Volume 10.1 fl (7.4-10.4); Monocytes # 0.9 K/mm3 (0.1-1.0); Monocytes % 5.7 % (1.7-9.3); Neutrophils # 13.7 K/mm3 (1.8-7.8); Neutrophils % 83.4 % (37.0-80.0); Platelet Count 357 K/mm3 (142-424); Red Blood Count 4.72 M/mm3 (4.20-5.40); Red Cell Distribution Width 14.2 % (11.5-17.5); White Blood Count 16.5 K/mm3 (4.8-10.8)
[2024-04-11 18:11] LABS: MANUAL DIFFERENTIAL MANUAL DIFFERENTIAL (MANUAL DIFF)
[2024-04-11 18:31] LABS: Alanine Aminotransferase 19 U/L (12-78); Albumin Level 4.3 g/dl (3.5-5.0); Albumin/Globulin Ratio 1.7 (1.1-1.8); Alkaline Phosphatase 84 U/L (38-126); Anion Gap 11.2 mEq/L (5-15); Aspartate Amino Transferase 23 U/L (14-36); Bilirubin,Total 0.2 mg/dl (0.2-1.3); Blood Urea Nitrogen 8 mg/dl (7-17); Carbon Dioxide 28 mmol/L (22.0-30.0); Chloride 107 mmol/L (98-107); Estimated Glomerular Filt Rate 74 ml/min (>60); GFR (African American) 90 ML/MIN (>60); Globulin 2.6 g/dL (1.3-3.2); Glucose 82 mg/dl (74-100); HDL Cholesterol 36 mg/dl (40-60); Lipase 76 U/L (23-300); Potassium 4.2 mmoL/L (3.5-5.1); Sodium 142 mmol/L (136-145); Total Protein,Serum 6.9 g/dl (6.3-8.2); Triglycerides 203 mg/dl (30-150); VLDL Cholesterol 41 mg/dL (0-40)
[2024-04-11 18:41] LABS: Chol/HDL Ratio 9.7 (1-3.5); Cholesterol 349 mg/dl (140-200)
[2024-04-11 18:42] LABS: Direct LDL Cholesterol 273.88 mg/dL (100-129)
[2024-04-11 18:49] LABS: Lymphocytes % 11 % (10-50); Monocytes % 6 % (2-9); Neutrophils % 83 % (42-76); Platelet Estimate Normal; RBC Morphology Normal; Total Cells Counted 100
== END 2024-04-11 23:59 | disposition home or self-care (01) ==
LOC: LAB.DROPOF 04-14 10:37
PROVIDERS: PCP Family Medicine; Visit Provider Family Medicine
DX: R10.9 Unspecified abdominal pain (principal); E78.5 Hyperlipidemia, unspecified
CPT/HCPCS: 80053; 80061; 83690; 85007; 85025; 85027

== ENCOUNTER 2024-04-16 09:35 | Emergency (ER) | payer MEDICAID, SELFPAY ==
[2024-04-16 09:48] VITALS: BP 159/106; PULSE 77; RESP 18; TEMP 36.6; O2SAT 96; BMI 29.7
[2024-04-16 09:52] LABS: Basophils # 0.1 K/mm3 (0-0.2); Basophils % 0.5 % (0.1-2.0); Eosinophils # 0.2 K/mm3 (0.0-0.4); Eosinophils % 1.2 % (0.1-12.0); Hematocrit 46.2 % (37.0-47.0); Hemoglobin 15.1 g/dL (12.2-16.2); Lymphocytes # 2.9 K/mm3 (0.7-4.5); Lymphocytes % 20.8 % (10-50); Mean Corpuscular HGB Conc 32.7 g/dL (31.8-35.4); Mean Corpuscular Hemoglobin 30.1 pg (27.0-31.2); Mean Platelet Volume 9.5 fl (7.4-10.4); Monocytes # 0.8 K/mm3 (0.1-1.0); Monocytes % 5.4 % (1.7-9.3); Neutrophils # 9.9 K/mm3 (1.8-7.8); Neutrophils % 70.5 % (37.0-80.0); Platelet Count 353 K/mm3 (142-424); Red Blood Count 5.02 M/mm3 (4.20-5.40); Red Cell Distribution Width 14.6 % (11.5-17.5); White Blood Count 14.1 K/mm3 (4.8-10.8)
--- NOTE | 2024-04-16 09:54 | PC.NURSE ---
2nd blood culture sent to lab; blue band placed on left wrist. Pt has no other needs at this time
[2024-04-16 10:01] VITALS: BP 150/82; PULSE 88; O2SAT 96
--- NOTE | 2024-04-16 10:10 | CT_ITS ---
FINAL REPORT TECHNIQUE: Noncontrast CT exam of the abdomen and pelvis. This study was performed with techniques to keep radiation doses as low as reasonably achievable (ALARA). Individualized dose reduction techniques using automated exposure control or adjustment of mA and/or kV according to the patient''s size were employed. CLINICAL HISTORY: JONATHON (nonocclusive mesenteric ischemia), refusing contrast, abd pain COMPARISON: CT abdomen 08/29/2023 FINDINGS: Abdomen: Lung bases are clear. The solid organs are negative. The patient is status postcholecystectomy. The kidneys show no stone disease or obstruction. No obvious renal mass is present. No ureteral stones are present. There is no bowel wall thickening or pneumatosis to indicate acute ischemia. Ectasia of the abdominal aorta is noted with moderate calcified plaque disease. Pelvis: The appendix is normal. The patient is status post hysterectomy. The urinary bladder is mildly distended. There is no free fluid. IMPRESSION: Unremarkable appearance of the bowel. Incidental mild bladder distention Reviewed, Interpreted and Dictated by Faye Becker MD Transcribed by Laura Bush Authenticated and [facility]
[2024-04-16 10:15] LABS: Alanine Aminotransferase 19 U/L (12-78); Albumin Level 4.6 g/dl (3.5-5.0); Albumin/Globulin Ratio 1.6 (1.1-1.8); Alkaline Phosphatase 81 U/L (38-126); Anion Gap 11.6 mEq/L (5-15); Aspartate Amino Transferase 23 U/L (14-36); Bilirubin,Total 0.4 mg/dl (0.2-1.3); Blood Urea Nitrogen 10 mg/dl (7-17); Calcium 9.8 mg/dl (8.4-10.2); Carbon Dioxide 28 mmol/L (22.0-30.0); Chloride 106 mmol/L (98-107); Creatinine Clearance Estimated 96 mL/min (50-200); Estimated Glomerular Filt Rate 74 ml/min (>60); GFR (African American) 90 ML/MIN (>60); Globulin 2.9 g/dL (1.3-3.2); Glucose 96 mg/dl (74-100); Potassium 3.6 mmoL/L (3.5-5.1); Sodium 142 mmol/L (136-145); Total Protein,Serum 7.5 g/dl (6.3-8.2)
--- NOTE | 2024-04-16 10:15 | PC.NURSE ---
To CT with body technician
--- NOTE | 2024-04-16 10:23 | PC.NURSE ---
pt returned from CT; ambulatory to the restroom for UA
[2024-04-16 10:31] LABS: Lipase 89 U/L (23-300)
--- NOTE | 2024-04-16 10:35 | ED_ITS ---
Discharge Plan Disposition Patient Disposition: Home, Self-Care Chief Complaint: Abdominal Pain Prescriptions Prescriptions: No Action aspirin 81 mg tablet,delayed release (DR/EC) 81 mg PO DAILY Qty: 100 3RF albuterol sulfate 90 mcg/actuation HFA aerosol inhaler 2 inh inhalation QID PRN (Reason: shortness of breath or wheezing) 90 Days Qty: 8.5 2RF dicyclomine 20 mg tablet 20 mg PO QID PRN (Reason: abdominal pain) Qty: 120 3RF Repatha SureClick 140 mg/mL pen injector 140 mg SQ Q2W Qty: 2 12RF omeprazole 20 mg capsule,delayed release(DR/EC) 20 mg PO DAILY Qty: 90 3RF nitroglycerin 0.4 mg tablet, sublingual 0.4 mg sublingual Q5MINP PRN (Reason: chest pain) Rx Instructions: do not exceed 3 doses per episode fluticasone propionate 50 mcg/actuation spray,suspension 2 spray intranasal DAILYP PRN (Reason: nasal congestion) Rx Instructions: administer into each nostril Referrals Follow up/Referrals: Timoteo Martinez MD [Primary Care Provider] - See instructions Activity Restrictions/Add. Instructions Additional Instructions/Restrictions: Call your family doctor to establish care for this visit to the emergency department and schedule follow-up within 48 hours to ensure improvement. If you have any worsening of your condition or any other concerning signs or symptoms, return to the emergency department or your primary care doctor for further evaluation. Discussed with your primary care provider MRA and MRI of the abdomen to further delineate what may be causing her abdominal pain Clinical Impressions Clinical Impression: Abdominal pain, Encounter for medical assessment Instructions Patient Instructions: DI for Acute Abdominal Pain Print Language Print Language: Telugu Discharge ED Provider: Jhonny Garsia General Adult HPI General Chief complaint: Abdominal Pain Stated complaint: elevated white blood cells Time Seen by Provider: 04/16/24 09:41 Mode of Arrival: Ambulatory Source of Information: Patient Limitations: No Limitations Description of Symptoms (Recalled from ER Triage Doc. by RN): Dr. Martinez sent the pt in due to a high WBC from a lab draw on 04/11. pt states she has had chronic abd pain for years, however, it has been worse the last 3wks. pt states she is having generalized abd pain that is 10/10 and sharp. pt reports when she eats her abd gets very hard. pt reports nausea. pt denies urinary symptoms, V/D, SOA or chest pain. pt took diclomine this am without any relief. pt reports taking 1mg of her PO ativan on arrival. pt is weeping and verbalizes being anxious. pt has an extensive abd hx. pt has a hx of a cain, complete hysterectomy, splenic infarct, CHI, cervical cancer 5yrs ago, and anal cancer 3yrs ago. History of Present Illness HPI narrative: Please note that above description of symptoms, in this electronic medical record under categorization of recalled from ER triage doctor by RN are reflective of an initial nursing assessment, however, is not reflective of my full history and physical exam that was personally taken and clarified. Consequentially, this preceding description of symptoms, which may include the patient's categorized chief complaint in the EMR, do not reflect my personal clinical impression, and the ultimate description of history of present illness and patient stated complaints should be deferred to this section of the note. Unless stated otherwise or congruent with this section of the note, additional signs, symptoms, or incongruence should be interpreted as inaccurate with my clinical impression. Related Data Home Medications ?Medication ?Instructions ?Recorded ?Confirmed fluticasone propionate 50 2 spray intranasal DAILYP PRN 08/29/23 04/11/24 mcg/actuation nasal nasal congestion spray,suspension nitroglycerin 0.4 mg sublingual 0.4 mg sublingual Q5MINP PRN chest 08/29/23 04/11/24 tablet pain Previous Rx's ?Medication ?Instructions ?Recorded aspirin 81 mg tablet,delayed 81 mg PO DAILY #100 tabs 04/26/23 release albuterol sulfate 90 mcg/actuation 2 inh inhalation QID PRN shortness 09/13/23 aerosol inhaler of breath or wheezing 90 days #8.5 grams omeprazole 20 mg capsule,delayed 20 mg PO DAILY #90 caps 12/10/23 release dicyclomine 20 mg tablet 20 mg PO QID PRN abdominal pain 04/11/24 #120 tabs evolocumab 140 mg/mL subcutaneous 140 mg SQ Q2W #2 mL 04/11/24 pen injector (Tim Rivera) Allergies Allergy/AdvReac Type Severity Reaction Status Date / Time Iodinated Contrast Media Allergy Severe Anaphylaxis Verified 04/16/24 09:58 [facility] Disclaimer: The information contained in this section may have been updated after the patient was seen, as this information can be updated by other users. Medical History Bboqskwj-lozivrsonrff-drmviud-juvenile diabetes syndrome Hyperlipidemia Atypical angina History of asthma Anaphylactic reaction to contrast media Smoking greater than 30 pack years Dyspnea on exertion COPD (chronic obstructive pulmonary disease) On mechanically assisted ventilation Anaphylactic shock CAD (coronary artery disease) Abnormal ankle brachial index (KAY) Claudication History of umbilical hernia Splenic infarct GERD (gastroesophageal reflux disease) Hypothyroid Cervical cancer Anal cancer Surgical History History of hernia surgery History of rectal surgery History of hysterectomy History of cholecystectomy Family History Family history of cardiac arrest Liver disease Colon cancer Brother Diabetes Coronary artery disease Alzheimer disease CKD (chronic kidney disease) Social History Smoking Status: Current every day smoker tobacco type: cigarettes alcohol intake: never substance use type: denies use current occupational status: unemployed Travel in the last 8 weeks: None caffeine: Yes Have you lived/traveled outside US in past 30 days?: No Contact w/someone who lives/traveled outside US past 30 days?: No Exposure to someone with infectious disease in past 14 days?: No Do you have a fever (greater than 100.4 F or 38 C)?: No Have you tested positive for COVID-19: No Exposed to someone with COVID-19 in past 14 days?: No Do you have a sore throat?: No Do you have a cough?: No Do you have any weakness?: No Do you have any diarrhea?: No Are you experiencing any unusual bleeding?: No Do you have any muscle aches/pain?: No Do you have any abdominal pain?: No Are you experiencing loss of taste or smell?: No Other Medical History Have you received the Flu Vaccine for this season: No Have you received the Pneumonia Vaccine: No ROS Obtained: Yes All systems reviewed & no additional complaints except as documented Physical Exam General General appearance: alert Head Head exam: atraumatic and normocephalic Eye Eye exam: Present normal appearance, PERRL and EOMI Neck Neck exam: Present normal inspection, full ROM and trachea midline Respiratory Respiratory exam: Absent respiratory distress, wheezes, stridor, accessory muscle use or prolonged expiratory phase Cardiovascular Cardiovascular exam: Present other (Pulses equal symmetric in upper and lower extremities) Abdominal Exam Abdominal exam: Present soft and tenderness; Absent distention, guarding, rebound, rigidity or pulsatile mass Abdominal tenderness: Present diffuse and mild Extremities Exam Extremities exam: Absent edema Neurological Exam Neurological exam: Present alert, oriented X3 and CN II-XII intact; Absent motor sensory deficit Skin Skin exam: Present warm and dry; Absent diaphoresis or erythema Medical Decision Making Medical Records Medical records reviewed: Yes I reviewed the patient's medical records. Screening: Per USPSTF and CDC recommendations, given the prevalence of disease in our region, it is our hospital?s policy to screen for HIV and viral Hepatitis for all patients aged 18 and over and those with ongoing risk factors. Carlos Alberto Inquiry Pt receiving controlled substance: No Carlos Alberto was queried for this patient: No Vital Signs: 04/16/24 09:48 04/16/24 10:01 04/16/24 10:42 Temperature 98 F Temperature Source Oral Pulse Rate 88 79 Pulse Rate [Left] 77 Respiratory Rate 18 Blood Pressure 150/82 H 140/76 Blood Pressure [Right Arm] 159/106 H Blood Pressure Mean 99 Blood Pressure Mean [Right Arm] 123 Blood Pressure Source [Right Arm] Automatic Cuff Blood Pressure Position [Right Arm] Sitting 02 Sat by Pulse Oximetry 96 96 94 L Oxygen Delivery Method Room Air Room Air Room Air 04/16/24 11:00 Temperature Temperature Source Pulse Rate 71 Pulse Rate [Left] Respiratory Rate Blood Pressure 124/76 Blood Pressure [Right Arm] Blood Pressure Mean Blood Pressure Mean [Right Arm] Blood Pressure Source [Right Arm] Blood Pressure Position [Right Arm] 02 Sat by Pulse Oximetry 94 L Oxygen Delivery Method Room Air Lab Data Lab Results 04/16/24 09:45: WBC 14.1 H, RBC 5.02, Hgb 15.1, Hct 46.2, MCV 92.0, MCH 30.1, MCHC 32.7, RDW 14.6, Plt Count 353, MPV 9.5, Neut % (Auto) 70.5, Lymph % (Auto) 20.8, [place] % (Auto) 5.4, Eos % (Auto) 1.2, Baso % (Auto) 0.5, Neut # (Auto) 9.9 H, Lymph # (Auto) 2.9, [place] # (Auto) 0.8, Eos # (Auto) 0.2, Baso # (Auto) 0.1, Sodium 142, Potassium 3.6, Chloride 106, Carbon Dioxide 28, Anion Gap 11.6, BUN 10, Creatinine 0.80, Estimated Creat Clear 96, Estimated GFR 74, Est GFR ( Amer) 90, Glucose 96, Lactate 1.2, Calcium 9.8, Total Bilirubin 0.4, AST 23, ALT 19, Alkaline Phosphatase 81, Total Protein 7.5, Albumin 4.6, Globulin 2.9, Albumin/Globulin Ratio 1.6, Lipase 89 04/16/24 10:41: Urine Color Yellow, Urine Appearance Clear, Urine pH 7.0, Ur Specific [place] <= 1.005, Urine Protein Negative, Urine Glucose (UA) Negative, Urine Ketones Negative, Urine Blood Negative, Urine Nitrate Negative, Urine Bilirubin Negative, Urine Urobilinogen 0.2, Ur Leukocyte Esterase Negative 04/16/24 09:45 04/16/24 09:45 Orders (Tests/Meds): ORDERS Category Date Time Status CT abdomen pelvis wo con Stat Cat Scan 04/16/24 10:10 Completed CBC w/Auto Diff [Complete Blood Count Auto Diff] Stat Lab 04/16/24 09:45 Completed CMP [Comprehensive Metabolic Panel] Stat Lab 04/16/24 09:45 Completed HIV Combo Stat Lab 04/16/24 09:45 Received Hepatitis C Ab Qual. W/ RFX Stat Lab 04/16/24 09:45 Received Lactic Acid Stat Lab 04/16/24 09:45 Completed Lipase Stat Lab 04/16/24 09:45 Completed UA [Urinalysis and Microscopic] Stat Lab 04/16/24 10:41 Results Blood Culture Stat Micro 04/16/24 09:54 Received Medical Decision Narrative: This is a 54-year-old female presenting with abdominal pain and elevated white blood cell count. She states that she had labs drawn couple days ago for chronic abdominal pain and was told to come to the emergency department. She states that her white blood cell count was high. No other symptoms. Upon further questioning, patient states that she has chronic abdominal pain. Eating seems to make it worse, not eating seems to make it better, but is still present when she is not eating. Is diffuse, crampy, severe and when she eats my stomach gets hard. No blood in her stool consistently, but she has had a couple of dark stools over the past few years. No anticoagulation.. It should be noted the patient is smoking like a freight train, has hypertension, hyperlipidemia, numerous comorbidities which are not at goal management likely complicating care. She also has a history of cervical cancer which was reportedly an remission. History was obtained via conversation with patient. On arrival, patient hemodynamically stable, alert, oriented x4, appropriate, GCS 15, moving all extremities spontaneously, pupils equal and reactive to light. Full physical exam performed and significant for anxious appearing female no acute distress. Abdomen is soft, nondistended, but mildly and diffusely tender. Requires very deep palpation to elicit any tenderness, likely secondary to amount of pressure being applied. No overlying skin changes.. Differential includes nonocclusive mesenteric ischemia, gastritis, enteritis, PUD, UTI, nephrolithiasis, appendicitis, malignancy,Obstruction, among others. Patient placed on continuous cardiac monitoring and continuous pulse ox with initial blood pressure 159/106, heart rate 77, saturation 96% on room air. Patient offered pain meds, but not requiring any here in the emergency department. I discussed CT scan with patient. She adamantly declines receiving contrast for CT angiogram of the abdomen and pelvis to assess for mesenteric ischemia. States that she had cardiac arrest event in the recent past and has PTSD from that. States that she will not receive contrast even with pretreatment. She states that she has received numerous contrasted scans prior to that without any issue, unsure what happened previously. It was explained to patient that without being able to give contrast, unable to rule out most morbid conditions, she voiced her understanding. She has capacity to make this decision and very clearly responds and restates risks and benefits of receiving contrast versus not. Ultimately opting out of contrast. in the room to witness and corroborate this. Dry scan ordered. Workup independently interpreted and significant for nonactionable CBC with downtrending leukocytosis and nonactionable abdominal labs and urine. On independent interpretation of imaging, no acute intra-abdominal abnormalities. See radiology read for full review of final results. On reevaluation, patient still resting comfortably. I contacted patient's primary care provider to discuss outpatient ordering of MRI and MRA of the abdomen to further delineate patient's pain. She did have CT angiogram done in 2020 for about a year ago that was really on concerning for occlusive versus nonocclusive chronic mesenteric ischemia. Given patient's pain has not been explained by any workup outpatient or here in the emergency department. I feel an MRA and MRI of the abdomen would be helpful. Given patient presentation, workup, history, this most likely represents acute on chronic abdominal pain, medical evaluation given elevated white blood cell count. Because patient at baseline without signs or symptoms of clinical decompensation, deemed appropriate for discharge. Results were relayed to patient who voiced understanding and were agreeable to outpatient management and follow up. I discussed my clinical impression with patient and answered all questions. At this time, the evidence for any other entities in the differential is insufficient to warrant any further testing or ED observation. This was explained as well. Advisory was given that persistent or worsening symptoms require further evaluation. I confirmed the understanding of this discussion. Concreting Supervisor disclaimer Much of this encounter note is an electronic real estate office manager spoken language to printed text. Electronic real estate office manager of the spoken language may permit errors. Although I have reviewed the note, some errors may still exist. Critical Care Critical Care Time Critical Care Time: No
[2024-04-16 10:42] VITALS: BP 140/76; PULSE 79; O2SAT 94
[2024-04-16 10:47] LABS: Microscopic, Urine URINE MICROSCOPIC (MICROSCOPIC)
--- NOTE | 2024-04-16 10:49 | PC.NURSE ---
DR SUTHERLAND SPEAKING WITH DR BUTT
[2024-04-16 10:51] LABS: Appearance,Urine CLEAR (Clear); Bilirubin,Urine Negative (Negative); Blood, Urine Negative (Negative); Color,Urine YELLOW (Yellow); Glucose,Urine (UA) Negative (Negative); Ketones,Urine Negative (Negative); Leukocyte Esterase,Urine Negative (Negative); Nitrate,Urine Negative (Negative); Protein,Urine Negative (Negative); Specific Gravity, Urine <= 1.005 (1.005-1.030); Urobilinogen,Urine 0.2 EU/dl (0.2)
[2024-04-16 11:00] VITALS: BP 124/76; PULSE 71; O2SAT 94
[2024-04-16 11:05] LABS: Lactic Acid 1.2 mmol/L (0.7-2.1)
[2024-04-16 11:24] LABS: Bacteria,Urine Trace /lpf
[2024-04-16 11:44] VITALS: BP 140/88; PULSE 82; RESP 16; TEMP 36.6; O2SAT 97
[2024-04-16 12:12] LABS: HIV Combo NEGATIVE (Negative)
[2024-04-16 13:53] LABS: Hepatitis C Ab Qual. W/ RFX NEGATIVE (Negative)
== END 2024-04-16 11:45 | disposition home or self-care (01) ==
PROVIDERS: Emergency Provider Emergency Medicine; PCP Family Medicine
DX: Z00.8 Encounter for other general examination (principal); R10.84 Generalized abdominal pain; R11.0 Nausea
CPT/HCPCS: 74176; 80053; 81001; 83605; 83690; 85025; 86803; 87040; 87389; 99284

== ENCOUNTER 2024-06-23 10:55 | Day surgery (SDC) | payer MEDICAID, SELFPAY ==
[2024-06-20 11:47] VITALS: BMI 24.7
[2024-06-23 11:35] VITALS: BP 143/85; PULSE 80; RESP 18; TEMP 36.6; O2SAT 97
[2024-06-23] MEDS: LACTATED RINGERS 1000ML 1,000 ML 50 ML IV (11:46)
--- NOTE | 2024-06-23 11:49 | ECG_ITS ---
APPROVED REPORT Exam: Resting ECG HR:82 bpm ECG Measurements Heart Rate 82 AXES DC 158 P 59 QRSd 88 QRS 78 QT 388 T -3 QTc 427 Conclusion SINUS RHYTHM LOW QRS VOLTAGE IN PRECORDIAL LEADS [QRS DEFLECTION < 1.0 mV IN CHEST LEADS] ABNORMAL QRS-T ANGLE [QRS-T AXIS DIFFERENCE > 60] ABNORMAL ECG UNCONFIRMED REPORT Electronically signed by : Mesfin Ruelas MD 06/24/2024 21:06:44
--- NOTE | 2024-06-23 12:32 | P.PNANES_ITS ---
[facility] Disclaimer: The information contained in this section may have been updated after the patient was seen, as this information can be updated by other users. Medical History Qyeeainm-hhtaycoscarp-qdnqvnv-juvenile diabetes syndrome Hyperlipidemia Atypical angina History of asthma Anaphylactic reaction to contrast media Smoking greater than 30 pack years Dyspnea on exertion COPD (chronic obstructive pulmonary disease) On mechanically assisted ventilation Anaphylactic shock CAD (coronary artery disease) Abnormal ankle brachial index (KAY) Claudication History of umbilical hernia Splenic infarct GERD (gastroesophageal reflux disease) Hypothyroid Cervical cancer Anal cancer Surgical History History of hernia surgery History of rectal surgery History of hysterectomy History of cholecystectomy Family History Family history of cardiac arrest Liver disease Colon cancer Brother Diabetes Coronary artery disease Alzheimer disease CKD (chronic kidney disease) Social History Smoking Status: Current every day smoker tobacco type: cigarettes alcohol intake: never substance use type: denies use current occupational status: unemployed Travel in the last 8 weeks: None caffeine: No Have you lived/traveled outside US in past 30 days?: No Contact w/someone who lives/traveled outside US past 30 days?: No Exposure to someone with infectious disease in past 14 days?: No Do you have a fever (greater than 100.4 F or 38 C)?: No Have you tested positive for COVID-19: No Exposed to someone with COVID-19 in past 14 days?: No Do you have a sore throat?: No Do you have a cough?: No Do you have any weakness?: No Do you have any diarrhea?: No Are you experiencing any unusual bleeding?: No Do you have any muscle aches/pain?: No Do you have any abdominal pain?: No Are you experiencing loss of taste or smell?: No [facility] Anesthesia Checklist Patient Identification Patient Identification: Arm Band Structural Data Admitted From: Home Planned Operative Procedure/s: EGD Consent for Planned Operative Procedure(s) Verified: Yes Verified Documents: Surgical Consent and History and Physical NPO Status Verified Time NPO: 00:00 Additional verifications Anesthesia Reactions: No Airway Assessment Mallampati Score:: Class II C-Spine Mobility Assessed: Yes TMJ Mobility Assessed: Yes Neurological Assessment Level of Consciousness: Awake, Alert and Appropriate Anesthesia Plan Anesthesia Risk discussed: Yes Anesthesia Plan: Verified ASA Class: III Anesthesia Type: MAC
[2024-06-23 12:58] VITALS: O2SAT 99
--- NOTE | 2024-06-23 13:10 | P.HP_ITS ---
History of Present Illness *Admission Date: 06/23/24 *Reason for visit:: Epigastric abdominal pain, heartburn, reflux and bloating *History of present illness: Mrs. Huang is a 54-year-old female who is here for diagnostic upper endoscopy secondary to dyspepsia with epigastric abdominal pain, heartburn, reflux, bloating, nausea and loss of appetite. The examination is deemed medically necessary for diagnostic EGD. The patient has been seen, interviewed and examined prior to the procedure by both myself and the anesthesia provider. [facility] Disclaimer: The information contained in this section may have been updated after the patient was seen, as this information can be updated by other users. Medical History (Updated 06/23/24 @ 13:12 by Brice Ellison II, MD) Psvyhbhl-yqcblzkvfqjs-sjladoy-juvenile diabetes syndrome Hyperlipidemia Atypical angina History of asthma Anaphylactic reaction to contrast media Smoking greater than 30 pack years Dyspnea on exertion COPD (chronic obstructive pulmonary disease) On mechanically assisted ventilation Anaphylactic shock CAD (coronary artery disease) Abnormal ankle brachial index (KAY) Claudication History of umbilical hernia Splenic infarct GERD (gastroesophageal reflux disease) Hypothyroid Cervical cancer Anal cancer Surgical History History of hernia surgery History of rectal surgery History of hysterectomy History of cholecystectomy Family History Family history of cardiac arrest Liver disease Colon cancer Brother Diabetes Coronary artery disease Alzheimer disease CKD (chronic kidney disease) Social History Smoking Status: Current every day smoker tobacco type: cigarettes alcohol intake: never substance use type: denies use current occupational status: unemployed Travel in the last 8 weeks: None caffeine: No Other Medical History Have you received the Flu Vaccine for this season: No Have you received the Pneumonia Vaccine: No Review of Systems Review of Systems Review of systems (narrative): Negative *Cardiovascular Comments: Negative *Gastrointestinal Comments: Negative *Genitourinary Comments: Negative *Musculoskeletal Comments: Negative *Neurologic Comments: Negative Meds Home Medications and Allergies Home Medications ?Medication ?Instructions ?Recorded ?Confirmed ?Type aspirin 81 mg tablet,delayed 81 mg PO DAILY #100 tabs 04/26/23 06/23/24 Rx release fluticasone propionate 50 2 spray intranasal DAILYP PRN 08/29/23 06/23/24 History mcg/actuation nasal nasal congestion spray,suspension nitroglycerin 0.4 mg sublingual 0.4 mg sublingual Q5MINP PRN chest 08/29/23 06/23/24 History tablet pain albuterol sulfate 90 mcg/actuation 2 inh inhalation QID PRN shortness 09/13/23 06/23/24 Rx aerosol inhaler of breath or wheezing 90 days #8.5 grams omeprazole 20 mg capsule,delayed 20 mg PO DAILY #90 caps 12/10/23 06/23/24 Rx release evolocumab 140 mg/mL subcutaneous 140 mg SQ Q2W #2 mL 04/11/24 06/23/24 Rx pen injector (Tim Rivera) lorazepam 1 mg tablet 1 mg PO NEEDED PRN Anxiety 06/23/24 06/23/24 History New Prescriptions to Start Prescriptions: Allergies Allergy/AdvReac Type Severity Reaction Status Date / Time Iodinated Contrast Media Allergy Severe Anaphylaxis Verified 06/23/24 11:32 Exam Data for Last 24 hours Vital signs and Labs for Last 24 Hours: Temp Pulse Resp BP Pulse Ox O2 Del Method O2 Flow Rate 97.8 F 80 18 143/85 H 97 Nasal Cannula 5 06/23/24 11:35 06/23/24 11:35 06/23/24 11:35 06/23/24 11:35 06/23/24 11:35 06/23/24 12:58 06/23/24 12:58 I & O for Last 24 hours: Intake & Output 06/20/24 06/21/24 06/22/24 06/23/24 23:59 23:59 23:59 23:59 Weight 140 lb *Routine HEENT Exam Head: Present normocephalic Eye: Present EOMI and PERRL ENT: Present mucous membranes moist *Routine Neck Exam Neck: Present supple *Routine Respiratory Exam Respiratory: Present CTA bilaterally *Routine Cardiovascular Exam Cardiovascular: Present RRR *Routine Abdominal Exam Abdominal: Present soft and normoactive bowel sounds; Absent tenderness *Routine Rectal Exam Rectal:: deferred *Routine Genitalia Exam Genitalia:: deferred *Routine Extremities Exam Extremities: Absent cyanosis, clubbing or edema *Routine Skin Exam Skin: Present warm; Absent rash *Routine Neurological Exam Neurological: Present alert and oriented X3 Assessment and Plan *Assessment and plan (1) Epigastric pain: Status: Acute Category: Medical Code(s): R10.13 - Epigastric pain (2) Bloating: Status: Acute Category: Medical Code(s): R14.0 - Abdominal distension (gaseous) (3) Nausea: Status: Acute Category: Medical Code(s): R11.0 - Nausea (4) Early satiety: Status: Acute Category: Medical Code(s): R68.81 - Early satiety (5) Heartburn: Status: Acute Category: Medical Code(s): R12 - Heartburn (6) Loss of appetite: Status: Acute Category: Medical Code(s): R63.0 - Anorexia Plan A/P: 1. Functional dyspepsia with epigastric abdominal pain, bloating, nausea, early satiety, heartburn and loss of appetite is the preprocedural diagnosis. The patient will be anesthetized/sedated using MAC sedation. The patient has been seen and examined. Cardiac and lung assessment prior to the examination is stable. Proceed with planned diagnostic EGD
--- NOTE | 2024-06-23 13:17 | HMH.PROCNOTE ---
[facility] Procedure Note Date: 06/23/24 Time: 13:17 Procedure Note:: Upper Endoscopy Procedure Report: Esophagogastroduodenoscopy with cold biopsies Endoscopost: Brice Ellison II, MD Referring Physician: Timoteo Martinez MD Date of Procedure: June 23, 2024 Equipment: Olympus GIF 190 standard upper endoscope Sedation: MAC sedation Indications: Mrs. Huang is a 54-year-old female with functional dyspepsia and IBS. She does state that she had bleeding gastric ulcers at the age of [age]. She has had chronic epigastric abdominal pain postprandially with bloating, nausea, early satiety, heartburn and reflux. She has had some loss of appetite. She did have a recent CAT scan of the abdomen and pelvis that was unremarkable. This did show some fecal retention. She does have a history of IBS with constipation and may skip 3 days between bowel movements. She was placed on dicyclomine 4 times daily and did not have improvement. The patient does have a history of anal cell carcinoma and follows with Dr. Tracey Bedoya M.D. (colorectal surgery) at the [facility]. The patient had a prior omental infarct and partial splenic infarct with extensive abdominal surgery. She does have a bladder sling. Her last colonoscopy was July 2023 (Karin Baker MD) and was normal and given 5-year surveillance. Her last EGD was 7 years ago. The patient reports no dysphagia. She does take omeprazole that controls her GERD and heartburn. Procedure: Prior to the procedure, a history and physical exam was performed, and patient's medications and allergies were reviewed. The risks, benefits and alternatives of the sedation and procedure were discussed with the patient. All questions were answered and informed consent was obtained. The patient was brought to the procedure room. Patient identification and proposed procedure were verified by the physician and the nurse. The patient was placed in a left lateral decubitus position and the scope was passed under direct vision. Throughout the procedure, the patient's blood pressure, pulse, and oxygen saturations were monitored continuously. The upper GI endoscopy was accomplished without difficulty. The patient tolerated the procedure well. Findings: The scope was passed directly into the upper esophagus and advanced to the third portion of the duodenum. The post bulbar duodenum, ampulla and duodenal bulb were normal with normal mucosa and conniventes. Cold biopsies were taken from the first portion of duodenum to rule out celiac disease. The scope was withdrawn through a normal duodenal bulb and pylorus into the stomach. There was mild linear reactive gastropathy of the antrum and body. There was a reticular mosaic pattern to the body and fundus consistent with chronic gastritis. Biopsies were taken from the lesser curvature to rule out H. pylori. Upon retroflexion there was a very small sliding 1 to 2 cm hiatal hernia. The scope was then withdrawn into the esophagus. There was a single tongue of salmon-colored mucosa was biopsied in the distal esophagus. There was no evidence of reflux esophagitis or Dudley's. There were tertiary contractions and evidence of mild esophageal dysmotility. The remainder of the esophageal mucosa was normal. Impression: 1. Nonerosive GERD with moderate esophageal dysmotility and small sliding 1 to 2 cm hiatal hernia 2. Mild antral reactive gastropathy and mild chronic gastritis?rule out H. pylori Plan: I will follow-up the biopsies. The patient does have functional dyspepsia. We will discuss additional treatment options which may include dietary measures, Iberogast and neuromodulation.
[2024-06-23 13:26] VITALS: BP 113/65; PULSE 94; RESP 17; TEMP 36.5; O2SAT 97
[2024-06-23 13:36] VITALS: BP 118/73; PULSE 93; RESP 18; O2SAT 96
[2024-06-23 13:46] VITALS: BP 108/77; PULSE 97; RESP 18; O2SAT 95
--- NOTE | 2024-06-23 13:47 | SUR.PREOP ---
Cardiology follow up appointment made @ pt request.
[2024-06-23 13:56] VITALS: BP 107/79; PULSE 89; RESP 20; O2SAT 98
== END 2024-06-23 13:58 | disposition home or self-care (01) ==
PROVIDERS: PCP Family Medicine; Visit Provider Internal Medicine Gastroenterology
PROC: 0DJ08ZZ Inspection of Upper Intestinal Tract, Via Natural or Artificial Opening Endoscopic (ICD-10-PCS; CPT 43239; principal; 2024-06-23 12:30)
DX: K31.9 Disease of stomach and duodenum, unspecified (principal); K29.70 Gastritis, unspecified, without bleeding; K21.9 Gastro-esophageal reflux disease without esophagitis; K22.4 Dyskinesia of esophagus; K44.9 Diaphragmatic hernia without obstruction or gangrene; R10.13 Epigastric pain; R14.0 Abdominal distension (gaseous); R11.0 Nausea; R68.81 Early satiety; R63.0 Anorexia
CPT/HCPCS: 43239; 93005; J7120

== ENCOUNTER 2024-07-01 10:06 | Outpatient (CLI) | payer MEDICAID, SELFPAY ==
[2024-07-01 10:35] LABS: Basophils # 0.1 K/mm3 (0-0.2); Basophils % 0.5 % (0.1-2.0); Eosinophils # 0.5 K/mm3 (0.0-0.4); Eosinophils % 4.1 % (0.1-12.0); Hematocrit 43.6 % (37.0-47.0); Hemoglobin 14.3 g/dL (12.2-16.2); Lymphocytes # 2.5 K/mm3 (0.7-4.5); Lymphocytes % 20.4 % (10-50); Mean Corpuscular HGB Conc 32.8 g/dL (31.8-35.4); Mean Corpuscular Volume 94.4 fl (81-99); Mean Platelet Volume 9.5 fl (7.4-10.4); Monocytes # 0.7 K/mm3 (0.1-1.0); Monocytes % 5.7 % (1.7-9.3); Neutrophils # 8.5 K/mm3 (1.8-7.8); Neutrophils % 68.3 % (37.0-80.0); Platelet Count 319 K/mm3 (142-424); Red Blood Count 4.62 M/mm3 (4.20-5.40); Red Cell Distribution Width 14.8 % (11.5-17.5); White Blood Count 12.4 K/mm3 (4.8-10.8)
[2024-07-01 10:52] LABS: Albumin Level 4.4 g/dl (3.5-5.0); Chloride 109 mmol/L (98-107); Sodium 146 mmol/L (136-145)
[2024-07-01 10:53] LABS: Potassium 3.8 mmoL/L (3.5-5.1)
[2024-07-01 10:55] LABS: Alanine Aminotransferase 14 U/L (12-78); Alkaline Phosphatase 75 U/L (38-126); Anion Gap 8.8 mEq/L (5-15); Aspartate Amino Transferase 20 U/L (14-36); Bilirubin,Direct 0.1 mg/dl (0.0-0.4); Bilirubin,Indirect 0.3 mg/dL (0.0-0.9); Bilirubin,Total 0.4 mg/dl (0.2-1.3); Bilirubin,Unconjugated 0.4 mg/dL (0.0-1.1); Blood Urea Nitrogen 7 mg/dl (7-17); Carbon Dioxide 32 mmol/L (22.0-30.0); Cholesterol 219 mg/dl (140-200); Estimated Glomerular Filt Rate 87 ml/min (>60); GFR (African American) 105 ML/MIN (>60); Total Protein,Serum 6.6 g/dl (6.3-8.2); Triglycerides 169 mg/dl (30-150); VLDL Cholesterol 34 mg/dL (0-40)
[2024-07-01 10:56] LABS: Calcium 9.3 mg/dl (8.4-10.2); Chol/HDL Ratio 5.1 (1-3.5); Glucose 86 mg/dl (74-100); HDL Cholesterol 43 mg/dl (40-60)
[2024-07-01 11:07] LABS: Direct LDL Cholesterol 137.67 mg/dL (100-129)
[2024-07-01 11:13] LABS: Free T4 (Free Thyroxine) 1.25 ng/dl (0.78-2.19)
[2024-07-01 11:27] LABS: Thyroid Stimulating Hormone 1.89 uIU/mL (0.465-4.68)
== END 2024-07-01 23:59 | disposition home or self-care (01) ==
LOC: LAB 10:07
PROVIDERS: PCP Family Medicine; Visit Provider Physician Assistant
DX: I10 Essential (primary) hypertension (principal); I20.89 Other forms of angina pectoris; E78.2 Mixed hyperlipidemia; R06.09 Other forms of dyspnea
CPT/HCPCS: 36415; 80048; 80061; 80076; 84439; 84443; 85025

== ENCOUNTER 2024-08-01 09:58 | Outpatient (CLI) | payer MEDICAID, SELFPAY ==
--- NOTE | 2024-08-01 | CA_ITS ---
APPROVED REPORT EXAM: Comprehensive 2D, Doppler, and color-flow Echocardiogram Mid Level Clinician: Neeta Wellington RT(R) Ht: 5 ft 3 in Wt: 156lbs BSA: 1.74 BP: 157/103 mmHg Indications: CP, COPD, smoker, palpitations, HLD, family history of HD, ESPINO. 2D Dimensions LVEF (Nguyen's) 52.70 % F: 54 - 74 LV Volume 65.70 mL F: 46 - 106 LV Volume Index 37.8 mL/m2 F: 29 - 61 LA Volume 14.50 mL LA Volume Index 8.33 mL/m2 (M/F) 16-34 EF AP4 51.30 % EF AP2 54.1 % EF BP 52.7 % GL Strain -15.4 % M-Mode Dimensions RVDd 2.08 cm (0.9-2.6) LA Diam 2.65 cm (1.9-4.0) LVDd 5.04 cm (3.5-5.7) LVDs 4.24 cm (3.5-5.7) IVSd 0.61 cm (0.6-1.1) PWd 0.76 cm (0.6-1.1) EF (Teich) 33.30% FS 15.90% EDV (Teich) 120.50 mL ESV (Teich) 80.40 mL LV Diastology E Decel Time 130 (160-240 msec) E/A Ratio 0.71 Mitral Valve MV A Velocity 105.0 (40-130 cm/s) E/A Ratio 0.71 Left Ventricle The left ventricle is normal size. The left ventricular systolic function is normal. The left ventricular ejection fraction is within the normal range. There is increased overall thickness. There is normal LV segmental wall motion. Transmitral Doppler flow pattern suggests impaired LV relaxation. LVEF is 55%. Right Ventricle The right ventricle is normal size. The right ventricular systolic function is normal. Atria The left atrium size is normal. The right atrium size is normal. There is no Doppler evidence of interatrial shunt. Aortic Valve The aortic valve opens well. There is no aortic valvular stenosis. No aortic regurgitation is present. Mitral Valve The mitral valve is normal in structure. No evidence of mitral valve stenosis. Trace mitral regurgitation. Tricuspid Valve Tricuspid valve is grossly normal in structure and function. Trace tricuspid regurgitation. There is insufficient TR jet to estimate RVSP. Pulmonic Valve The pulmonary valve is normal in structure. Trace pulmonic regurgitation. Great Vessels The aortic root is normal in size. IVC is normal in size and collapses >50% with inspiration. Pericardium There is no pericardial effusion. An epicardial fat pad is present. Other Information Study Quality: Fair Conclusion Normal biventricular systolic function. No significant valvular stenosis or regurgitation. Electronically signed by : Abbey Crawford MD 08/07/2024 14:04:50
--- OUTSIDE RECORDS SUMMARY | 2024-08-01 10:00 | XMS_ITS | Data Portability ---
Author Organization [facility] Address [address] [place] [id number] Assessment No assessment recorded. Plan of Treatment Reminders Order Date Submit Date Provider Last Modified By Organization Details Last Modified Time Details Appointments None recorded. Lab None recorded. Referral None recorded. Procedures None recorded. Surgeries None recorded. Imaging US, duplex, carotid artery 2021 022 [email or web address] [place] (Centralized Scheduling)[address] Lorie King, [place], [address], 10:40:57 electrocard iogram [address], [place], [address], 13:40:31 Medication Orders None recorded. Patient TargetsNo targets recorded. Patient Instructions Encounter Date Encounter Id Patient Instructions Last Modified By Organization Details Last Modified Time 12/20/2021 [id number] (KAY) ankle brachial index* [email or web address] Not available 01/04/2022 10:41:09 Reason for Referral None Reported. Results Created Date Observation Date Name Description Value Unit Range Abnormal Flag Note LastModifiedBy Organization Detail LastModifiedTime 12/21/19 22 elect rocar diogr am No observ ation record ed. [address], [place], [address], 12/20/2021 12:23:43 12/21/19 22 elect rocar diogr am No observ ation record ed. [email or web address] Not Available 2021 12:25:21 Result Notes None recorded. Problems Name Problem SNOMED Code Status Onset Date Resolution Date Notes Provider Name and Address Organization Details Recorded Time Coronary arterioscle rosis 25845784 Active 2021 Jaguar Pereiraor null, [place] - [facility] - [facility] & [place] 2 12:21:07 Carotid artery stenosis 37606062 Active 2021 Jaguar Franklyn null, [place] - [facility] - [facility] & [place] 2 12:21:05 Near syncope 018559082 Active 2021 Jaguar Franklyn null, [place] - [facility] - [facility] & [place] 2 12:21:19 Intermitten t claudicatio n 12504108 Active 2021 Jaguar Franklyn null, [place] - [facility] - [facility] & [place] 2 12:21:15 Deviated nasal septum 192621410 Active Jaguar Franklyn null, [place] - [facility] - [facility] & [place] 2 12:21:10 Perception of hearing loss 2688914057449 4101 Active Jaguar Franklyn null, [place] - [facility] & [place] 2 12:18:18 Gastroesoph ageal reflux disease without esophagitis 238458411 Active Jaguar Pereiraor null, [place] - [facility] & [place] 2 12:21:12 Hoarse 25617473 Active Jaguar Pereiraor null, [place] - [facility] - & [place] 2 12:18:18 Problem Notes None recorded. Procedures Surgical History Date Name Laterality Status Provider Name and Address Organization Details Recorded Time proctoscopy completed Jaguar Pereiraor [place] - [facility] - [facility] & [place] 12/20/2021 12:22:14 cardiac catheterization completed Jaguar Pereiraor [place] [facility] 12/20/2021 12:22:20 Imaging Results Imaging Date Name Status LastModified by Organization Details LastModified Time 12/20/2021 electrocardiogram completed [email or web address], [place], [address], 12/20/2021 12:23:43 12/20/2021 electrocardiogram completed Informa tion not available 12/20/2021 12:25:21 Procedure Notes None recorded. Medical Equipment None Reported. Allergies No known drug allergies Medications Name Sig Start Date Stop Date Status Note LastModified by Organization Details LastModified Time atorvastati n 40 mg tablet Take 1 tablet every day by oral route as directed. active Not Available Not Available No t Available Retin-A 0.05 % topical cream APPLY TO THE AFFECTED AREA(S) BY TOPICAL ROUTE ONCE DAILY AT BEDTIME 12/20 completed Not Available Not Available Not Available nicotine 14 mg/24 hr daily transdermal patch APPLY 1 PATCH TOPICALLY ONCE DAILY 12/20 completed Not Available Not Available Not Available clindamycin HCl 300 mg capsule TAKE ONE (1) CAPSULE THREE (3) TIMES A DAY BY ORAL ROUTE FOR 10 DAYS. 12/20 completed Not Available Not Available Not Available senna 8.6 mg tablet 12/20 completed Not Available Not Available Not Available phenazopyri dine 200 mg tablet TAKE 1 TABLET BY MOUTH THREE (3) TIMES DAILY AFTER MEALS FOR FIVE (5) DAYS 12/20 completed Not Available Not Available Not Available norethindro ne-eth. estradiol-i aleksandra 1-20 (5)/1-30(7) /1mg-35mcg( 9) tablet Take 1 tablet every day by oral route as directed for 28 days. active Not Available Not Available No t Available Elmiron 100 mg capsule 12/20 completed Not Available Not Available Not Available omeprazole 40 mg capsule,del ayed release TAKE 1 CAPSULE BY MOUTH ONCE DAILY active Not Available Not Available No t Available acetaminoph en 500 mg tablet 12/20 completed Not Available Not Available Not Available triamcinolo ne acetonide 0.1 % topical cream APPLY A THIN LAYER TO THE AFFECTED AREA(S) BY TOPICAL ROUTE TWO (2) TIMES PER DAY 12/20 completed Not Available Not Available Not Available amitriptyli ne 25 mg tablet TAKE ONE (1) TABLET EVERY DAY BY ORAL ROUTE AT BEDTIME. 12/20 completed Not Available Not Available Not Available estradiol 1 mg tablet TAKE 1 TABLET BY MOUTH ONCE DAILY 12/20 completed Not Available Not Available Not Available ropinirole 0.25 mg tablet TAKE ONE (1) TABLET EVERY DAY BY ORAL ROUTE AT BEDTIME FOR 30 DAYS. 12/20 completed Not Available Not Available Not Available meclizine 25 mg tablet TAKE 2 TABLETS BY MOUTH THREE TIMES DAILY NEEDED FOR DIZZINESS 12/20 completed Not Available Not Available Not Available folic acid 1 mg tablet TAKE ONE (1) TABLET EVERY DAY BY ORAL ROUTE. 12/20 completed Not Available Not Available Not Available ibuprofen 600 mg tablet 12/20 completed Not Available Not Available Not Available methylpredn isolone 4 mg tablets in a dose pack TAKE DIRECTED FOR SIX (6) DAYS 12/20 completed Not Available Not Available Not Available hydroxyzine HCl 10 mg tablet TAKE ONE (1) TABLET THREE (3) TIMES A DAY BY ORAL ROUTE NEEDED FOR 10 DAYS. 12/20 completed Not Available Not Available Not Available diazepam 5 mg tablet 12/20 completed Not Available Not Available Not Available Premarin 0.625 mg/gram vaginal cream INSERT 1 GRAM TWICE WEEKLY BY VAGINAL ROUTE 12/20 completed Not Available Not Available Not Available nitrofurant oin monohydrate /macrocryst als 100 mg capsule TAKE ONE (1) CAPSULE BY ORAL ROUTE TWO (2) TIMES A DAY FOR 7 DAYS 12/20 completed Not Available Not Available Not Available trospium 20 mg tablet Take 1 tablet twice a day by oral route as directed. active Not Available Not Available No t Available ProAir HFA 90 mcg/actuati on aerosol inhaler INHALE 2 PUFFS BY MOUTH 4 TIMES DAILY NEEDED FOR SHORTNESS OF BREATH FOR WHEEZING 12/20 completed Not Available Not Available Not Available cholecalcif boo (vitamin D3) 1,250 mcg (50,000 unit) capsule TAKE ONE (1) CAPSULE EVERY WEEK BY ORAL ROUTE. 12/20 completed Not Available Not Available Not Available Vitals Date Recorded Body weight Oxygen saturation Oxygen saturation in Arterial blood by Pulse oximetry Heart rate Systolic blood pressure Diastolic blood pressure Provider Name and Address Organization Details Last Updated DateTime 2 57805.2 5 g 96 % 96 % 80 /min 130 mm[Hg] 68 mm[Hg] Jaguar RODRÍGUEZ [facility] & [place] 2 12:17:43 Social History Question Answer Notes LastModified by Organizat ion Details LastModified Time Tobacco Smoking Status Current Every Day Smoker Jaguar Estes [facility], [place] - [facility] & [place] 12/20/2021 12:21:45 What Is Your Level Of Alcohol Consumption? None [email or web address] Information not available 12/20/2021 What Is Your Level Of Caffeine Consumption? None Information not available 12/20/2021 How Much Tobacco Do You Smoke? 1 PPW [email or web address] Information not available 12/20/2021 Do You Use Any Illicit Or Recreational Drugs? No [email or web address] Information not available 12/20/2021 Has Tobacco Cessation Counseling Been Provided? No [email or web address] Information not available 12/20/2021 Do You Or Have You Ever Used Any Other Forms Of Tobacco Or Nicotine? No [email or web address] Information not available 12/20/2021 Sex: Unknown Functional Status None recorded. Mental Status None recorded. Family History Relationship Description Onset Age of this Age Resolved Age Notes LastModified by Organization Details LastModified Time Father No current problems or disability [email or web address] Not available 12/20 12:21:26 Mother No current problems or disability [email or web address] Not available 12/20 12:21:26 Medical History Condition Response Coronary Artery Disease N Thyroid Disease N Atrial Fibrillation N Congenital Heart Disease N COPD Y Depression N Peripheral Arterial Disease N Pacemaker N Anemia N TIA N Genitourinary Disease N Gastrointestinal Disease N Deep Vein Thrombosis N Diabetes N Cardiomyopathy N Blood Clot N Myocardial Infarction N Congestive Heart Failure (CHF) N Valvular Heart Disease N Hyperlipidemia Y Cancer N Stroke N Asthma N Atrial Flutter N Carotid Disease N Sleep Apnea N Sleep Disorder N Aortic Aneurysm N GERD/Reflux N High Cholesterol N Warfarin Management N Neurologic Disorder N Liver Disease N Heart Disease N Valvular Abnormalities N Arrhythmia N Hypertension N Kidney Disease N Hematologic Disease N Gynecological HistoryNo gynecological history recorded. Obstetrics History GPAL:G 0 P 0 0 0 0 Past Encounters Encounter ID Performer Location Encounter Start Date Encounter Closed Date Diagnosis/Indication Diagnosis SNOMED-CT Code Diagnosis ICD10 Code Diagnosis Note [id number] Sukhi Hall MD [place] [address] [place] [address] 12/20/2021 08:53:16 12/20/2021 09:50:16 Coronary arteriosclerosis 34058076 I25.10 mild coronary artery disease. She is post cardiac catheteriz ation. No interventi on was needed. Blood pressure and heart rate are under good control. Her echocardio gram showed normal function is 60-65% with no valvular issues. She does have claudicati on and history of tobacco use. Will get an ankle-brac hial indices. She also has presyncope . Will get a carotid ultrasound . Meds and chart reviewed in full today. Her groin is well healed. EKG shows normal sinus rhythm with nonspecifi c ST and T-wave changes. No change from baseline. Follow-up in Cardiology Clinic in 4-5 weeks for further evaluation and treatment Continue current medication sContinue aggressive risk factor modificati onRecommen d LDL cholestero l of less than 100 in this patient with coronary artery diseaseEnc ouraged tobacco avoidanceA nkle-brach ial indicesCar otid ultrasound Follow-up in 4-5 weeks for further evaluation and treatmentR ecommend aspirin 81 mg daily Carotid ar anyi stenosis 41697004 I65.23 Near syncope 629863396 R 55 Intermitte nt claudication 17287399 I73.9 Tobacco user 511212004 Z 72.0 Health Concerns Section Related Observation LastModified by Organization Detai ls LastModified Time None Recorded Concern Status LastModified by Organization Details LastModified Time None Recorded Advance Directives Directive None Recorded Payers Encounter Date Sequence Insurance Name Policy Number Policy Pritchard Covered Member ID Pritchard Member ID Guarantor Name 12/20/2021 1 [id number] Caitlin Huang [id number] Eduardo Huang Notes Date Note Type Note Provider Name and Address Organization Details Recorded Time 12/20/2021 text/html patient still ontiveros s some shortness of breath. No further chest pain or pressure. Some mild dizziness and lightheadedness and presyncopal spells. She also has bilateral leg pain with ambulation and symptoms of claudication Sukhi Hall MD [address] [facility],[address], [place], [address], [facility] - [facility] - [place] & [place] 12/20/2021 13:40:34 OBGyn Episode No OBEpisode recorded.
== END 2024-08-01 23:59 | disposition home or self-care (01) ==
LOC: RT 09:58
PROVIDERS: PCP Family Medicine; Visit Provider Physician Assistant
DX: I11.9 Hypertensive heart disease without heart failure (principal); I25.10 Atherosclerotic heart disease of native coronary artery without angina pectoris; R42 Dizziness and giddiness; R07.89 Other chest pain; R06.09 Other forms of dyspnea
CPT/HCPCS: 93306

== ENCOUNTER 2024-12-22 10:48 | Outpatient (RCR) | payer MEDICAID, SELFPAY ==
--- NOTE | 2024-12-22 12:01 | [facility].PTOPEV ---
PT Evaluation Rehab PT Outpatient Evaluation Start: 12/22/24 10:53 Freq: Status: Active Protocol: Document 12/22/24 10:54 ERUM (Rec: 12/22/24 12:01 ERUM [id number]) E-signed By Cinthya Salas, PT Outpatient Therapy Subjective History Subjective History Pt is a 54 y/o female who reports chronic R>L foot pain for years. Pt denies known trauma or injury and reports gradual worsening of pain overtime. Pt states the whole foot hurts on both sides but the heel seems to be the worst . Pt reports pain is constant with intermittent paresthesia of the top and the bottom aspect of the feet. Pt states all toes of the R foot and the lateral three digits of the left foot go numb at times. Pt reports pain is aggravated by standing, walking, stair climbing, walking on uneven terrain and wearing tight shoes. Pt reports pain is severe and keeps her up at night time. Pt reports her balance seems to be off especially when walking after prolonged and on uneven. Pt denies recent falls or required use of an AD. Pt denies swelling or discoloration of her feet. Pt reports she has had multiple injections for her feet with only short-term improvement. Pt states she got an injection last month which has already wore off. Pt states she has tried a night splint and orthotics in her shoes without improvement in symptoms, reports she has not tried metatarsal pads. Pt reports her R>L knee and hip are starting to hurt her due to foot pain. Pt reports new onset of intermittent paresthesia of the right leg that starts when foot pain is severe. Pt also reports chronic LBP. Medical History: HTN (hypertension), Dizziness, Thrucyat-ofyhnwffkzps-sdsnkeb-juvenile diabetes syndrome, Hyperlipidemia, Atypical angina, History of asthma, Anaphylactic reaction to contrast media, Smoking greater than 30 pack years, Dyspnea on exertion , COPD (chronic obstructive pulmonary disease), CAD ( coronary artery disease), Abnormal ankle brachial index (KAY), Claudication, History of umbilical hernia, Splenic infarct, GERD (gastroesophageal reflux disease) , Hypothyroid, Cervical cancer, Anal cancer New diagnosis of No: Hx of anal cancer with surgery 1 year ago cancer in past 12 months? Chief Complaint Pain,Paresthesia Symptom Type Sharp Symptoms Relieved By Nothing Symptoms Aggravated Standing,Physical Activity,Walking By Current Functional Driving,Sleeping,Standing Limitations Symptom Description Constant but Variable Level of pain today 5 (0-10) Pain scale - at its 5 best (0-10) Pain scale - at its 10 worst (0-10) Ankle/Foot Eval Gait Observation General Gait Pattern Antalgic Gait Observation Assistive Device Ambulation Assistive None Device Palpation Tenderness left Ankle/Foot Palpation Tenderness Findings Ankle/Foot Palpation 1/4 medial arch, PF and origin, posterior tib Overall Comment right Ankle/Foot Palpation Tenderness Findings Ankle/Foot Palpation 2/4 medial arch, PF and origin, posterior tib Overall Comment ROM left Ankle/Foot 12 Dorsiflexion w/Knee Extended Active Range Motion ( degrees) Ankle/Foot Plantar 44 Flexion Active Range of Motion (degrees) Ankle/Foot Eversion 20 Active Range of Motion (degrees) Ankle/Foot Inversion 30 Active Range of Motion (degrees) right Ankle/Foot 10 Dorsiflexion w/Knee Extended Active Range Motion ( degrees) Ankle/Foot Plantar 40 Flexion Active Range of Motion (degrees) Ankle/Foot Eversion 15 Active Range of Motion (degrees) Ankle/Foot Inversion 25 Active Range of Motion (degrees) MMT left Ankle Dorsiflexion 4 Good Strength Grade Ankle Plantarflexion 4 Good Strength Grade Foot Eversion 4 Good Strength Grade Foot Inversion 4 Good Strength Grade right Ankle Dorsiflexion 4- Good- Strength Grade Ankle Plantarflexion 4- Good- Strength Grade Foot Eversion 4- Good- Strength Grade Foot Inversion 4- Good- Strength Grade Balance Eval Rhomberg Feet Together/Eyes pass open/Stable Surface Feet Together/Eyes fail Closed/Stable Surface Feet Together/Eyes fail open/Unstable Surface Feet Together/Eyes fail Closed/Unstable Surface Lower Extremity Functional Index Activities Today, do you or would you have any difficulty at all with: a.Any of your usual Quite a bit of difficulty work, housework or school activities b. Your usual Quite a bit of difficulty hobbies, recreational or sporting activities c. Getting into or Moderate difficulty out of the bath d. Walking between Moderate difficulty rooms e. Putting on your No difficulty shoes or socks f. Squatting Moderate difficulty g. Lifting an object A little bit of difficulty , like a bag of groceries from the floor h. Performing light Moderate difficulty activities around your home i. Performing heavy Moderate difficulty activities around your home j. Getting into or Moderate difficulty out of a car k. Walking 2 blocks Quite a bit of difficulty l. Walking a mile No difficulty m. Going up or down Moderate difficulty 10 stairs (about 1 flight of stairs) n. Standing for 1 Quite a bit of difficulty hour o. Sitting for 1 A little bit of difficulty hour p. Running on even Quite a bit of difficulty ground q. Running on uneven Quite a bit of difficulty ground r. Making sharp Quite a bit of difficulty turns while running fast s. Hopping Quite a bit of difficulty t. Rolling over in A little bit of difficulty bed LEFI Score Lower Extremity 39 Functional Index Score Miscellaneous Dx PT Eval Objective Objective Observation: pes planus and hallux valgus noted bilaterally Edema: RLE malleoli circumference 24c, L 22.5cm Special tests: Negative slump test bilaterally Positive Windlass test R, Negative L Negative Tinel's at tarsal tunnel, positive on plantar surface of metatarsals Outpatient Therapy Assessment Impairments Problems/ Palpation Tenderness,Impaired Range of Motion,Impaired Impairmments Strength,Impaired Walking,Impaired Standing,Impaired Stair Climbing,Impaired Incline Stepping,Impaired Stepping on Uneven Surface,Impaired Balance,Subjective C/O Pain,Impaired Self Care/Self Management Prognosis Rehab Potential Good Clinical Impression Consistent with Yes Diagnosis Additional details: Signs & symptoms most consistent with plantar fasciitis and metatarsalgia PT Patient Goals PT Patient Goals PT Short Term 3 weeks: Patient Goals 1. Verbalize compliance with HEP to assist with progress. 2. Improve LEFS score to 45/80 to improve overall QOL/ function. 3. Improve pain at worst to 8/10 to improve overall QOL . 4. Tolerate wear of metatarsal pads with standing and walking to assist with pain and paresthesia PT Prison Patient 6 weeks: Goals 1. Improve ankle AROM to WFL to assist with mobility and function. 2. Improve BLE ankle MMT to 4-4+/5 grossly to assist with function. 3. Improve LEFS score to at least 55/80 to improve overall QOL/function. 4. Improve pain at worst to 6/10 to improve overall QOL . 5. Perform balance activity FT EC unstable surface x30 without LOB to decrease fall risk. Outpatient Therapy Plan of Care Treatment Plan May Include Therapeutic Exercise Yes Including Home Exercise Program Manual Therapy Yes Techniques Neuromuscular Re- Yes education Therapeutic Yes Activities to Return to Previous Functional/Work Level Gait Training Yes ADL/Self Care Yes Education Dry Needling Yes Thermal Modalities Yes Electrical Yes Stimulation Ultrasound/ Yes Phonophoresis Iontophoresis Yes Orthotics/Bracing/ Yes Splinting Vasopneumatic Yes Compression Pump Massage Yes Manual Lymphatic Yes Drainage Eval/Re-Eval Yes Frequency Times per week 2 Duration Number of Weeks 6 Addendums This patient is a No candidate for social or vocational rehab ? Patient/Guardian Yes verbally acknowledges understanding of treatment program and consents to further treatment? Patient/Guardian Yes verbally acknowledges understanding of diagnosis, prognosis and goals for treatment? Eval Complexity PT Charges 00447 - Moderate Complexity Shoulder/Elbow Eval Shoulder Objective Measurements Elbow Objective Measurements PHYSICIAN CERTIFICATION: I certify the specified therapy services for Caitlinregine Huang are required, authorized, and reviewed every 30 days.
== END 2024-12-22 23:59 | disposition home or self-care (01) ==
LOC: PT 10:48
PROVIDERS: Visit Provider Podiatrist
DX: G57.53 Tarsal tunnel syndrome, bilateral lower limbs (principal)
CPT/HCPCS: 97162